=== PATIENT | female | born 1960 | race Caucasian/White ===

== ENCOUNTER 2017-08-20 00:10 | Emergency (ER) | payer OTHER, MEDICARE ==
[2017-08-20 00:17] VITALS: PULSE 61; RESP 18; TEMP 97.7
--- NOTE | 2017-08-20 00:25 | ED ---
General Adult HPI - General Chief complaint: Recheck/Abnormal Lab/Rx Stated complaint: High Blood Sugar Time Seen by Provider: 08/20/17 00:15 Source: patient, RN notes reviewed Mode of arrival: ambulatory Limitations: no limitations - History of Present Illness Initial comments: This is a 56-year-old female with a past medical history significant for kidney transplant and diabetes. Patient comes in today because she ran out of insulin for her insulin pump about 1 hour prior to arrival. Patient states she's completely asymptomatic. Patient states her blood pressure was mildly elevated in triage because she is she is very anxious and she does not want to be treated for that while she's here at this time. Patient also does not want any subcu Humalog she will bolus herself with her pump. Patient denies any recent fever chills or cough. Patient denies any chest pain difficulty breathing shortest breath per patient denies any abdominal pain patient denies nausea vomiting diarrhea. Patient does not want to be worked up for anything she just would like some insulin for her insulin pump. - Related Data Home Medications Medication Instructions Recorded Confirmed Aspirin 81 mg PO DAILY 10/02/15 01/10/16 Levothyroxine Sodium [Synthroid] 100 mcg PO QAM 10/02/15 01/10/16 Sertraline HCl 100 mg PO HS 10/02/15 01/10/16 Metoprolol Tartrate [Lopressor] 100 mg PO BID 12/04/15 01/10/16 Isosorbide Mononitrate ER [Imdur] 60 mg PO QAM 01/02/16 01/10/16 Nitroglycerin Sl Tabs [Nitrostat] 0.4 mg SL Q5M PRN 01/02/16 01/10/16 amLODIPine [Norvasc] 10 mg PO QAM 01/02/16 01/10/16 Hydrocodone/Acetaminophen [Concepcion 1 - 2 tab PO Q4HR PRN 01/09/16 01/10/16 5-325] Insulin Lispro [humaLOG] See Protocol SQ CONTINUOUS 01/10/16 01/10/16 Propylene Glycol/Peg 400/Pf 1 drop BOTH EYES BID 01/10/16 01/10/16 [Systane 0.3-0.4% Eye Drops] Previous Rx's Medication Instructions Recorded ALPRAZolam [Xanax] 0.25 mg PO TID PRN #90 tab 12/12/15 Sevelamer [Renvela] 800 mg PO TID-W/MEALS #90 tab 12/12/15 Atorvastatin [Lipitor] 40 mg PO HS #90 tab 01/05/16 Ranolazine [Ranexa] 500 mg PO Q12HR #180 tab.er.12h 01/05/16 Amikacin IV Per Pharmacy [Pharmacy 1 each MISCELLANE DIRECTED #42 01/16/16 To Dose IV Amikacin] misc Darbepoetin Crispin [Aranesp] 40 mcg SQ Q7D #4 syringe 01/16/16 Doxycycline [Vibramycin] 100 mg PO BID #84 cap 01/16/16 Folic Acid-Vit B Complex-Vit C 1 each PO DAILY@1200 cap 01/16/16 [Nephrocaps] Furosemide [Lasix] 60 mg PO DAILY #180 tab 01/16/16 Lactulose [Cephulac] 30 gm PO DAILY #1000 ml 01/16/16 Melatonin 6 mg PO HS #60 tablet 01/16/16 Allergies Allergy/AdvReac Type Severity Reaction Status Date / Time nifedipine [From Procardia] AdvReac Rapid Verified 08/20/17 00:17 Heart Rate Review of Systems ROS Statement: Those systems with pertinent positive or pertinent negative responses have been documented in the HPI. ROS Other: All systems not noted in ROS Statement are negative. Past Medical History Past Medical History: Coronary Artery Disease (CAD), Chest Pain / Angina, Diabetes Mellitus, Hyperlipidemia, Hypertension, Myocardial Infarction ([place]), Thyroid Disorder Additional Past Medical History / Comment(s): Diabetes mellitus type 1 SINCE AGE 5 YRS. end-stage renal disease on hemodialysis Saturday. Last Myocardial Infarction Date:: December 2010 History of Any Multi-Drug Resistant Organisms: CRE Date of last positivie culture/infection: 01/10/16 *CRE-[facility] Serratia confirmed by [facility] MDRO Source:: blood see lab scanned report Past Surgical History: Appendectomy, Section, Coronary Bypass/CABG, Heart Catheterization, Hysterectomy, Orthopedic Surgery Additional Past Surgical History / Comment(s): Balloon angioplasty 2010 right main with 90% occlusion prior. Multiple heart caTHS. CABG 1 vessel disease 2001. SEQUEIRA to the LAD. BILATERAL CATARACTS REMOVED/IMPLANTS. Right IJ catheter placed 12/08/[address] Forrest. CAPD catheter on 01/05/[address] Willard. ORIF of the left wrist.. Past Anesthesia/Blood Transfusion Reactions: Postoperative Nausea & Vomiting ( PONV) Past Psychological History: Depression Smoking Status: Former smoker Past Alcohol Use History: Rare Past Drug Use History: None Reported - Past Family History Mother Family Medical History: Diabetes Mellitus Additional Family Medical History / Comment(s): Mother is alive at age 76 with history of diabetes mellitus type 2 diet-controlled, hypertension, irritable bowel syndrome Father Family Medical History: AFIB, Diabetes Mellitus, Hypertension Additional Family Medical History / Comment(s): Father is alive at age 77 with history of HIV fibrillation status post cardioversion and ablation, alcoholism, diabetes mellitus type 2, hypertension, obstructive sleep apnea with CPAP. Sister(s) Family Medical History: No Reported History Daughter(s) Family Medical History: No Reported History Additional Family Medical History / Comment(s): One daughter age 31 was cerebral palsy Son(s) Family Medical History: No Reported History Additional Family Medical History / Comment(s): One son age 29 with no major medical problems. General Exam - General Exam Comments Initial Comments: GENERAL: Patient is well-developed and well-nourished. Patient is nontoxic and well- hydrated and is in no acute distress. ENT: Neck is soft and supple. No significant lymphadenopathy is noted. EYES: The sclera were anicteric and conjunctiva were pink and moist. Extraocular movements were intact and pupils were equal round and reactive to light. Eyelids were unremarkable. PULMONARY: Unlabored respirations. Good breath sounds bilaterally. No audible rales rhonchi or wheezing was noted. CARDIOVASCULAR: There is a regular rate and rhythm without any murmurs gallops or rubs. SKIN: Skin is clear with no lesions or rashes and otherwise unremarkable. NEUROLOGIC: Patient is alert and oriented x3. Cranial nerves II through XII are grossly intact. Motor and sensory are also intact. Normal speech, volume and content. Symmetrical smile. MUSCULOSKELETAL: Normal extremities with adequate strength and full range of motion. LYMPHATICS: No significant lymphadenopathy is noted PSYCHIATRIC: Normal psychiatric evaluation. Limitations: no limitations Course Vital Signs 08/20/17 00:15 Temperature 97.7 F Pulse Rate 61 Respiratory 18 Rate Blood Pressure 206/82 O2 Sat by Pulse 99 Oximetry Disposition Clinical Impression: Encounter for medication refill Disposition: HOME SELF-CARE Condition: Good Instructions: Type 1 Diabetes in Adults (ED) Referrals: Jean Paul Bai MD [Primary Care Provider] - 1-2 days Time of Disposition: 00:24
[2017-08-20 00:29] LABS: Glucose,Whole Blood 190 mg/dL (75-99)
[2017-08-20 00:54] VITALS: BP 167/70
[2017-08-20] MEDS ORDERED: Insulin Aspart (For Pump) 100 UNIT/ML VIAL SQ-PUMP ONE (01:00)
== END 2017-08-20 00:54 | disposition home or self-care (01) ==
LOC: EC 00:10
DX: Z76.0 Encounter for issue of repeat prescription (principal); I25.119 Atherosclerotic heart disease of native coronary artery with unspecified angina pectoris; I25.2 Old myocardial infarction; E07.9 Disorder of thyroid, unspecified; E10.22 Type 1 diabetes mellitus with diabetic chronic kidney disease; I12.0 Hypertensive chronic kidney disease with stage 5 chronic kidney disease or end stage renal disease; N18.6 End stage renal disease; Z99.2 Dependence on renal dialysis; Z87.891 Personal history of nicotine dependence; Z79.4 Long term (current) use of insulin; Z79.82 Long term (current) use of aspirin; Z79.899 Other long term (current) drug therapy; Z88.8 Allergy status to other drugs, medicaments and biological substances; Z94.0 Kidney transplant status; Z83.3 Family history of diabetes mellitus
CPT/HCPCS: 36415; 99283

== ENCOUNTER 2018-03-06 23:13 | Inpatient (IN) | payer OTHER, MEDICARE ==
--- NOTE | 2018-03-06 23:23 | ED ---
General Adult HPI <Hugo Myers - Last Filed: 03/06/18 23:55> <Srikanth Hinson - Last Filed: 03/10/18 21:10> - General Stated complaint: Chest pain Time Seen by Provider: 03/06/18 23:19 - History of Present Illness Initial comments: This is a 57-year-old female the ER was significant history of chest pain coming in with chest pain today. Patient's chest pain is not relieved by taking 3 nitros and nitro paste to anterior chest wall. Patient has significant cardiac history. No recent travel she no sick contacts no fevers no cough no congestion. Patient has also cooperative shortness of breath mild diaphoresis. No current diaphoresis no current shortness of breath. Patient is currently chest pain-free (Hugo Myers) - Related Data Home Medications Medication Instructions Recorded Confirmed Aspirin 81 mg PO DAILY 10/02/15 03/06/18 Levothyroxine Sodium [Synthroid] 100 mcg PO QAM 10/02/15 03/06/18 Sertraline HCl 100 mg PO HS 10/02/15 03/06/18 Isosorbide Mononitrate ER [Imdur] 60 mg PO QAM 01/02/16 03/06/18 Nitroglycerin Sl Tabs [Nitrostat] 0.4 mg SL Q5M PRN 01/02/16 03/06/18 Propylene Glycol/Peg 400/Pf 1 drop BOTH EYES BID 01/10/16 03/06/18 [Systane 0.3-0.4% Eye Drops] Furosemide [Lasix] 20 mg PO HS 03/06/18 03/06/18 Furosemide [Lasix] 40 mg PO DAILY 03/06/18 03/06/18 INSULIN LISPRO (For Pump) [humaLOG 0.01 units SQ-PUMP CONTINUOUS 03/06/18 (For Pump)] Metoprolol Succinate (ER) [Toprol 100 mg PO BID 03/06/18 03/06/18 XL] Pantoprazole Sodium [Protonix] 40 mg PO DAILY 03/06/18 03/06/18 Tacrolimus [Prograf] 2 mg PO BID 03/06/18 03/06/18 azaTHIOprine [Imuran] 100 mg PO DAILY 03/06/18 03/06/18 predniSONE 5 mg PO DAILY 03/06/18 03/06/18 Previous Rx's Medication Instructions Recorded ALPRAZolam [Xanax] 0.25 mg PO TID PRN #90 tab 12/12/15 Atorvastatin [Lipitor] 40 mg PO HS #30 tab 03/10/18 Cephalexin [Keflex] 250 mg PO Q12HR #22 capsule 03/10/18 Clopidogrel [Plavix] 75 mg PO DAILY #30 tab 03/10/18 amLODIPine [Norvasc] 5 mg PO DAILY #30 tab 03/10/18 Allergies Allergy/AdvReac Type Severity Reaction Status Date / Time mycophenolate mofetil AdvReac Oral Ulcers Verified 03/06/18 23:38 [From CellCept] nifedipine [From Procardia] AdvReac Rapid Verified 03/06/18 23:38 Heart Rate NSAIDS (Non-Steroidal AdvReac Chest Pain Verified 03/07/18 18:32 Anti-Inflamma Review of Systems ROS Other: All systems not noted in ROS Statement are negative. <Hugo Myers - Last Filed: 03/06/18 23:55> ROS Other: All systems not noted in ROS Statement are negative. <Srikanth Hinson - Last Filed: 03/10/18 21:10> ROS Statement: Those systems with pertinent positive or pertinent negative responses have been documented in the HPI. Past Medical History Past Medical History: Coronary Artery Disease (CAD), Chest Pain / Angina, Diabetes Mellitus, Hyperlipidemia, Hypertension, Myocardial Infarction ([place]), Thyroid Disorder Additional Past Medical History / Comment(s): Diabetes mellitus type 1 SINCE AGE 5 YRS. end-stage renal disease on hemodialysis Saturday. Last Myocardial Infarction Date:: December 2010 History of Any Multi-Drug Resistant Organisms: CRE Date of last positivie culture/infection: 01/10/16 *CRE-[facility]PC Serratia confirmed by [facility] MDRO Source:: blood see lab scanned report Past Surgical History: Appendectomy, Section, Coronary Bypass/CABG, Heart Catheterization, Hysterectomy, Orthopedic Surgery Additional Past Surgical History / Comment(s): Balloon angioplasty 2010 right main with 90% occlusion prior. Multiple heart caTHS. CABG 1 vessel disease 2001. SEQUEIRA to the LAD. BILATERAL CATARACTS REMOVED/IMPLANTS. Right IJ catheter placed 12/08/[address] Forrest. CAPD catheter on 01/05/[address] Willard. ORIF of the left wrist.. Past Anesthesia/Blood Transfusion Reactions: Postoperative Nausea & Vomiting ( PONV) Past Psychological History: Depression Smoking Status: Former smoker Past Alcohol Use History: Rare Past Drug Use History: None Reported - Past Family History Mother Family Medical History: Diabetes Mellitus Additional Family Medical History / Comment(s): Mother is alive at age 76 with history of diabetes mellitus type 2 diet-controlled, hypertension, irritable bowel syndrome Father Family Medical History: AFIB, Diabetes Mellitus, Hypertension Additional Family Medical History / Comment(s): Father is alive at age 77 with history of HIV fibrillation status post cardioversion and ablation, alcoholism, diabetes mellitus type 2, hypertension, obstructive sleep apnea with CPAP. Sister(s) Family Medical History: No Reported History Daughter(s) Family Medical History: No Reported History Additional Family Medical History / Comment(s): One daughter age 31 was cerebral palsy Son(s) Family Medical History: No Reported History Additional Family Medical History / Comment(s): One son age 29 with no major medical problems. <Hugo Myers - Last Filed: 03/06/18 23:55> General Exam General appearance: alert, in no apparent distress Head exam: Present: atraumatic, normocephalic, normal inspection Eye exam: Present: normal appearance, PERRL, EOMI. Absent: scleral icterus, conjunctival injection, periorbital swelling ENT exam: Present: normal exam, mucous membranes moist Neck exam: Present: normal inspection. Absent: tenderness, meningismus, lymphadenopathy Respiratory exam: Present: normal lung sounds bilaterally. Absent: respiratory distress, wheezes, rales, rhonchi, stridor Cardiovascular Exam: Present: regular rate, normal rhythm, normal heart sounds. Absent: systolic murmur, diastolic murmur, rubs, gallop, clicks GI/Abdominal exam: Present: soft, normal bowel sounds. Absent: distended, tenderness, guarding, rebound, rigid Extremities exam: Present: normal inspection, full ROM, normal capillary refill. Absent: tenderness, pedal edema, joint swelling, calf tenderness Back exam: Present: normal inspection Neurological exam: Present: alert, oriented X3, CN II-XII intact Psychiatric exam: Present: normal affect, normal mood Skin exam: Present: warm, dry, intact, normal color. Absent: rash <Hugo Myers - Last Filed: 03/06/18 23:55> Course <Hugo Myers - Last Filed: 03/06/18 23:55> <Srikanth Hinson - Last Filed: 03/10/18 21:10> Vital Signs 03/06/18 03/07/18 03/07/18 23:17 00:04 00:11 Temperature 97.9 F Pulse Rate 68 67 60 Pulse Rate [ Pulse Oximetery ] Respiratory 18 18 18 Rate Blood Pressure 221/87 200/84 179/77 Blood Pressure [Right Arm Sitting] O2 Sat by Pulse 100 99 99 Oximetry 03/07/18 03/07/18 03/07/18 01:13 01:29 01:43 Temperature Pulse Rate 70 70 68 Pulse Rate [ Pulse Oximetery ] Respiratory 18 18 18 Rate Blood Pressure 191/90 160/73 123/58 Blood Pressure [Right Arm Sitting] O2 Sat by Pulse 96 98 99 Oximetry 03/07/18 03/07/18 03/07/18 01:54 02:21 03:17 Temperature 98.8 F 97.8 F Pulse Rate 68 68 Pulse Rate [ 88 Pulse Oximetery ] Respiratory 18 18 18 Rate Blood Pressure 128/58 158/72 Blood Pressure 170/90 [Right Arm Sitting] O2 Sat by Pulse 96 99 98 Oximetry - Reevaluation(s) Reevaluation #1: 03/07/18 01:57 I received care of this patient has a sign out from Dr. Myres. Received notification the patient had minimally elevated troponin and also performed reevaluation. Patient is hypertensive. Medications added, including nitroglycerin drip, heparin, morphine. Patient's blood pressure has improved and symptoms resolved. Case also discussed with architectural technician and there treatment recommendations are incorporated. (Srikanth Hinson) EKG Findings - EKG Comments: EKG Findings:: EKG shows normal sinus rhythm rate of 60, MT 164, QRS 84, QTC 444 <Hugo Myers - Last Filed: 03/06/18 23:55> Medical Decision Making - Lab Data Result diagrams: 03/10/18 06:20 03/10/18 06:20 <Srikanth Hinson - Last Filed: 03/10/18 21:10> - Lab Data Lab Results 03/06/18 03/06/18 03/06/18 Range/Units 23:40 23:40 23:40 WBC 4.8 (3.8-10.6) k/uL RBC 3.85 (3.80-5.40) m/uL Hgb 11.8 (11.4-16.0) gm/dL Hct 36.0 (34.0-46.0) % MCV 93.5 (80.0-100.0) fL MCH 30.6 (25.0-35.0) pg MCHC 32.7 (31.0-37.0) g/dL RDW 16.5 H (11.5-15.5) % Plt Count 225 (150-450) k/uL Neutrophils % 81 % Lymphocytes % 7 % Monocytes % 6 % Eosinophils % 3 % Basophils % 0 % Neutrophils # 3.9 (1.3-7.7) k/uL Lymphocytes # 0.3 L (1.0-4.8) k/uL Monocytes # 0.3 (0-1.0) k/uL Eosinophils # 0.1 (0-0.7) k/uL Basophils # 0.0 (0-0.2) k/uL Anisocytosis Slight PT (9.0-12.0) sec INR (<1.2) APTT (22.0-30.0) sec Sodium 137 (137-145) mmol/L Potassium 5.2 H (3.5-5.1) mmol/L Chloride 100 (98-107) mmol/L Carbon Dioxide 29 (22-30) mmol/L Anion Gap 8 mmol/L BUN 43 H (7-17) mg/dL Creatinine 1.90 H (0.52-1.04) mg/dL Est GFR (CKD-EPI)AfAm 33 (>60 ml/min/1.73 sqM) Est GFR (CKD-EPI)NonAf 29 (>60 ml/min/1.73 sqM) Glucose 356 H (74-99) mg/dL POC Glucose (mg/dL) (75-99) mg/dL POC Glu Automotive Engineer ID Estimated Ave Glu mg/dL Hemoglobin A1c (4.0-6.0) % Calcium 9.2 (8.4-10.2) mg/dL Magnesium 2.1 (1.6-2.3) mg/dL Total Bilirubin 0.4 (0.2-1.3) mg/dL AST 22 (14-36) U/L ALT 29 (9-52) U/L Alkaline Phosphatase 126 (38-126) U/L Total Creatine Kinase 43 (30-135) U/L CK-MB (CK-2) 0.9 (0.0-2.4) ng/mL CK-MB (CK-2) Rel Index 2.1 Troponin I 0.074 H* (0.000-0.034) ng/mL Total Protein 6.1 L (6.3-8.2) g/dL Albumin 3.7 (3.5-5.0) g/dL 03/06/18 03/07/18 03/07/18 Range/Units 23:40 01:50 06:30 WBC (3.8-10.6) k/uL RBC (3.80-5.40) m/uL Hgb (11.4-16.0) gm/dL Hct (34.0-46.0) % MCV (80.0-100.0) fL MCH (25.0-35.0) pg MCHC (31.0-37.0) g/dL RDW (11.5-15.5) % Plt Count (150-450) k/uL Neutrophils % % Lymphocytes % % Monocytes % % Eosinophils % % Basophils % % Neutrophils # (1.3-7.7) k/uL Lymphocytes # (1.0-4.8) k/uL Monocytes # (0-1.0) k/uL Eosinophils # (0-0.7) k/uL Basophils # (0-0.2) k/uL Anisocytosis PT 10.2 (9.0-12.0) sec INR 1.0 (<1.2) APTT 23.3 (22.0-30.0) sec Sodium (137-145) mmol/L Potassium (3.5-5.1) mmol/L Chloride (98-107) mmol/L Carbon Dioxide (22-30) mmol/L Anion Gap mmol/L BUN (7-17) mg/dL Creatinine (0.52-1.04) mg/dL Est GFR (CKD-EPI)AfAm (>60 ml/min/1.73 sqM) Est GFR (CKD-EPI)NonAf (>60 ml/min/1.73 sqM) Glucose (74-99) mg/dL POC Glucose (mg/dL) 356 H 275 H (75-99) mg/dL POC Glu Automotive Engineer JANICE Kori Viramontes [address] Glu mg/dL Hemoglobin A1c (4.0-6.0) % Calcium (8.4-10.2) mg/dL Magnesium (1.6-2.3) mg/dL Total Bilirubin (0.2-1.3) mg/dL AST (14-36) U/L ALT (9-52) U/L Alkaline Phosphatase (38-126) U/L Total Creatine Kinase (30-135) U/L CK-MB (CK-2) (0.0-2.4) ng/mL CK-MB (CK-2) Rel Index Troponin I (0.000-0.034) ng/mL Total Protein (6.3-8.2) g/dL Albumin (3.5-5.0) g/dL 03/07/18 03/07/18 03/07/18 Range/Units 06:33 06:33 10:29 WBC (3.8-10.6) k/uL RBC (3.80-5.40) m/uL Hgb (11.4-16.0) gm/dL Hct (34.0-46.0) % MCV (80.0-100.0) fL MCH (25.0-35.0) pg MCHC (31.0-37.0) g/dL RDW (11.5-15.5) % Plt Count (150-450) k/uL Neutrophils % % Lymphocytes % % Monocytes % % Eosinophils % % Basophils % % Neutrophils # (1.3-7.7) k/uL Lymphocytes # (1.0-4.8) k/uL Monocytes # (0-1.0) k/uL Eosinophils # (0-0.7) k/uL Basophils # (0-0.2) k/uL Anisocytosis PT (9.0-12.0) sec INR (<1.2) APTT 86.7 H (22.0-30.0) sec Sodium (137-145) mmol/L Potassium (3.5-5.1) mmol/L Chloride (98-107) mmol/L Carbon Dioxide (22-30) mmol/L Anion Gap mmol/L BUN (7-17) mg/dL Creatinine (0.52-1.04) mg/dL Est GFR (CKD-EPI)AfAm (>60 ml/min/1.73 sqM) Est GFR (CKD-EPI)NonAf (>60 ml/min/1.73 sqM) Glucose (74-99) mg/dL POC Glucose (mg/dL) 336 H (75-99) mg/dL POC Glu Automotive Engineer ID Shelli Collins [address] Glu mg/dL Hemoglobin A1c (4.0-6.0) % Calcium (8.4-10.2) mg/dL Magnesium (1.6-2.3) mg/dL Total Bilirubin (0.2-1.3) mg/dL AST (14-36) U/L ALT (9-52) U/L Alkaline Phosphatase (38-126) U/L Total Creatine Kinase 43 (30-135) U/L CK-MB (CK-2) 1.4 (0.0-2.4) ng/mL CK-MB (CK-2) Rel Index 3.3 Troponin I 0.134 H* (0.000-0.034) ng/mL Total Protein (6.3-8.2) g/dL Albumin (3.5-5.0) g/dL 03/07/18 03/07/18 03/07/18 Range/Units 10:30 11:41 11:47 WBC (3.8-10.6) k/uL RBC (3.80-5.40) m/uL Hgb (11.4-16.0) gm/dL Hct (34.0-46.0) % MCV (80.0-100.0) fL MCH (25.0-35.0) pg MCHC (31.0-37.0) g/dL RDW (11.5-15.5) % Plt Count (150-450) k/uL Neutrophils % % Lymphocytes % % Monocytes % % Eosinophils % % Basophils % % Neutrophils # (1.3-7.7) k/uL Lymphocytes # (1.0-4.8) k/uL Monocytes # (0-1.0) k/uL Eosinophils # (0-0.7) k/uL Basophils # (0-0.2) k/uL Anisocytosis PT (9.0-12.0) sec INR (<1.2) APTT (22.0-30.0) sec Sodium (137-145) mmol/L Potassium (3.5-5.1) mmol/L Chloride (98-107) mmol/L Carbon Dioxide (22-30) mmol/L Anion Gap mmol/L BUN (7-17) mg/dL Creatinine (0.52-1.04) mg/dL Est GFR (CKD-EPI)AfAm (>60 ml/min/1.73 sqM) Est GFR (CKD-EPI)NonAf (>60 ml/min/1.73 sqM) Glucose (74-99) mg/dL POC Glucose (mg/dL) 328 H 306 H (75-99) mg/dL POC Glu Automotive Engineer Shelli Mckeon Sherry [address] Glu mg/dL Hemoglobin A1c (4.0-6.0) % Calcium (8.4-10.2) mg/dL Magnesium (1.6-2.3) mg/dL Total Bilirubin (0.2-1.3) mg/dL AST (14-36) U/L ALT (9-52) U/L Alkaline Phosphatase (38-126) U/L Total Creatine Kinase 43 (30-135) U/L CK-MB (CK-2) 1.6 (0.0-2.4) ng/mL CK-MB (CK-2) Rel Index 3.7 Troponin I 0.106 H* (0.000-0.034) ng/mL Total Protein (6.3-8.2) g/dL Albumin (3.5-5.0) g/dL 03/07/18 03/07/18 Range/Units 11:47 13:55 WBC (3.8-10.6) k/uL RBC (3.80-5.40) m/uL Hgb (11.4-16.0) gm/dL Hct (34.0-46.0) % MCV (80.0-100.0) fL MCH (25.0-35.0) pg MCHC (31.0-37.0) g/dL RDW (11.5-15.5) % Plt Count (150-450) k/uL Neutrophils % % Lymphocytes % % Monocytes % % Eosinophils % % Basophils % % Neutrophils # (1.3-7.7) k/uL Lymphocytes # (1.0-4.8) k/uL Monocytes # (0-1.0) k/uL Eosinophils # (0-0.7) k/uL Basophils # (0-0.2) k/uL Anisocytosis PT (9.0-12.0) sec INR (<1.2) APTT 35.4 H (22.0-30.0) sec Sodium (137-145) mmol/L Potassium (3.5-5.1) mmol/L Chloride (98-107) mmol/L Carbon Dioxide (22-30) mmol/L Anion Gap mmol/L BUN (7-17) mg/dL Creatinine (0.52-1.04) mg/dL Est GFR (CKD-EPI)AfAm (>60 ml/min/1.73 sqM) Est GFR (CKD-EPI)NonAf (>60 ml/min/1.73 sqM) Glucose (74-99) mg/dL POC Glucose (mg/dL) (75-99) mg/dL POC Glu Automotive Engineer ID Est[address] Glu mg/dL 189 Hemoglobin A1c 8.2 H (4.0-6.0) % Calcium (8.4-10.2) mg/dL Magnesium (1.6-2.3) mg/dL Total Bilirubin (0.2-1.3) mg/dL AST (14-36) U/L ALT (9-52) U/L Alkaline Phosphatase (38-126) U/L Total Creatine Kinase (30-135) U/L CK-MB (CK-2) (0.0-2.4) ng/mL CK-MB (CK-2) Rel Index Troponin I (0.000-0.034) ng/mL Total Protein (6.3-8.2) g/dL Albumin (3.5-5.0) g/dL Critical Care Time Critical Care Time: Yes Total Critical Care Time: 31 <Hugo Myers - Last Filed: 03/06/18 23:55> Critical Care Time: Yes <Srikanth Hinson - Last Filed: 03/10/18 21:10> Disposition Is patient prescribed a controlled substance at d/c from ED?: No <Hugo Myers - Last Filed: 03/06/18 23:55> <Srikanth Hinson - Last Filed: 03/10/18 21:10> Clinical Impression: Acute coronary syndrome Disposition: ADMITTED IP TO THIS HOSP Condition: Serious
[2018-03-06] MEDS ORDERED: NITROGLYCERIN SL TABS 0.4 MG TAB SUBLINGUAL PRN (23:35)
[2018-03-06] MEDS ORDERED: ASPIRIN 81 MG PO STA (23:35)
[2018-03-06] MEDS ORDERED: HEPARIN SODIUM,PORCINE 5,000 UNIT/ML 1 ML VIAL IV PRN (23:35)
[2018-03-06] MEDS ORDERED: HEPARIN SOD,PORK IN 0.45% NACL 25,000 UNIT in 0.45% NACL 1 500ML.BAG IV SCH (23:45)
[2018-03-06 23:54] LABS: Anisocytosis Slight; Basophils % (A) 0 %; Eosinophils # (A) 0.1 k/uL (0-0.7); Eosinophils % (A) 3 %; HGB 11.8 gm/dL (11.4-16.0); Lymphocytes # (A) 0.3 k/uL (1.0-4.8); Lymphocytes % (A) 7 %; MCH 30.6 pg (25.0-35.0); MCHC 32.7 g/dL (31.0-37.0); MCV 93.5 fL (80.0-100.0); Monocytes # (A) 0.3 k/uL (0-1.0); Monocytes % (A) 6 %; Neutrophils # (A) 3.9 k/uL (1.3-7.7); Neutrophils % (A) 81 %; Platelet Count 225 k/uL (150-450); RBC 3.85 m/uL (3.80-5.40); RDW 16.5 % (11.5-15.5); WBC 4.8 k/uL (3.8-10.6)
[2018-03-06] MEDS: HEPARIN SODIUM,PORCINE 5,000 UNIT/ML 1 ML VIAL IV ONE ×2 (23:55→23:59)
[2018-03-06] MEDS ORDERED: LABETALOL 5 MG/ML VIAL MDV IVP STA (23:55)
[2018-03-07] LABS: Partial Thromboplastin Time 23.3 sec (22.0-30.0); Prothrombin Time 10.2 sec (9.0-12.0)
[2018-03-07 00:04] LABS: Albumin 3.7 g/dL (3.5-5.0); Calcium 9.2 mg/dL (8.4-10.2); Magnesium 2.1 mg/dL (1.6-2.3); Potassium 5.2 mmol/L (3.5-5.1); Total Bilirubin 0.4 mg/dL (0.2-1.3); Total Protein 6.1 g/dL (6.3-8.2)
[2018-03-07 00:17] LABS: Creatine Kinase MB 0.9 ng/mL (0.0-2.4)
--- NOTE | 2018-03-07 00:24 | XR ---
EXAMINATION TYPE: XR chest 2V DATE OF EXAM: 03/07/2018 COMPARISON: 11/08/2016 HISTORY: Chest pain TECHNIQUE: Frontal and lateral views of the chest are obtained. FINDINGS: Heart and mediastinum are normal. Lungs are clear. Diaphragm is normal. There are sternal wires. Bony thorax is intact. IMPRESSION: Normal chest. There is clearing of the pulmonary edema compared to old exam.
[2018-03-07 00:42] LABS: Troponin I 0.074 ng/mL (0.000-0.034)
[2018-03-07] MEDS ORDERED: LABETALOL 5 MG/ML VIAL MDV IVP STA ×2 (00:49→03:07)
[2018-03-07] MEDS ORDERED: MORPHINE SULFATE 4 MG/ML SYRINGE IVP STA ×2 (00:49→02:45)
[2018-03-07] MEDS ORDERED: NITROGLYCERIN-D5W PMX 50 MG in DEXTROSE/WATER 1 250ML.BAG IV ONE (00:58)
[2018-03-07] MEDS ORDERED: INSULN ASP PRT/INSULIN ASPART 100 UNIT/ML 10 ML VIAL SQ STA (01:15)
[2018-03-07] MEDS ORDERED: HEPARIN SODIUM,PORCINE 5,000 UNIT/ML 1 ML VIAL IV ONE (01:16)
[2018-03-07] MEDS ORDERED: HEPARIN SODIUM,PORCINE 5,000 UNIT/ML 1 ML VIAL IV PRN (01:16)
[2018-03-07] MEDS: HEPARIN SOD,PORK IN 0.45% NACL 25,000 UNIT in 0.45% NACL 1 500ML.BAG IV SCH (01:40)
[2018-03-07] MEDS ORDERED: NITROGLYCERIN SL TABS 0.4 MG TAB SUBLINGUAL PRN (01:53)
[2018-03-07] MEDS ORDERED: ALPRAZolam 0.25 MG TAB PO PRN (01:55)
[2018-03-07 01:57] LABS: Glucose,Whole Blood 356 mg/dL (75-99)
[2018-03-07] MEDS ORDERED: INSULIN LISPRO (For Pump) 100 UNIT/ML VIAL SQ-PUMP SCH (02:00)
[2018-03-07 03:59] VITALS: BMI 27.1
[2018-03-07] MEDS: LEVOTHYROXINE 100 MCG TAB PO SCH (05:52)
[2018-03-07] MEDS: PANTOPRAZOLE 40 MG TABLET PO SCH (05:52)
[2018-03-07] MEDS: MORPHINE SULFATE 2 MG/ML SYRINGE IVP PRN ×2 (06:19→20:33)
[2018-03-07 06:55] LABS: Glucose,Whole Blood 275 mg/dL (75-99)
[2018-03-07 07:20] LABS: Creatine Kinase MB 1.4 ng/mL (0.0-2.4)
[2018-03-07 07:35] LABS: Troponin I 0.134 ng/mL (0.000-0.034)
[2018-03-07] MEDS ORDERED: ASPIRIN 325 MG TAB PO SCH (09:00)
--- NOTE | 2018-03-07 09:14 | P.CRDCN ---
History of Present Illness Consult date: 03/07/18 Requesting physician: Debbie Lopez Consult reason: chest pain Chief complaint: Chest pain History of present illness: This is a 57-year-old female with known history of coronary artery disease and prior bypass surgery approximately 16 years ago, end-stage renal disease, was on peritoneal dialysis, underwent kidney transplant in July 2016 , since her kidney transplant, she has been following with Dr. 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 According to the patient, she states that she had walked up to the attic to bring down his suitcase, when she got down the steps, she states that she had significant chest pressure and heaviness, was quite short of breath, and felt nauseated although she was unable to vomit. She also states that over the past several nights she's been taking nitroglycerin on an almost daily basis. EMS was called and she was brought in here for further evaluation. EKG on presentation here showed a normal sinus rhythm with nonspecific ST-T wave changes in the anterior lateral leads. Subsequent EKG performed this morning shows normal sinus rhythm with no acute changes noted. Chest x-ray normal. Blood pressure on arrival here 221/ 87 with a heart rate in the 80s, 100% on 2 L of oxygen. I pressure this morning 140/60 with a heart rate in the 70s, 99% on 2 L of oxygen. White blood cell count 4.8, 11.8 hemoglobin, platelet count 225. Sodium 137, potassium 5.2 , BUN 43, creatinine 1.9. Magnesium 2.1. Troponin 0.074, 0.134. The patient is currently on aspirin 325 mg daily, Lipitor 20 mg daily, Lasix 40 mg in the morning, 20 in the evening, Synthroid 100 g daily, metoprolol 100 mg twice a day, Prograf, IV nitroglycerin drip at 20 mics and IV heparin. At the time of my examination this morning she denies any chest discomfort or difficulty in breathing. Patient's most recent cardiac catheterization was performed in December 2015, it revealed chronically occluded LAD in the mid segment as well as the PDA , diffuse severe disease in all coronary arteries, patent SEQUEIRA to the LAD, medical therapy was advised at that time, the PDA stent occlusion was chronic, the vessels were diffusely diseased and it was felt that she was not a candidate per for percutaneous revascularization at that time. Past Medical History Past Medical History: Coronary Artery Disease (CAD), Chest Pain / Angina, Diabetes Mellitus, Hyperlipidemia, Hypertension, Myocardial Infarction (OR), Thyroid Disorder Additional Past Medical History / Comment(s): Diabetes mellitus type 1 SINCE AGE 5 YRS. end-stage renal disease on hemodialysis Saturday. patient is no longer getting hemodialysis patient got kidney trans injan of 2016 Last Myocardial Infarction Date:: 2016 History of Any Multi-Drug Resistant Organisms: CRE Date of last positivie culture/infection: 01/10/16 *[facility] confirmed by [facility]O Source:: blood see lab scanned report Past Surgical History: Appendectomy, Section, Coronary Bypass/CABG, Heart Catheterization, Hysterectomy, Orthopedic Surgery Additional Past Surgical History / Comment(s): Balloon angioplasty 2010 right main with 90% occlusion prior. Multiple heart caTHS. CABG 1 vessel disease 2001. SEQUEIRA to the LAD. BILATERAL CATARACTS REMOVED/IMPLANTS. Past Anesthesia/Blood Transfusion Reactions: Postoperative Nausea & Vomiting ( PONV) Past Psychological History: Depression Smoking Status: Never smoker Past Alcohol Use History: Rare Additional Past Alcohol Use History / Comment(s): SMOKING: QUIT IN 1983, ONLY FOR 1 YR, PPD: LESS THAN HALF. Past Drug Use History: None Reported - Past Family History Mother Family Medical History: Diabetes Mellitus Additional Family Medical History / Comment(s): Mother is alive at age 76 with history of diabetes mellitus type 2 diet-controlled, hypertension, irritable bowel syndrome Father Family Medical History: AFIB, Diabetes Mellitus, Hypertension Additional Family Medical History / Comment(s): Father is alive at age 77 with history of HIV fibrillation status post cardioversion and ablation, alcoholism, diabetes mellitus type 2, hypertension, obstructive sleep apnea with CPAP. Sister(s) Family Medical History: No Reported History Daughter(s) Family Medical History: No Reported History Additional Family Medical History / Comment(s): One daughter age 31 was cerebral palsy Son(s) Family Medical History: No Reported History Additional Family Medical History / Comment(s): One son age 29 with no major medical problems. Medications and Allergies Home Medications Medication Instructions Recorded Confirmed Type Aspirin 81 mg PO DAILY 10/02/15 03/06/18 History Levothyroxine Sodium [Synthroid] 100 mcg PO QAM 10/02/15 03/06/18 History Sertraline HCl 100 mg PO HS 10/02/15 03/06/18 History ALPRAZolam [Xanax] 0.25 mg PO TID PRN #90 tab 12/12/15 03/06/18 Rx Isosorbide Mononitrate ER [Imdur] 60 mg PO QAM 01/02/16 03/06/18 History Nitroglycerin Sl Tabs [Nitrostat] 0.4 mg SL Q5M PRN 01/02/16 03/06/18 History Propylene Glycol/Peg 400/Pf 1 drop BOTH EYES BID 01/10/16 03/06/18 History [Systane 0.3-0.4% Eye Drops] Atorvastatin [Lipitor] 20 mg PO HS 03/06/18 03/06/18 History Furosemide [Lasix] 20 mg PO HS 03/06/18 03/06/18 History Furosemide [Lasix] 40 mg PO DAILY 03/06/18 03/06/18 History INSULIN LISPRO (For Pump) [humaLOG 0.01 units SQ-PUMP CONTINUOUS 03/06/18 History (For Pump)] Metoprolol Succinate (ER) [Toprol 100 mg PO BID 03/06/18 03/06/18 History Xl] Pantoprazole Sodium [Protonix] 40 mg PO DAILY 03/06/18 03/06/18 History Tacrolimus [Prograf] 2 mg PO BID 03/06/18 03/06/18 History azaTHIOprine [Imuran] 100 mg PO DAILY 03/06/18 03/06/18 History predniSONE 5 mg PO DAILY 03/06/18 03/06/18 History Allergies Allergy/AdvReac Type Severity Reaction Status Date / Time mycophenolate mofetil AdvReac Oral Ulcers Verified 03/06/18 23:38 [From CellCept] nifedipine [From Procardia] AdvReac Rapid Verified 03/06/18 23:38 Heart Rate Physical Exam Vitals: Vital Signs Temp Pulse Pulse Resp BP BP Pulse Ox 03/07/18 08:00 96.7 F L 70 16 144/65 99 03/07/18 04:43 136/72 03/07/18 04:00 98.2 F 66 18 170/90 98 03/07/18 03:17 97.8 F 68 18 158/72 98 03/07/18 02:21 98.8 F 88 18 170/90 99 03/07/18 01:54 68 18 128/58 96 03/07/18 01:43 68 18 123/58 99 03/07/18 01:29 70 18 160/73 98 03/07/18 01:13 70 18 191/90 96 03/07/18 00:11 60 18 179/77 99 03/07/18 00:04 67 18 200/84 99 03/06/18 23:17 97.9 F 68 18 221/87 100 Intake and Output 03/06/18 03/07/18 03/07/18 22:59 06:59 14:59 Intake Total 13.825 94.284 Output Total 300 Balance -286.175 94.284 Intake: Intake, IV Titration 13.825 94.284 Amount Heparin Sod,Pork in 0.45% 94.284 NaCl 25,000 unit In 0.45 % NaCl 1 500ml.bag @ 12 UNITS/KG/HR 14.58 mls/hr IV .Q24H [facility] Rx#: [id number] Nitroglycerin-D5w Pmx 50 13.825 mg In Dextrose/Water 1 250ml.bag @ 20 MCG/MIN 6 mls/hr IV .Q24H [facility] Rx#: [id number] Output: Urine 300 Other: Weight 63.1 kg PHYSICAL EXAMINATION: GENERAL: 57-year-old female in no acute distress at the time of my examination HEENT: Head is atraumatic, normocephalic. Pupils equal, round. Sclera anicteric. Conjunctiva are clear. Mucous membranes of the mouth are moist. Neck is supple. There is no elevated jugular venous pressure.] bruit is heard. HEART EXAMINATION: Heart S1 and S2 systolic ejection murmur is heard at the base CHEST EXAMINATION: Lungs are clear to auscultation and precussion. No chest wall tenderness is noted on palpation or with deep breathing. ABDOMEN: Soft, nontender. Bowel sounds are heard. No organomegaly noted. EXTREMITIES: 1+ peripheral pulses with no evidence of peripheral edema and no calf tenderness noted. NEUROLOGIC patient is awake, alert and oriented X3. . Results 03/06/18 23:40 03/06/18 23:40 Cardiac Enzymes 03/06/18 03/06/18 03/07/18 Range/Units 23:40 23:40 06:33 AST 22 (14-36) U/L CK-MB (CK-2) 0.9 1.4 (0.0-2.4) ng/mL Troponin I 0.074 H* 0.134 H* (0.000-0.034) ng/mL Coagulation 03/06/18 03/07/18 Range/Units 23:40 06:33 PT 10.2 (9.0-12.0) sec APTT 23.3 86.7 H (22.0-30.0) sec CBC 03/06/18 Range/Units 23:40 WBC 4.8 (3.8-10.6) k/uL RBC 3.85 (3.80-5.40) m/uL Hgb 11.8 (11.4-16.0) gm/dL Hct 36.0 (34.0-46.0) % Plt Count 225 (150-450) k/uL Comprehensive Metabolic Panel 03/06/18 Range/Units 23:40 Sodium 137 (137-145) mmol/L Potassium 5.2 H (3.5-5.1) mmol/L Chloride 100 (98-107) mmol/L Carbon Dioxide 29 (22-30) mmol/L BUN 43 H (7-17) mg/dL Creatinine 1.90 H (0.52-1.04) mg/dL Glucose 356 H (74-99) mg/dL Calcium 9.2 (8.4-10.2) mg/dL AST 22 (14-36) U/L ALT 29 (9-52) U/L Alkaline Phosphatase 126 (38-126) U/L Total Protein 6.1 L (6.3-8.2) g/dL Albumin 3.7 (3.5-5.0) g/dL Current Medications Generic Name Dose Route Start Last Admin Trade Name Freq PRN Reason Stop Dose Admin Alprazolam 0.25 mg 03/07/18 01:55 Xanax PO TID PRN Anxiety Artificial Tears 1 drops 03/07/18 09:00 Artificial Tear Drops BOTH EYES BID [facility] Aspirin 325 mg 03/08/18 09:00 Aspirin PO DAILY [facility] Atorvastatin Calcium 20 mg 03/07/18 21:00 Lipitor PO HS [facility] Azathioprine 100 mg 03/07/18 09:00 Imuran PO DAILY [facility] Furosemide 40 mg 03/07/18 09:00 Lasix PO DAILY [facility] Furosemide 20 mg 03/07/18 21:00 Lasix PO HS [facility] Heparin Sodium (Porcine) 0 unit 03/07/18 01:16 Heparin IV PER PROTOCOL PRN Low PTT Protocol Nitroglycerin/Dextrose 50 mg/ 250 mls @ 6 mls/hr 03/07/18 00:58 03/07/18 02: 50 IV Solution IV 03/08/18 00:57 30 mcg/min .Q24H [facility] 9 mls/hr Titration Protocol 20 MCG/MIN Heparin Sodium/Sodium Chloride 500 mls @ 14.58 mls/hr 03/07/18 01:30 08:08 25,000 unit/ Sodium Chloride IV 10 units/kg/hr .Q24H [facility] 12.15 mls/hr Titration Protocol 12 UNITS/KG/HR Insulin Human Lispro 0.01 unit 03/07/18 02:00 03/07/18 04:36 Humalog (For Pump) SQ-PUMP Not Given CONTINUOUS [facility] Isosorbide Mononitrate 60 mg 03/07/18 09:00 Imdur PO QAM [facility] Levothyroxine Sodium 100 mcg 03/07/18 06:30 03/07/18 05:52 Synthroid PO 100 mcg QAM@0630 [facility] Administration Metoprolol Succinate 100 mg 03/07/18 09:00 Toprol Xl PO BID [facility] Morphine Sulfate 2 mg 03/07/18 05:37 03/07/18 06:19 Morphine Sulfate (Inj) IVP 2 mg Q3H PRN Administration Pain/Discomfort Nitroglycerin 0.4 mg 03/07/18 01:53 Nitrostat SUBLINGUAL Q5M PRN Chest Pain Pantoprazole Sodium 40 mg 03/07/18 07:30 03/07/18 05:52 Protonix PO 40 mg AC-BRKFST [facility] Administration Prednisone 5 mg 03/07/18 09:00 PO DAILY [facility] Sertraline HCl 100 mg 03/07/18 21:00 Zoloft PO HS [facility] Tacrolimus 2 mg 03/07/18 09:00 Prograf PO BID [facility] Intake and Output 03/06/18 03/07/18 03/07/18 22:59 06:59 14:59 Intake Total 13.825 94.284 Output Total 300 Balance -286.175 94.284 Intake: Intake, IV Titration 13.825 94.284 Amount Heparin Sod,Pork in 0.45% 94.284 NaCl 25,000 unit In 0.45 % NaCl 1 500ml.bag @ 12 UNITS/KG/HR 14.58 mls/hr IV .Q24H [facility] Rx#: [id number] Nitroglycerin-D5w Pmx 50 13.825 mg In Dextrose/Water 1 250ml.bag @ 20 MCG/MIN 6 mls/hr IV .Q24H [facility] Rx#: [id number] Output: Urine 300 Other: Weight 63.1 kg 03/06/18 23:40 03/06/18 23:40 EKG Interpretations (text) EKG shows a normal sinus rhythm with nonspecific ST-T wave changes noted in the anterior lateral leads. Assessment and Plan Plan: Assessment and plan #1 symptoms of chest discomfort with associated shortness of breath and nausea, suggestive of acute coronary syndrome. EKG shows normal sinus rhythm with ST-T wave changes noted in the anterior lateral leads. Troponins 0.074, 0.134. #2 history of coronary artery disease with prior bypass surgery in 2001, most recent cardiac catheterization was performed in December 2015 which revealed a chronically occluded LAD in the mid segment as well as right PDA. Diffuse severe disease in all coronary arteries, patent SEQUEIRA to the LAD, medical therapy advised at that time. #3 end-stage renal disease, was on hemodialysis, she underwent kidney transplant in July of last year #4 diabetes #5 hypertension, uncontrolled #6 hyperlipidemia #7 hypothyroidism #8 PVD #9 prior history of smoking Plan We will obtain an echocardiogram with Doppler study as well as third troponin value. Continue with her current medications. Further recommendations to follow. DNP note has been reviewed, I agree with a documented findings and plan of care. Patient was seen and examined.
[2018-03-07 10:34] LABS: Glucose,Whole Blood 336 mg/dL (75-99)
[2018-03-07 10:34] LABS: Glucose,Whole Blood 328 mg/dL (75-99)
[2018-03-07] MEDS: ARTIFICIAL TEARS-HYPROMELLOSE DROPS 15 ML BTL BOTH EYES SCH ×2 (10:43→20:10)
[2018-03-07] MEDS: METOPROLOL SUCCINATE (ER) 100 MG TAB.ER.24H PO SCH ×2 (10:43→20:10)
[2018-03-07] MEDS: FUROSEMIDE 40 MG TAB PO SCH (10:43)
[2018-03-07] MEDS: predniSONE 5 MG TAB PO SCH (10:44)
[2018-03-07] MEDS: azaTHIOprine 50 MG TAB PO SCH (10:44)
[2018-03-07] MEDS: ISOSORBIDE MONONITRATE ER 60 MG TAB.ER.24H PO SCH (10:44)
[2018-03-07] MEDS: TACROLIMUS 1 MG CAP PO SCH ×2 (10:44→20:10)
[2018-03-07] MEDS: INSULIN ASPART 100 UNIT/ML 1 ML 10 ML VIAL SQ SCH ×2 (10:48→17:15)
[2018-03-07 12:01] LABS: Glucose,Whole Blood 306 mg/dL (75-99)
--- NOTE | 2018-03-07 12:09 | ECHOF ---
Referral Reason:chest pain MEASUREMENTS -------- HEIGHT: 152.4 cm WEIGHT: 63.0 kg BP: 144/65 RVIDd: 2.3 cm (< 3.3) IVSd: 1.3 cm (0.6 - 1.1) LVIDd: 4.0 cm (3.9 - 5.3) LVPWd: 1.3 cm (0.6 - 1.1) IVSs: 1.5 cm LVIDs: 3.1 cm LVPWs: 1.5 cm LAESV Index (A-L): 22.38 ml/m Ao Diam: 2.3 cm (2.0 - 3.7) AV Cusp: 1.6 cm (1.5 - 2.6) LA Diam: 2.7 cm (2.7 - 3.8) EPSS: 0.6 cm MV E Tyler: 1.41 m/s MV DecT: 189 ms MV A Tyler: 1.07 m/s MV E/A Ratio: 1.32 RAP: 5.00 mmHg RVSP: 44.74 mmHg MV EF SLOPE: 55.59 mm/s (70 - 150) MV EXCURSION: 1.36 cm (> 18.000) FINDINGS -------- Sinus rhythm. This was a technically adequate study. The left ventricular size is normal. Left ventricular wall thickness is normal. Overall left vent ricular systolic function is mild-moderately impaired with, an EF between 40 - 45 %. Mid lateral LV wall motion is hypokinetic. Mid inferior LV wall motion is hypokinetic. Mid inferoseptal LV wa ll motion is hypokinetic. Mid anteroseptal LV wall motion is hypokinetic. Apical inferior LV wa ll motion is hypokinetic. Apical septum LV wall motion is hypokinetic. The right ventricle is normal in size and function. Normal LA size by volume 22+/-6 ml/m2. The right atrium is normal in size. Aortic valve is trileaflet and is mildly thickened. There is mild aortic regurgitation. There is no evidence of aortic stenosis. Mild mitral annular calcification present. Moderate mitral regurgitation is present. Mild tricuspid regurgitation present. There is mild pulmonary hypertension. The right ventricular systolic pressure, as measured by Doppler, is 44.74mmHg. Trace/mild (physiologic) pulmonic regurgitation. The aortic root size is normal. Normal inferior vena cava with normal inspiratory collapse consistent with estimated right atrial pre ssure of 5 mmHg. There is no pericardial effusion. CONCLUSIONS -------- 1. Sinus rhythm. 2. This was a technically adequate study. 3. The left ventricular size is normal. 4. Left ventricular wall thickness is normal. 5. Overall left ventricular systolic function is mild-moderately impaired with, an EF between 40 - 45 %. 6. Mid lateral LV wall motion is hypokinetic. 7. Mid inferior LV wall motion is hypokinetic. 8. Mid inferoseptal LV wall motion is hypokinetic. 9. Mid anteroseptal LV wall motion is hypokinetic. 10. Apical inferior LV wall motion is hypokinetic. 11. Apical septum LV wall motion is hypokinetic. 12. Normal LA size by volume 22+/-6 ml/m2. 13. Aortic valve is trileaflet and is mildly thickened. 14. There is mild aortic regurgitation. 15. Mild mitral annular calcification present. 16. Moderate mitral regurgitation is present. 17. Mild tricuspid regurgitation present. 18. There is mild pulmonary hypertension. 19. Trace/mild (physiologic) pulmonic regurgitation. 20. The aortic root size is normal. 21. There is no pericardial effusion. DUMPLING MACHINE OPERATOR: John Price RDCS
[2018-03-07] MEDS ORDERED: INSPUCOR MISCELLANE PRN (12:29)
[2018-03-07] MEDS ORDERED: INSULIN ASPART 100 UNIT/ML 1 ML 10 ML VIAL SQ PRN ×2 (12:29→17:16)
[2018-03-07] MEDS ORDERED: INSULIN PUMP BASAL RATES 1 EACH MISC MISCELLANE PRN (12:29)
[2018-03-07] MEDS ORDERED: INSULIN PUMP ACTIVE INSULIN 1 EACH MISC MISCELLANE PRN (12:29)
[2018-03-07] MEDS ORDERED: INSULIN PUMP TARGET GLUCOSE 1 EACH MISC MISCELLANE PRN (12:29)
[2018-03-07] MEDS: INSULIN PUMP MEAL BOLUS 1 UNIT MISC MISCELLANE SCH ×3 (12:54→22:27)
--- NOTE | 2018-03-07 13:05 | P.HPIM ---
History of Present Illness H&P Date: 03/07/18 Chief Complaint: chest pain This is a 57-year-old pleasant lady patient of Dr. Bai, nephrology , dr Boyce cardiology. She has underlying history of CAD, with CABG 1 vessel disease 2001, with SEQUEIRA to the LAD, diabetes mellitus type 1 since age 5 , hypertensive cardiovascular disease, hypothyroidism, previous history of smoking, end-stage renal disease cessation from hemodialysis secondary to the new renal transplant July 2016. Last cardiac cath was in December 2015 which shows chronically occluded LAD in the mid segment as well as PDA, diffuse severe disease in all coronary arteries, patent SEQUEIRA to the LAD, PDA stent occlusion was chronic. She comes into the emergency room secondary to chest pain with chest pain with exertion, she is been having chest discomfort for the past 2 weeks, she has chest pain on exertion, she was in the attic last night, she developed again symptoms for which she did not have any relief with the nitroglycerin. She has been taking nitro on a daily basis and has consumed at least 25,at 3 bottles of sublingual nitroglycerin for the past 2 weeks. She presents now to the emergency room secondary to unstable angina In the emergency room she was evaluated, EKG shows normal sinus rhythm with possible left atrial enlargement, nonspecific ST-T wave changes chest x-ray shows normal chest there is clearing of pulmonary edema compared to old exam November 2016. Her troponin was 0.0 714 and 3, 0.134 this morning. Started on IV heparin, IV nitroglycerin with consultation to cardiology and nephrology Review of Systems Constitutional: Reports as per HPI, Reports chronic headaches, Denies anorexia, Denies chills, Denies chronic pain, Denies daytime sleepiness, Denies fatigue, Denies fever, Denies lethargy, Denies malaise, Denies night sweats, Denies poor appetite, Denies sweats, Denies weakness, Denies weight gain, Denies weight loss Ears, nose, mouth and throat: Reports as per HPI Cardiovascular: Reports as per HPI, Reports chest pain, Reports decreased exercise tolerance, Reports dyspnea on exertion, Reports high blood pressure Respiratory: Reports as per HPI, Denies congestion, Denies cough, Denies cough with sputum, Denies dyspnea, Denies excessive sputum, Denies hemoptysis, Denies home oxygen, Denies pain, Denies pain on inspiration, Denies pleurisy, Denies respiratory infections, Denies sleep apnea, Denies snoring, Denies wheezing Gastrointestinal: Reports as per HPI, Reports nausea, Denies abdominal pain, Denies belching, Denies bloating, Denies BRBPR, Denies change in bowel habits, Denies coffee ground emesis, Denies constipation, Denies diarrhea, Denies dyspepsia, Denies early satiety, Denies excessive gas, Denies heartburn, Denies hematemesis, Denies hematochezia, Denies indigestion, Denies jaundice, Denies lactose intolerance, Denies loss of appetite, Denies melena, Denies vomiting Menstruation: Reports as per HPI, Denies amenorrhea, Denies amenorrhea on BC, Denies currently menstrual, Denies cycle < 21 days, Denies cycle > 35 days, Denies cycle variable, Denies menses 1-7 days, Denies menses 8 or > days, Denies menses variable, Denies period heavy, Denies period light, Denies period normal, Denies period spotting, Denies post hysterectomy, Denies postmenopausal , Denies premenarcheal Musculoskeletal: Reports as per HPI, Denies arm numbness/tingling, Denies atrophy, Denies fractures, Denies frequent falls, Denies gait dysfunction, Denies hot joints, Denies leg numbness/tingling, Denies limitation of motion, Denies loss of height, Denies low back pain, Denies morning stiffness, Denies muscle cramps, Denies muscle weakness, Denies myalgias, Denies neck pain, Denies neck stiffness, Denies prior amputations, Denies redness of joints, Denies shooting arm pain, Denies shooting leg pain Integumentary: Reports as per HPI Neurological: Reports as per HPI, Denies aphasia, Denies ataxia, Denies balance difficulties, Denies burning pain, Denies change in mentation, Denies change in smell/taste, Denies change in speech, Denies confusion, Denies convulsions, Denies double vision, Denies gait dysfunction, Denies head injury, Denies headaches, Denies hearing difficulties, Denies lack of coordination, Denies loss of vision, Denies memory loss, Denies migraines, Denies motor disturbance, Denies numbness, Denies paralysis, Denies paresthesias, Denies seizures, Denies sensory deficit, Denies spasticity, Denies syncope, Denies tic, Denies tingling , Denies transient paralysis, Denies tremors, Denies vertigo, Denies weakness, Denies visual changes Psychiatric: Reports as per HPI, Denies anhedonia, Denies anxiety, Denies anxiety attacks, Denies change in appetite, Denies change in libido, Denies change in sleep habits, Denies confusion, Denies depression, Denies difficulty concentrating, Denies disorientation, Denies hallucinations, Denies hopelessness , Denies hypersomnia, Denies insomnia, Denies irritability, Denies memory loss, Denies mood swings, Denies paranoia, Denies sadness/tearfulness, Denies sleep disturbances, Denies suicidal ideation Endocrine: Reports as per HPI, Reports fatigue, Reports high blood sugars, Reports recent glucocorticoid use, Denies cold intolerance, Denies deepening of the voice, Denies excessive sweating, Denies excessive thirst, Denies flushing, Denies heat intolerance, Denies increase in ring/shoe/hat size, Denies low blood sugars, Denies nocturia, Denies palpitations, Denies polydipsia, Denies polyphagia, Denies polyuria, Denies proptosis, Denies thyroid mass, Denies weight change Hematologic/Lymphatic: Reports as per HPI, Denies easy bleeding, Denies easy bruising, Denies lymphadenopathy, Denies lymphedema, Denies thrombophilia Allergic/Immunologic: Reports as per HPI, Denies allergic rhinitis, Denies anaphylaxis, Denies angioedema, Denies gluten intolerance, Denies persistent infections, Denies seasonal allergies, Denies urticaria, Denies wheezing Past Medical History Past Medical History: Coronary Artery Disease (CAD), Chest Pain / Angina, Diabetes Mellitus, Hyperlipidemia, Hypertension, Myocardial Infarction ([place]), Thyroid Disorder Additional Past Medical History / Comment(s): Diabetes mellitus type 1 SINCE AGE 5 YRS. end-stage renal disease on hemodialysis Saturday. patient is no longer getting hemodialysis patient got kidney trans injan of 2016 Last Myocardial Infarction Date:: 2016 History of Any Multi-Drug Resistant Organisms: CRE Date of last positivie culture/infection: 01/10/16 *CRE-[facility] Serratia confirmed by [facility] Source:: blood see lab scanned report Past Surgical History: Appendectomy, Section, Coronary Bypass/CABG, Heart Catheterization, Hysterectomy, Orthopedic Surgery Additional Past Surgical History / Comment(s): Balloon angioplasty 2011 right main with 90% occlusion prior. Multiple heart caTHS. CABG 1 vessel disease 2001. SEQUEIRA to the LAD. BILATERAL CATARACTS REMOVED/IMPLANTS. Past Anesthesia/Blood Transfusion Reactions: Postoperative Nausea & Vomiting ( PONV) Past Psychological History: Depression Smoking Status: Never smoker Past Alcohol Use History: Rare Additional Past Alcohol Use History / Comment(s): SMOKING: QUIT IN 1983, ONLY FOR 1 YR, PPD: LESS THAN HALF. Past Drug Use History: None Reported - Past Family History Mother Family Medical History: Diabetes Mellitus Additional Family Medical History / Comment(s): Mother is alive at age 76 with history of diabetes mellitus type 2 diet-controlled, hypertension, irritable bowel syndrome Father Family Medical History: AFIB, Diabetes Mellitus, Hypertension Additional Family Medical History / Comment(s): Father is alive at age 77 with history of HIV fibrillation status post cardioversion and ablation, alcoholism, diabetes mellitus type 2, hypertension, obstructive sleep apnea with CPAP. Sister(s) Family Medical History: No Reported History Daughter(s) Family Medical History: No Reported History Additional Family Medical History / Comment(s): One daughter age 31 was cerebral palsy Son(s) Family Medical History: No Reported History Additional Family Medical History / Comment(s): One son age 29 with no major medical problems. Medications and Allergies Home Medications Medication Instructions Recorded Confirmed Type Aspirin 81 mg PO DAILY 10/02/15 03/06/18 History Levothyroxine Sodium [Synthroid] 100 mcg PO QAM 10/02/15 03/06/18 History Sertraline HCl 100 mg PO HS 10/02/15 03/06/18 History ALPRAZolam [Xanax] 0.25 mg PO TID PRN #90 tab 12/12/15 03/06/18 Rx Isosorbide Mononitrate ER [Imdur] 60 mg PO QAM 01/02/16 03/06/18 History Nitroglycerin Sl Tabs [Nitrostat] 0.4 mg SL Q5M PRN 01/02/16 03/06/18 History Propylene Glycol/Peg 400/Pf 1 drop BOTH EYES BID 01/10/16 03/06/18 History [Systane 0.3-0.4% Eye Drops] Atorvastatin [Lipitor] 20 mg PO HS 03/06/18 03/06/18 History Furosemide [Lasix] 20 mg PO HS 03/06/18 03/06/18 History Furosemide [Lasix] 40 mg PO DAILY 03/06/18 03/06/18 History INSULIN LISPRO (For Pump) [humaLOG 0.01 units SQ-PUMP CONTINUOUS 03/06/18 History (For Pump)] Metoprolol Succinate (ER) [Toprol 100 mg PO BID 03/06/18 03/06/18 History Xl] Pantoprazole Sodium [Protonix] 40 mg PO DAILY 03/06/18 03/06/18 History Tacrolimus [Prograf] 2 mg PO BID 03/06/18 03/06/18 History azaTHIOprine [Imuran] 100 mg PO DAILY 03/06/18 03/06/18 History predniSONE 5 mg PO DAILY 03/06/18 03/06/18 History Allergies Allergy/AdvReac Type Severity Reaction Status Date / Time mycophenolate mofetil AdvReac Oral Ulcers Verified 03/06/18 23:38 [From CellCept] nifedipine [From Procardia] AdvReac Rapid Verified 03/06/18 23:38 Heart Rate Physical Exam Vitals: Vital Signs Temp Pulse Pulse Resp BP BP Pulse Ox 03/07/18 08:00 96.7 F L 70 16 144/65 99 03/07/18 04:43 136/72 03/07/18 04:00 98.2 F 66 18 170/90 98 03/07/18 03:17 97.8 F 68 18 158/72 98 03/07/18 02:21 98.8 F 88 18 170/90 99 03/07/18 01:54 68 18 128/58 96 03/07/18 01:43 68 18 123/58 99 03/07/18 01:29 70 18 160/73 98 03/07/18 01:13 70 18 191/90 96 03/07/18 00:11 60 18 179/77 99 03/07/18 00:04 67 18 200/84 99 03/06/18 23:17 97.9 F 68 18 221/87 100 Intake and Output 03/06/18 03/07/18 03/07/18 22:59 06:59 14:59 Intake Total 13.825 214.284 Output Total 300 700 Balance -286.175 -485.716 Intake: Intake, IV Titration 13.825 94.284 Amount Heparin Sod,Pork in 0.45% 94.284 NaCl 25,000 unit In 0.45 % NaCl 1 500ml.bag @ 12 UNITS/KG/HR 14.58 mls/hr IV .Q24H ALFREDO Rx#: [id number] Nitroglycerin-D5w Pmx 50 13.825 mg In Dextrose/Water 1 250ml.bag @ 20 MCG/MIN 6 mls/hr IV .Q24H ONE Rx#: [id number] Oral 120 Output: Urine 300 700 Other: Weight 63.1 kg - Constitutional General appearance: average body habitus, cooperative, no acute distress - EENT Eyes: anicteric sclerae, EOMI, photophobia ENT: NA/AT, normal oropharynx - Neck Neck: normal ROM - Respiratory Respiratory: bilateral: CTA, negative: diminished, dullness, rales - Cardiovascular Rhythm: regular Heart sounds: normal: S1, S2 Abnormal Heart Sounds: no systolic murmur, no diastolic murmur, no rub, no S3 Gallop, no S4 Gallop, no click, no other - Gastrointestinal General gastrointestinal: normal bowel sounds, soft - Integumentary Integumentary: decreased turgor, normal - Neurologic Neurologic: CNII-XII intact - Musculoskeletal Musculoskeletal: gait normal, strength equal bilaterally - Psychiatric Psychiatric: A&O x's 3, appropriate affect, intact judgment & insight Results CBC & Chem 7: 03/06/18 23:40 03/06/18 23:40 Labs: Abnormal Lab Results - Last 24 Hours (Table) 03/06/18 03/06/18 03/06/18 Range/Units 23:40 23:40 23:40 RDW 16.5 H (11.5-15.5) % Lymphocytes # 0.3 L (1.0-4.8) k/uL APTT (22.0-30.0) sec Potassium 5.2 H (3.5-5.1) mmol/L BUN 43 H (7-17) mg/dL Creatinine 1.90 H (0.52-1.04) mg/dL Glucose 356 H (74-99) mg/dL POC Glucose (mg/dL) (75-99) mg/dL Troponin I 0.074 H* (0.000-0.034) ng/mL Total Protein 6.1 L (6.3-8.2) g/dL 03/07/18 03/07/18 03/07/18 Range/Units 01:50 06:30 06:33 RDW (11.5-15.5) % Lymphocytes # (1.0-4.8) k/uL APTT 86.7 H (22.0-30.0) sec Potassium (3.5-5.1) mmol/L BUN (7-17) mg/dL Creatinine (0.52-1.04) mg/dL Glucose (74-99) mg/dL POC Glucose (mg/dL) 356 H 275 H (75-99) mg/dL Troponin I (0.000-0.034) ng/mL Total Protein (6.3-8.2) g/dL 03/07/18 03/07/18 03/07/18 Range/Units 06:33 10:29 10:30 RDW (11.5-15.5) % Lymphocytes # (1.0-4.8) k/uL APTT (22.0-30.0) sec Potassium (3.5-5.1) mmol/L BUN (7-17) mg/dL Creatinine (0.52-1.04) mg/dL Glucose (74-99) mg/dL POC Glucose (mg/dL) 336 H 328 H (75-99) mg/dL Troponin I 0.134 H* (0.000-0.034) ng/mL Total Protein (6.3-8.2) g/dL Laboratory Results WBC 4.8 k/uL (3.8-10.6) 03/06/18 23:40 RBC 3.85 m/uL (3.80-5.40) 03/06/18 23:40 Hgb 11.8 gm/dL (11.4-16.0) 03/06/18 23:40 Hct 36.0 % (34.0-46.0) 03/06/18 23:40 MCV 93.5 fL (80.0-100.0) 03/06/18 23:40 MCH 30.6 pg (25.0-35.0) 03/06/18 23:40 MCHC 32.7 g/dL (31.0-37.0) 03/06/18 23:40 RDW 16.5 % (11.5-15.5) H 03/06/18 23:40 Plt Count 225 k/uL (150-450) 03/06/18 23:40 Neutrophils % 81 % 03/06/18 23:40 Lymphocytes % 7 % 03/06/18 23:40 Monocytes % 6 % 03/06/18 23:40 Eosinophils % 3 % 03/06/18 23:40 Basophils % 0 % 03/06/18 23:40 Neutrophils # 3.9 k/uL (1.3-7.7) 03/06/18 23:40 Lymphocytes # 0.3 k/uL (1.0-4.8) L 03/06/18 23:40 Monocytes # 0.3 k/uL (0-1.0) 03/06/18 23:40 Eosinophils # 0.1 k/uL (0-0.7) 03/06/18 23:40 Basophils # 0.0 k/uL (0-0.2) 03/06/18 23:40 Anisocytosis Slight 03/06/18 23:40 PT 10.2 sec (9.0-12.0) 03/06/18 23:40 INR 1.0 (<1.2) 03/06/18 23:40 APTT 86.7 sec (22.0-30.0) H 03/07/18 06:33 Sodium 137 mmol/L (137-145) 03/06/18 23:40 Potassium 5.2 mmol/L (3.5-5.1) H 03/06/18 23:40 Chloride 100 mmol/L (98-107) 03/06/18 23:40 Carbon Dioxide 29 mmol/L (22-30) 03/06/18 23:40 Anion Gap 8 mmol/L 03/06/18 23:40 BUN 43 mg/dL (7-17) H 03/06/18 23:40 Creatinine 1.90 mg/dL (0.52-1.04) H 03/06/18 23:40 Est GFR (CKD-EPI)AfAm 33 (>60 ml/min/1.73 sqM) 03/06/18 23:40 Est GFR (CKD-EPI)NonAf 29 (>60 ml/min/1.73 sqM) 03/06/18 23:40 Glucose 356 mg/dL (74-99) H 03/06/18 23:40 POC Glucose (mg/dL) 306 mg/dL (75-99) H 03/07/18 11:41 POC Glu Supply Analyst ID Shelli Collins 03/07/18 11:41 Calcium 9.2 mg/dL (8.4-10.2) 03/06/18 23:40 Magnesium 2.1 mg/dL (1.6-2.3) 03/06/18 23:40 Total Bilirubin 0.4 mg/dL (0.2-1.3) 03/06/18 23:40 AST 22 U/L (14-36) 03/06/18 23:40 ALT 29 U/L (9-52) 03/06/18 23:40 Alkaline Phosphatase 126 U/L (38-126) 03/06/18 23:40 Total Creatine Kinase 43 U/L (30-135) 03/07/18 11:47 CK-MB (CK-2) 1.4 ng/mL (0.0-2.4) 03/07/18 06:33 CK-MB (CK-2) Rel Index 3.3 03/07/18 06:33 Troponin I 0.134 ng/mL (0.000-0.034) H* 03/07/18 06:33 Total Protein 6.1 g/dL (6.3-8.2) L 03/06/18 23:40 Albumin 3.7 g/dL (3.5-5.0) 03/06/18 23:40 Thrombosis Risk Factor Assmnt - DVT/VTE Prophylaxis DVT/VTE Prophylaxis: Pharmacologic Prophylaxis ordered - Choose All That Apply Each Factor Represents 1 point: Age 41-60 years, Obesity (BMI >25) Other Risk Factors: No Thrombosis Risk Factor Assessment Total Risk Factor Score: 2 Thrombosis Risk Factor Assessment Level: Low Risk Assessment and Plan Plan: 1. NON STEMIwith Unstable angina with known history of severe coronary artery disease with known history of CABG with patent SEQUEIRA to the LAD , elevated troponins, cardiology is on consult, she also will be seen consultation by nephrology secondary to the elevated creatinine with a pre-existing left renal transplant. Patient is IV heparin, and IV nitroglycerin aspirin 325 mg daily. With extensive vessel calcifications, cardiac stenting was not contemplated at this time however patient needs a cardiac cath. Consult with nephrology secondary to renal transplant with elevated creatinine and contrast nephropathy is expected. Patient is high risk, we will discuss with cardiology options for her treatment, she is overutilizing her sublingual nitrates secondary to her symptoms. Patient might need to be transferred to [facility] were her cardiology team can give her a second opinion. We will await further recommendations from cardiology in a facility 2. CK D stage III with presence of left renal transplant December consult nephrology, she has a transplant team at [facility] 3. Diabetes mellitus type 1 with multiple complications, on an insulin pump uncontrolled with hemoglobin to be done currently pending 4. Known CAD with prior CABG in the LAD requiring SEQUEIRA one-vessel bypass graft 2001 along with balloon angioplasty right main in 2010 status post heart catheterization January [address] Riley. Continue aspirin 81 mg daily, Lipitor 40 mg at bedtime, Imdur 60 mg daily, Lopressor 100 mg twice daily, IV nitro 5. Hypertension, hypertensive cardiovascular disease. Lasix 40 mg a.m. 20 mg p.m. Lopressor 100 mg twice daily. 6. Renal transplant history December, on prednisone 5 mg daily, and Imuran 100 mg daily, tacrolimus 2 mg twice a day 6. Osteoporosis with metabolic bone disease. 7. Hypothyroidism. Continue Synthroid 100 g daily 8. Obstructive sleep apnea for which patient is on CPAP device 9. Secondary hyperphosphatemia. Continue Renvela 800 mg 3 times daily. 10. Depression, recurrent, generalized anxiety disorder. Continue Xanax 0.25 mg 3 times daily as needed and Zoloft 100 mg daily. 11. Anemia of chronic disease. Patient started on Neupogen Saturday.
[2018-03-07 13:12] LABS: Creatine Kinase MB 1.6 ng/mL (0.0-2.4)
[2018-03-07 13:14] LABS: Troponin I 0.106 ng/mL (0.000-0.034)
--- NOTE | 2018-03-07 15:49 | US ---
EXAMINATION TYPE: US carotid duplex BILAT DATE OF EXAM: 03/07/2018 COMPARISON: NONE CLINICAL HISTORY: 57-year-old female LVF. diabetic, renal transplant, h/o multiple MO's and CABG, no stroke TECHNIQUE: Carotid duplex ultrasound examination. Indirect Doppler criteria was utilized. EXAM MEASUREMENTS: RIGHT: Peak Systolic Velocity (PSV) cm/sec ----- Right CCA: 63.3 ----- Right ICA: 101.5 ----- Right ECA: 108.2 ICA/CCA ratio: 1.6 RIGHT: End Diastole cm/sec ----- Right CCA: 14.5 ----- Right ICA: 26.5 ----- Right ECA: 17.6 LEFT: Peak Systolic Velocity (PSV) cm/sec ----- Left CCA: 78.2 ----- Left ICA: 88.3 ----- Left ECA: 68.6 ICA/CCA ratio: 1.1 LEFT: End Diastole cm/sec ----- Left CCA: 14.5 ----- Left ICA: 33.3 ----- Left ECA: 10.1 VERTEBRALS (direction of flow): Right Vertebral: Antegrade Left Vertebral: Antegrade Rhythm: Normal Mild homogeneous plaque with no stenosis seen *Patient snored throughout exam, can see on some waveform images. IMPRESSION: No hemodynamically significant stenosis appreciated in either internal carotid artery. Criteria for Assigning % of Stenosis / Diameter reduction (Estimation based on the indirect measurements of the internal carotid artery velocities (ICA PSV). 1. Normal (no stenosis)=ICA PSV < 125 cm/s: ratio < 2.0: ICA EDV<40 cm/s. 2. Less than 50% stenosis=ICA PSV < 125 cm/s: ratio < 2.0: ICA EDV<40 cm/s. 3. 50 to 69% stenosis=ICA PSV of 125 to 230 cm/s: ration 2.0 ? 4.0: ICA EDV 40-100 cm/s. 4. Greater than 70% stenosis to near occlusion= ICA PSV > 230 cm/s: ratio > 4.0: ICA EDV > 100 cm/s. 5. Near occlusion= ICA PSV velocities may be low or undetectable: variable ratio and ICA EDV. 6. Total occlusion=unable to detect flow.
[2018-03-07 16:57] LABS: Glucose,Whole Blood 185 mg/dL (75-99)
[2018-03-07 19:43] LABS: Hemoglobin A1C 8.2 % (4.0-6.0)
[2018-03-07] MEDS: ATORVASTATIN 20 MG TAB PO SCH (20:10)
[2018-03-07] MEDS: SERTRALINE 100 MG TAB PO SCH (20:10)
[2018-03-07] MEDS: FUROSEMIDE 20 MG TAB PO SCH (20:10)
[2018-03-07 20:55] LABS: Glucose,Whole Blood 214 mg/dL (75-99)
[2018-03-08] MEDS: HEPARIN SOD,PORK IN 0.45% NACL 25,000 UNIT in 0.45% NACL 1 500ML.BAG IV SCH (04:14)
[2018-03-08] MEDS: NITROGLYCERIN-D5W PMX 50 MG in DEXTROSE/WATER 1 250ML.BAG IV SCH (04:14)
[2018-03-08 05:51] LABS: Glucose,Whole Blood 141 mg/dL (75-99)
[2018-03-08 06:20] LABS: Anisocytosis Slight; Basophils % (A) 1 %; Eosinophils # (A) 0.1 k/uL (0-0.7); Eosinophils % (A) 3 %; HCT 33.3 % (34.0-46.0); HGB 10.5 gm/dL (11.4-16.0); Lymphocytes # (A) 0.4 k/uL (1.0-4.8); Lymphocytes % (A) 9 %; MCH 29.8 pg (25.0-35.0); MCHC 31.4 g/dL (31.0-37.0); MCV 94.9 fL (80.0-100.0); Mean Platelet Volume 7.9; Monocytes # (A) 0.3 k/uL (0-1.0); Monocytes % (A) 6 %; Neutrophils # (A) 3.4 k/uL (1.3-7.7); Neutrophils % (A) 79 %; Platelet Count 217 k/uL (150-450); RBC 3.51 m/uL (3.80-5.40); RDW 16.6 % (11.5-15.5); WBC 4.4 k/uL (3.8-10.6)
[2018-03-08] MEDS ORDERED: MORPHINE ORAL SOLN 10 MG/5 ML CUP PO PRN (06:27)
[2018-03-08] MEDS: PANTOPRAZOLE 40 MG TABLET PO SCH (06:27)
[2018-03-08] MEDS: LEVOTHYROXINE 100 MCG TAB PO SCH (06:27)
[2018-03-08] MEDS: INSULIN PUMP MEAL BOLUS 1 UNIT MISC MISCELLANE SCH ×4 (06:30→21:29)
[2018-03-08 06:38] LABS: Cholesterol 161 mg/dL (<200); HDL Cholesterol 84 mg/dL (40-60); LDL Cholesterol,Calculated 62 mg/dL (0-99); Triglycerides 73 mg/dL (<150)
--- NOTE | 2018-03-08 07:49 | P.NPCON ---
History of Present Illness - Reason for Consult chronic renal failure - History of Present Illness Reason for consultation: Chronic kidney disease and renal transplant management History of present illness: Patient is a 57-year-old female seen in renal consultation for renal transplant management. Patient received a living related renal allograft in 2016 at [facility]. Etiology for kidney diseases diabetic kidney disease. She is currently maintained on Prograf 2 mg twice daily, Imuran 100 mg daily and prednisone 5 mg daily. Patient has history of coronary artery disease and has undergone CABG in 2001 as well as a cardiac catheterization in December 2015 which did reveal coronary vessel occlusions. Her ejection fraction is 40-45% with moderate mitral regurgitation. Patient presented to the hospital due to chest pain which started about 2 weeks ago. Patient states she was helping her son packed and developed sudden onset of chest pain which she describes as stabbing as well as pressure with radiation down to her arm and scapula. She's been nauseous. No vomiting or diarrhea. She is currently maintained on heparin drip as well as nitro drip. Patient states she did take Nitrostat home for the last couple of weeks with no significant relief in symptoms. Hemodynamically stable. Vital signs are stable. General: The patient appeared well nourished and normally developed. HEENT: Head exam is unremarkable. Neck is without jugular venous distension. LUNGS: Lungs are clear to auscultation and percussion. Breath sounds decreased. HEART: Rate and Rhythm are regular. First and second heart sounds normal. No murmurs, rubs or gallops. ABDOMEN: Abdominal exam reveals normal bowel sounds. Non-tender and non- distended. No evidence of peritonitis. EXTREMITITES: No clubbing, cyanosis, or edema. Past Medical History Past Medical History: Coronary Artery Disease (CAD), Chest Pain / Angina, Diabetes Mellitus, Hyperlipidemia, Hypertension, Myocardial Infarction (DC), Thyroid Disorder Additional Past Medical History / Comment(s): Diabetes mellitus type 1 SINCE AGE 5 YRS. end-stage renal disease on hemodialysis Saturday. patient is no longer getting hemodialysis patient got kidney trans injan of 2016 Last Myocardial Infarction Date:: 2016 History of Any Multi-Drug Resistant Organisms: CRE Date of last positivie culture/infection: 01/10/16 *CRE-[facility] confirmed by [facility] Source:: blood see lab scanned report Past Surgical History: Appendectomy, Section, Coronary Bypass/CABG, Heart Catheterization, Hysterectomy, Orthopedic Surgery Additional Past Surgical History / Comment(s): Balloon angioplasty 2011 right main with 90% occlusion prior. Multiple heart caTHS. CABG 1 vessel disease 2001. SEQUEIRA to the LAD. BILATERAL CATARACTS REMOVED/IMPLANTS. Past Anesthesia/Blood Transfusion Reactions: Postoperative Nausea & Vomiting ( PONV) Past Psychological History: Depression Smoking Status: Never smoker Past Alcohol Use History: Rare Additional Past Alcohol Use History / Comment(s): SMOKING: QUIT IN 1983, ONLY FOR 1 YR, PPD: LESS THAN HALF. Past Drug Use History: None Reported - Past Family History Mother Family Medical History: Diabetes Mellitus Additional Family Medical History / Comment(s): Mother is alive at age 76 with history of diabetes mellitus type 2 diet-controlled, hypertension, irritable bowel syndrome Father Family Medical History: AFIB, Diabetes Mellitus, Hypertension Additional Family Medical History / Comment(s): Father is alive at age 77 with history of HIV fibrillation status post cardioversion and ablation, alcoholism, diabetes mellitus type 2, hypertension, obstructive sleep apnea with CPAP. Sister(s) Family Medical History: No Reported History Daughter(s) Family Medical History: No Reported History Additional Family Medical History / Comment(s): One daughter age 31 was cerebral palsy Son(s) Family Medical History: No Reported History Additional Family Medical History / Comment(s): One son age 29 with no major medical problems. Medications and Allergies Home Medications Medication Instructions Recorded Confirmed Type Aspirin 81 mg PO DAILY 10/02/15 03/06/18 History Levothyroxine Sodium [Synthroid] 100 mcg PO QAM 10/02/15 03/06/18 History Sertraline HCl 100 mg PO HS 10/02/15 03/06/18 History ALPRAZolam [Xanax] 0.25 mg PO TID PRN #90 tab 12/12/15 03/06/18 Rx Isosorbide Mononitrate ER [Imdur] 60 mg PO QAM 01/02/16 03/06/18 History Nitroglycerin Sl Tabs [Nitrostat] 0.4 mg SL Q5M PRN 01/02/16 03/06/18 History Propylene Glycol/Peg 400/Pf 1 drop BOTH EYES BID 01/10/16 03/06/18 History [Systane 0.3-0.4% Eye Drops] Atorvastatin [Lipitor] 20 mg PO HS 03/06/18 03/06/18 History Furosemide [Lasix] 20 mg PO HS 03/06/18 03/06/18 History Furosemide [Lasix] 40 mg PO DAILY 03/06/18 03/06/18 History INSULIN LISPRO (For Pump) [humaLOG 0.01 units SQ-PUMP CONTINUOUS 03/06/18 History (For Pump)] Metoprolol Succinate (ER) [Toprol 100 mg PO BID 03/06/18 03/06/18 History Xl] Pantoprazole Sodium [Protonix] 40 mg PO DAILY 03/06/18 03/06/18 History Tacrolimus [Prograf] 2 mg PO BID 03/06/18 03/06/18 History azaTHIOprine [Imuran] 100 mg PO DAILY 03/06/18 03/06/18 History predniSONE 5 mg PO DAILY 03/06/18 03/06/18 History Allergies Allergy/AdvReac Type Severity Reaction Status Date / Time mycophenolate mofetil AdvReac Oral Ulcers Verified 03/06/18 23:38 [From CellCept] nifedipine [From Procardia] AdvReac Rapid Verified 03/06/18 23:38 Heart Rate NSAIDS (Non-Steroidal AdvReac Chest Pain Verified 03/07/18 18:32 Anti-Inflamma Physical Exam Vitals: Vital Signs Temp Pulse Resp BP Pulse Ox 03/08/18 04:00 97.2 F L 59 L 15 164/72 98 03/08/18 00:00 63 16 139/65 96 03/07/18 20:00 98.8 F 64 15 152/60 95 03/07/18 15:43 77 18 03/07/18 12:00 97.1 F L 77 16 138/67 99 03/07/18 08:00 96.7 F L 70 16 144/65 99 Intake and Output 03/07/18 03/08/18 03/08/18 22:59 06:59 14:59 Intake Total 346.515 212.827 Output Total 600 800 Balance -253.485 -587.173 Intake: Intake, IV Titration 106.515 212.827 Amount Heparin Sod,Pork in 0.45% 106.515 212.827 NaCl 25,000 unit In 0.45 % NaCl 1 500ml.bag @ 12 UNITS/KG/HR 14.58 mls/hr IV .Q24H [facility] Rx#: [id number] Oral 240 Output: Urine 600 800 Other: Voiding Method Toilet Toilet Weight 63.1 kg Results - Lab Results Most recent lab results Calcium 9.2 mg/dL (8.4-10.2) 03/06/18 23:40 Magnesium 2.1 mg/dL (1.6-2.3) 03/06/18 23:40 03/08/18 06:00 03/06/18 23:40 Assessment and Plan Plan: Assessment: 1. Status post living related renal allograft in 2016 secondary to diabetic kidney disease. 2. Chronic kidney disease stage IV secondary to calcineurin inhibitor use in a solitary kidney. Baseline creatinine near 2. 3. History of coronary artery disease status post CABG in 2001 and cardiac catheterization in December 2015. 4. Chest pain with concern for acute coronary syndrome. Cardiology following. 5. Systolic CHF with ejection fraction of 40-45% with moderate mitral regurgitation. 6. Diabetes mellitus. Plan: Continue with current antirejection medications. Avoid nephrotoxic agents and hypotensive episodes. Cleared for cardiac catheterization from nephrology standpoint. I discussed with the patient the risk of developing worsening renal failure from contrast- induced nephropathy. Patient understands and is agreeable to proceed. I would hydrate her with normal saline at 70 mL an hour to be started 10 hours prior to the procedure and to be continued for another 10 hours post procedure. I will hold diuretics the night before the procedure. Continue to monitor renal function and urine output. Thank you for the consultation. I will continue to follow the patient with you during her hospital stay.
[2018-03-08 08:31] LABS: Appearance,Urine Cloudy (Clear); Bacteria,Urine Rare /hpf; Bilirubin,Urine Negative (Negative); Blood,Urine Trace (Negative); Color,Urine Light Yellow; Glucose,Urine (UA) Negative (Negative); Ketones,Urine Negative (Negative); Leukocyte Esterase,Urine Large (Negative); Nitrite,Urine Negative (Negative); PH, Urine 5.5 (5.0-8.0); Protein,Urine Negative (Negative); RBC,Urine 3 /hpf (0-5); Specific Gravity,Urine 1.007 (1.001-1.035); Squamous Epithelial Cell,Urine <1 /hpf (0-4); Urobilinogen,Urine <2.0 mg/dL (<2.0); WBC,Urine >182 /hpf (0-5)
[2018-03-08] MEDS: ASPIRIN 325 MG TAB PO SCH (08:36)
[2018-03-08] MEDS: TACROLIMUS 1 MG CAP PO SCH ×2 (08:36→20:09)
[2018-03-08] MEDS: METOPROLOL SUCCINATE (ER) 100 MG TAB.ER.24H PO SCH ×2 (08:36→20:08)
[2018-03-08] MEDS: ISOSORBIDE MONONITRATE ER 60 MG TAB.ER.24H PO SCH (08:36)
[2018-03-08] MEDS: predniSONE 5 MG TAB PO SCH (08:36)
[2018-03-08] MEDS: FUROSEMIDE 40 MG TAB PO SCH (08:37)
[2018-03-08] MEDS: ARTIFICIAL TEARS-HYPROMELLOSE DROPS 15 ML BTL BOTH EYES SCH ×2 (08:37→20:08)
[2018-03-08] MEDS: azaTHIOprine 50 MG TAB PO SCH (08:37)
[2018-03-08] MEDS: cefTRIAXone IN SWFI 1,000 MG/10 ML SYRINGE IVP SCH (08:41)
[2018-03-08 11:14] LABS: Glucose,Whole Blood 121 mg/dL (75-99)
[2018-03-08] MEDS: SODIUM CHLORIDE 0.9% 1,000 ML IV SCH (12:55)
[2018-03-08 14:00] LABS: Calcium 9.2 mg/dL (8.4-10.2); Potassium 4.4 mmol/L (3.5-5.1)
--- NOTE | 2018-03-08 15:21 | P.PN ---
Subjective Progress Note Date: 03/08/18 This is a 57-year-old pleasant lady patient of Dr. Bai, nephrology , dr Boyce cardiology. She has underlying history of CAD, with CABG 1 vessel disease 2001, with SEQUEIRA to the LAD, diabetes mellitus type 1 since age 5 , hypertensive cardiovascular disease, hypothyroidism, previous history of smoking, end-stage renal disease cessation from hemodialysis secondary to the new renal transplant July 2016. Last cardiac cath was in December 2015 which shows chronically occluded LAD in the mid segment as well as PDA, diffuse severe disease in all coronary arteries, patent SEQUEIRA to the LAD, PDA stent occlusion was chronic. She comes into the emergency room secondary to chest pain with chest pain with exertion, she is been having chest discomfort for the past 2 weeks, she has chest pain on exertion, she was in the attic last night, she developed again symptoms for which she did not have any relief with the nitroglycerin. She has been taking nitro on a daily basis and has consumed at least 25,at 3 bottles of sublingual nitroglycerin for the past 2 weeks. She presents now to the emergency room secondary to unstable angina In the emergency room she was evaluated, EKG shows normal sinus rhythm with possible left atrial enlargement, nonspecific ST-T wave changes chest x-ray shows normal chest there is clearing of pulmonary edema compared to old exam November 2016. Her troponin was 0.0 714 and 3, 0.134 this morning. Started on IV heparin, IV nitroglycerin with consultation to cardiology and nephrology 03/08. Patient without any acute chest pain. Chest pain improved this morning with the help of morphine. Nephrology recommends IV hydration for improvement in creatinine with possible Cardiac artery cath tomorrow or Saturday. Patient denies any chest pain, shortness of breath, abdominal pain. She is on insulin pump would have to be transitioned to sliding scale if going for cardiac cath tomorrow. Objective - Vital Signs Vital signs: Vital Signs Temp 97.6 F 03/08/18 11:35 Pulse 59 L 03/08/18 11:35 Resp 18 03/08/18 11:35 BP 130/62 03/08/18 11:35 Pulse Ox 97 03/08/18 11:35 Intake & Output 03/07/18 03/08/18 03/08/18 18:59 06:59 18:59 Intake Total 560.799 212.827 600 Output Total 1300 800 300 Balance -739.201 -587.173 300 Weight 63.1 kg Intake: Intake, IV Titration 200.799 212.827 Amount Heparin Sod,Pork in 0.45% 200.799 212.827 NaCl 25,000 unit In 0.45 % NaCl 1 500ml.bag @ 12 UNITS/KG/HR 14.58 mls/hr IV .Q24H [facility] Rx#: [id number] Oral 360 600 Output: Urine 1300 800 300 Other: Voiding Method Toilet Toilet Toilet - Exam - Constitutional General appearance: average body habitus, cooperative, no acute distress - EENT Eyes: anicteric sclerae, EOMI, photophobia ENT: NA/AT, normal oropharynx - Neck Neck: normal ROM - Respiratory Respiratory: bilateral: CTA, negative: diminished, dullness, rales - Cardiovascular Rhythm: regular Heart sounds: normal: S1, S2 Abnormal Heart Sounds: no systolic murmur, no diastolic murmur, no rub, no S3 Gallop, no S4 Gallop, no click, no other - Gastrointestinal General gastrointestinal: normal bowel sounds, soft - Integumentary Integumentary: decreased turgor, normal - Neurologic Neurologic: CNII-XII intact - Musculoskeletal Musculoskeletal: gait normal, strength equal bilaterally - Psychiatric Psychiatric: A&O x's 3, appropriate affect, intact judgment & insight - Labs CBC & Chem 7: 03/08/18 06:00 03/08/18 06:00 Labs: Abnormal Lab Results - Last 24 Hours (Table) 03/07/18 03/07/18 03/07/18 Range/Units 11:47 16:34 20:54 RBC (3.80-5.40) m/uL Hgb (11.4-16.0) gm/dL Hct (34.0-46.0) % RDW (11.5-15.5) % Lymphocytes # (1.0-4.8) k/uL APTT (22.0-30.0) sec BUN (7-17) mg/dL Creatinine (0.52-1.04) mg/dL Glucose (74-99) mg/dL POC Glucose (mg/dL) 185 H 214 H (75-99) mg/dL Hemoglobin A1c 8.2 H (4.0-6.0) % HDL Cholesterol (40-60) mg/dL Urine Appearance (Clear) Urine Blood (Negative) Ur Leukocyte Esterase (Negative) Urine WBC (0-5) /hpf Urine WBC Clumps (None) /hpf Urine Bacteria (None) /hpf 03/07/18 03/08/18 03/08/18 Range/Units 22:39 05:50 06:00 RBC 3.51 L (3.80-5.40) m/uL Hgb 10.5 L (11.4-16.0) gm/dL Hct 33.3 L (34.0-46.0) % RDW 16.6 H (11.5-15.5) % Lymphocytes # 0.4 L (1.0-4.8) k/uL APTT 42.6 H (22.0-30.0) sec BUN (7-17) mg/dL Creatinine (0.52-1.04) mg/dL Glucose (74-99) mg/dL POC Glucose (mg/dL) 141 H (75-99) mg/dL Hemoglobin A1c (4.0-6.0) % HDL Cholesterol (40-60) mg/dL Urine Appearance (Clear) Urine Blood (Negative) Ur Leukocyte Esterase (Negative) Urine WBC (0-5) /hpf Urine WBC Clumps (None) /hpf Urine Bacteria (None) /hpf 03/08/18 03/08/18 03/08/18 Range/Units 06:00 06:00 06:00 RBC (3.80-5.40) m/uL Hgb (11.4-16.0) gm/dL Hct (34.0-46.0) % RDW (11.5-15.5) % Lymphocytes # (1.0-4.8) k/uL APTT 38.1 H (22.0-30.0) sec BUN 34 H (7-17) mg/dL Creatinine 1.72 H (0.52-1.04) mg/dL Glucose 132 H (74-99) mg/dL POC Glucose (mg/dL) (75-99) mg/dL Hemoglobin A1c (4.0-6.0) % HDL Cholesterol 84 H (40-60) mg/dL Urine Appearance (Clear) Urine Blood (Negative) Ur Leukocyte Esterase (Negative) Urine WBC (0-5) /hpf Urine WBC Clumps (None) /hpf Urine Bacteria (None) /hpf 03/08/18 03/08/18 03/08/18 Range/Units 07:47 11:08 12:16 RBC (3.80-5.40) m/uL Hgb (11.4-16.0) gm/dL Hct (34.0-46.0) % RDW (11.5-15.5) % Lymphocytes # (1.0-4.8) k/uL APTT 64.5 H (22.0-30.0) sec BUN (7-17) mg/dL Creatinine (0.52-1.04) mg/dL Glucose (74-99) mg/dL POC Glucose (mg/dL) 121 H (75-99) mg/dL Hemoglobin A1c (4.0-6.0) % HDL Cholesterol (40-60) mg/dL Urine Appearance Cloudy H (Clear) Urine Blood Trace H (Negative) Ur Leukocyte Esterase Large H (Negative) Urine WBC >182 H (0-5) /hpf Urine WBC Clumps Many H (None) /hpf Urine Bacteria Rare H (None) /hpf Assessment and Plan Plan: 1. NON STEMI with Unstable angina with known history of severe coronary artery disease with known history of CABG with patent SEQUEIRA to the LAD , elevated troponins, cardiology is on consult, plan for cardiac cath tomorrow or saturday she also will be seen consultation by nephrology secondary to the elevated creatinine with a pre-existing left renal transplant. Patient is IV heparin, and IV nitroglycerin aspirin 325 mg daily. Patient is high risk, we will discuss with cardiology options for her treatment, she is overutilizing her sublingual nitrates secondary to her symptoms. 2. CK D stage III with presence of left renal transplant December consult nephrology, iv hydration recommended. she has a transplant team at [facility] 3. Diabetes mellitus type 1 with multiple complications, on an insulin pump uncontrolled 4. Known CAD with prior CABG in the LAD requiring SEQUEIRA one-vessel bypass graft 2001 along with balloon angioplasty right main in 2010 status post heart catheterization January [address] Riley. Continue aspirin 81 mg daily, Lipitor 40 mg at bedtime, Imdur 60 mg daily, Lopressor 100 mg twice daily, IV nitro 5. Hypertension, hypertensive cardiovascular disease. Lasix 40 mg a.m. 20 mg p.m. Lopressor 100 mg twice daily. 6. Renal transplant history December, on prednisone 5 mg daily, and Imuran 100 mg daily, tacrolimus 2 mg twice a day 6. Osteoporosis with metabolic bone disease. 7. Hypothyroidism. Continue Synthroid 100 g daily 8. Obstructive sleep apnea for which patient is on CPAP device 9. Secondary hyperphosphatemia. Continue Renvela 800 mg 3 times daily. 10. Depression, recurrent, generalized anxiety disorder. Continue Xanax 0.25 mg 3 times daily as needed and Zoloft 100 mg daily. 11. Anemia of chronic disease. Patient started on Neupogen Saturday.
[2018-03-08 15:24] LABS: Glucose,Whole Blood 49 mg/dL (75-99)
[2018-03-08 15:51] LABS: Glucose,Whole Blood 82 mg/dL (75-99)
[2018-03-08 16:34] LABS: Glucose,Whole Blood 116 mg/dL (75-99)
[2018-03-08] MEDS: ATORVASTATIN 20 MG TAB PO SCH (20:08)
[2018-03-08] MEDS: SERTRALINE 100 MG TAB PO SCH (20:09)
[2018-03-08] MEDS: FUROSEMIDE 20 MG TAB PO SCH (20:09)
[2018-03-08 20:40] LABS: Glucose,Whole Blood 91 mg/dL (75-99)
[2018-03-09] MEDS: HEPARIN SOD,PORK IN 0.45% NACL 25,000 UNIT in 0.45% NACL 1 500ML.BAG IV SCH (01:37)
[2018-03-09] MEDS: SODIUM CHLORIDE 0.9% 1,000 ML IV SCH ×2 (02:20→15:36)
[2018-03-09] MEDS: NITROGLYCERIN-D5W PMX 50 MG in DEXTROSE/WATER 1 250ML.BAG IV SCH (02:26)
[2018-03-09 05:42] LABS: Glucose,Whole Blood 166 mg/dL (75-99)
[2018-03-09] MEDS: LEVOTHYROXINE 100 MCG TAB PO SCH ×2 (05:54→05:55)
[2018-03-09] MEDS: INSULIN PUMP MEAL BOLUS 1 UNIT MISC MISCELLANE SCH ×4 (05:54→23:35)
[2018-03-09] MEDS: ISOSORBIDE MONONITRATE ER 60 MG TAB.ER.24H PO SCH (05:55)
[2018-03-09] MEDS: ASPIRIN 325 MG TAB PO SCH (05:55)
[2018-03-09] MEDS: FUROSEMIDE 40 MG TAB PO SCH (05:55)
[2018-03-09] MEDS: PANTOPRAZOLE 40 MG TABLET PO SCH (05:57)
[2018-03-09] MEDS: METOPROLOL SUCCINATE (ER) 100 MG TAB.ER.24H PO SCH ×2 (05:57→20:03)
[2018-03-09 06:48] LABS: Anisocytosis Slight; Basophils % (A) 1 %; Eosinophils # (A) 0.1 k/uL (0-0.7); Eosinophils % (A) 3 %; HCT 31.6 % (34.0-46.0); HGB 10.2 gm/dL (11.4-16.0); Lymphocytes # (A) 0.4 k/uL (1.0-4.8); Lymphocytes % (A) 9 %; MCH 30.7 pg (25.0-35.0); MCHC 32.3 g/dL (31.0-37.0); MCV 95.1 fL (80.0-100.0); Mean Platelet Volume 7.6; Monocytes # (A) 0.3 k/uL (0-1.0); Monocytes % (A) 8 %; Neutrophils % (A) 75 %; Platelet Count 230 k/uL (150-450); RBC 3.33 m/uL (3.80-5.40); RDW 16.9 % (11.5-15.5)
[2018-03-09 07:27] LABS: Calcium 9.1 mg/dL (8.4-10.2); Potassium 4.8 mmol/L (3.5-5.1)
--- NOTE | 2018-03-09 07:56 | P.PN ---
Subjective Patient is seen in follow-up for renal has been management. Patient received a living related renal allograft in July 2016 at [facility]. Her baseline creatinine is near 2. Patient presented to the hospital with chest pain. Currently resolved. She is maintained on heparin drip. Potentially scheduled for cardiac catheterization today. IV fluids were started yesterday afternoon. Patient states she is starting to note swelling. Vital signs are stable. General: The patient appeared well nourished and normally developed. HEENT: Head exam is unremarkable. Neck is without jugular venous distension. LUNGS: Lungs are clear to auscultation and percussion. Breath sounds decreased. HEART: Rate and Rhythm are regular. First and second heart sounds normal. No murmurs, rubs or gallops. ABDOMEN: Abdominal exam reveals normal bowel sounds. Non-tender and non- distended. No evidence of peritonitis. EXTREMITITES: No clubbing, cyanosis, or edema. Objective - Vital Signs Vital signs: Vital Signs Temp 98.1 F 03/09/18 04:00 Pulse 60 03/09/18 04:00 Resp 16 03/09/18 04:00 BP 148/67 03/09/18 04:00 Pulse Ox 98 03/09/18 04:00 Intake & Output 03/08/18 03/09/18 03/09/18 18:59 06:59 18:59 Intake Total 840 274.8 461.161 Output Total 300 1350 Balance 540 -1075.2 461.161 Weight 64.5 kg Intake: Intake, IV Titration 274.8 461.161 Amount Heparin Sod,Pork in 0.45% 461.161 NaCl 25,000 unit In 0.45 % NaCl 1 500ml.bag @ 12 UNITS/KG/HR 14.58 mls/hr IV .Q24H [facility] Rx#: [id number] Nitroglycerin-D5w Pmx 50 199.8 mg In Dextrose/Water 1 250ml.bag @ 20 MCG/MIN 6 mls/hr IV .Q24H [facility] Rx#: [id number] Sodium Chloride 0.9% 1, 75 000 ml @ 75 mls/hr IV . [id number] [facility] Rx#:[id number] Oral 840 Output: Urine 300 1350 Other: Voiding Method Toilet Toilet - Labs CBC & Chem 7: 03/09/18 06:11 03/09/18 06:11 Labs: Abnormal Lab Results - Last 24 Hours (Table) 03/07/18 03/08/18 03/08/18 Range/Units 11:47 06:00 07:47 RBC (3.80-5.40) m/uL Hgb (11.4-16.0) gm/dL Hct (34.0-46.0) % RDW (11.5-15.5) % Lymphocytes # (1.0-4.8) k/uL APTT (22.0-30.0) sec BUN 34 H (7-17) mg/dL Creatinine 1.72 H (0.52-1.04) mg/dL Glucose 132 H (74-99) mg/dL POC Glucose (mg/dL) (75-99) mg/dL Hemoglobin A1c 8.2 H (4.0-6.0) % Urine Appearance Cloudy H (Clear) Urine Blood Trace H (Negative) Ur Leukocyte Esterase Large H (Negative) Urine WBC >182 H (0-5) /hpf Urine WBC Clumps Many H (None) /hpf Urine Bacteria Rare H (None) /hpf 03/08/18 03/08/18 03/08/18 Range/Units 11:08 12:16 15:21 RBC (3.80-5.40) m/uL Hgb (11.4-16.0) gm/dL Hct (34.0-46.0) % RDW (11.5-15.5) % Lymphocytes # (1.0-4.8) k/uL APTT 64.5 H (22.0-30.0) sec BUN (7-17) mg/dL Creatinine (0.52-1.04) mg/dL Glucose (74-99) mg/dL POC Glucose (mg/dL) 121 H 49 L (75-99) mg/dL Hemoglobin A1c (4.0-6.0) % Urine Appearance (Clear) Urine Blood (Negative) Ur Leukocyte Esterase (Negative) Urine WBC (0-5) /hpf Urine WBC Clumps (None) /hpf Urine Bacteria (None) /hpf 03/08/18 03/09/18 03/09/18 Range/Units 16:20 05:41 06:11 RBC 3.33 L (3.80-5.40) m/uL Hgb 10.2 L (11.4-16.0) gm/dL Hct 31.6 L (34.0-46.0) % RDW 16.9 H (11.5-15.5) % Lymphocytes # 0.4 L (1.0-4.8) k/uL APTT (22.0-30.0) sec BUN (7-17) mg/dL Creatinine (0.52-1.04) mg/dL Glucose (74-99) mg/dL POC Glucose (mg/dL) 116 H 166 H (75-99) mg/dL Hemoglobin A1c (4.0-6.0) % Urine Appearance (Clear) Urine Blood (Negative) Ur Leukocyte Esterase (Negative) Urine WBC (0-5) /hpf Urine WBC Clumps (None) /hpf Urine Bacteria (None) /hpf 03/09/18 03/09/18 Range/Units 06:11 06:11 RBC (3.80-5.40) m/uL Hgb (11.4-16.0) gm/dL Hct (34.0-46.0) % RDW (11.5-15.5) % Lymphocytes # (1.0-4.8) k/uL APTT 92.8 H (22.0-30.0) sec BUN 33 H (7-17) mg/dL Creatinine 1.57 H (0.52-1.04) mg/dL Glucose 160 H (74-99) mg/dL POC Glucose (mg/dL) (75-99) mg/dL Hemoglobin A1c (4.0-6.0) % Urine Appearance (Clear) Urine Blood (Negative) Ur Leukocyte Esterase (Negative) Urine WBC (0-5) /hpf Urine WBC Clumps (None) /hpf Urine Bacteria (None) /hpf Microbiology - Last 24 Hours (Table) 03/08/18 07:47 Urine Culture - Preliminary Urine,Clean Catch Assessment and Plan Plan: Assessment: 1. Status post living related renal allograft in 2017 secondary to diabetic kidney disease. 2. Chronic kidney disease stage IV secondary to calcineurin inhibitor use in a solitary kidney. Baseline creatinine near 2. 3. History of coronary artery disease status post CABG in 2001 and cardiac catheterization in December 2015. 4. Chest pain with concern for acute coronary syndrome. Cardiology following. 5. Systolic CHF with ejection fraction of 40-45% with moderate mitral regurgitation. 6. Diabetes mellitus. Plan: Continue with current antirejection medications. Avoid nephrotoxic agents and hypotensive episodes. Cleared for cardiac catheterization from nephrology standpoint. I discussed with the patient the risk of developing worsening renal failure from contrast- induced nephropathy. Patient understands and is agreeable to proceed. Patient was started on fluids yesterday evening for potential cardiac catheterization today. However since she starting to swell up, I will Hep-Lock her fluids now and resume at a lower rate of 50 mL an hour 1 hour prior to the procedure and continue for 6 hours postprocedure. Hold diuretics today unless cardiac catheterization gets postponed. Continue to monitor renal function and urine output.
[2018-03-09] MEDS: TACROLIMUS 1 MG CAP PO SCH ×2 (08:17→20:03)
[2018-03-09] MEDS: predniSONE 5 MG TAB PO SCH (08:17)
[2018-03-09] MEDS: cefTRIAXone IN SWFI 1,000 MG/10 ML SYRINGE IVP SCH (08:17)
[2018-03-09] MEDS: azaTHIOprine 50 MG TAB PO SCH (08:17)
[2018-03-09] MEDS: ARTIFICIAL TEARS-HYPROMELLOSE DROPS 15 ML BTL BOTH EYES SCH ×2 (08:17→20:02)
--- NOTE | 2018-03-09 08:18 | P.PN ---
Subjective Progress Note Date: 03/09/18 This is a 57-year-old pleasant lady patient of Dr. Bai, nephrology , dr Boyce cardiology. She has underlying history of CAD, with CABG 1 vessel disease 2001, with SEQUEIRA to the LAD, diabetes mellitus type 1 since age 5 , hypertensive cardiovascular disease, hypothyroidism, previous history of smoking, end-stage renal disease cessation from hemodialysis secondary to the new renal transplant July 2016. Last cardiac cath was in December 2015 which shows chronically occluded LAD in the mid segment as well as PDA, diffuse severe disease in all coronary arteries, patent SEQUEIRA to the LAD, PDA stent occlusion was chronic. She comes into the emergency room secondary to chest pain with chest pain with exertion, she is been having chest discomfort for the past 2 weeks, she has chest pain on exertion, she was in the attic last night, she developed again symptoms for which she did not have any relief with the nitroglycerin. She has been taking nitro on a daily basis and has consumed at least 25,at 3 bottles of sublingual nitroglycerin for the past 2 weeks. She presents now to the emergency room secondary to unstable angina In the emergency room she was evaluated, EKG shows normal sinus rhythm with possible left atrial enlargement, nonspecific ST-T wave changes chest x-ray shows normal chest there is clearing of pulmonary edema compared to old exam November 2016. Her troponin was 0.0 714 and 3, 0.134 this morning. Started on IV heparin, IV nitroglycerin with consultation to cardiology and nephrology 03/08. Patient without any acute chest pain. Chest pain improved this morning with the help of morphine. Nephrology recommends IV hydration for improvement in creatinine with possible Cardiac artery cath tomorrow or Saturday. Patient denies any chest pain, shortness of breath, abdominal pain. She is on insulin pump would have to be transitioned to sliding scale if going for cardiac cath tomorrow. 03/09 patient denies any chest discomfort since yesterday morning. Did have high blood pressure this morning according to the patient. This is for blood pressure medication including Imdur and metoprolol this morning. Lasix held due to kidney dysfunction. Fluids decreased to 50 mL per hour due to increased swelling noted in the left arm. Patient is nothing by mouth for possible cardiac cath this morning. Will be switched to insulin sliding scale if going for cardiac cath Objective - Vital Signs Vital signs: Vital Signs Temp 98.1 F 03/09/18 04:00 Pulse 60 03/09/18 04:00 Resp 16 03/09/18 04:00 BP 148/67 03/09/18 04:00 Pulse Ox 98 03/09/18 04:00 Intake & Output 03/08/18 03/09/18 03/09/18 18:59 06:59 18:59 Intake Total 840 274.8 461.161 Output Total 300 1350 Balance 540 -1075.2 461.161 Weight 64.5 kg Intake: Intake, IV Titration 274.8 461.161 Amount Heparin Sod,Pork in 0.45% 461.161 NaCl 25,000 unit In 0.45 % NaCl 1 500ml.bag @ 12 UNITS/KG/HR 14.58 mls/hr IV .Q24H [facility]O Rx#: [id number] Nitroglycerin-D5w Pmx 50 199.8 mg In Dextrose/Water 1 250ml.bag @ 20 MCG/MIN 6 mls/hr IV .Q24H [facility]O Rx#: [id number] Sodium Chloride 0.9% 1, 75 000 ml @ 75 mls/hr IV . [id number] [facility] Rx#:[id number] Oral 840 Output: Urine 300 1350 Other: Voiding Method Toilet Toilet - Exam - Constitutional General appearance: average body habitus, cooperative, no acute distress - EENT Eyes: anicteric sclerae, EOMI, photophobia ENT: NA/AT, normal oropharynx - Neck Neck: normal ROM - Respiratory Respiratory: bilateral: CTA, negative: diminished, dullness, rales - Cardiovascular Rhythm: regular Heart sounds: normal: S1, S2 Abnormal Heart Sounds: no systolic murmur, no diastolic murmur, no rub, no S3 Gallop, no S4 Gallop, no click, no other - Gastrointestinal General gastrointestinal: normal bowel sounds, soft - Integumentary Integumentary: decreased turgor, normal - Neurologic Neurologic: CNII-XII intact - Musculoskeletal Musculoskeletal: gait normal, strength equal bilaterally - Psychiatric Psychiatric: A&O x's 3, appropriate affect, intact judgment & insight - Labs CBC & Chem 7: 03/09/18 06:11 03/09/18 06:11 Labs: Abnormal Lab Results - Last 24 Hours (Table) 03/07/18 03/08/18 03/08/18 Range/Units 11:47 06:00 07:47 RBC (3.80-5.40) m/uL Hgb (11.4-16.0) gm/dL Hct (34.0-46.0) % RDW (11.5-15.5) % Lymphocytes # (1.0-4.8) k/uL APTT (22.0-30.0) sec BUN 34 H (7-17) mg/dL Creatinine 1.72 H (0.52-1.04) mg/dL Glucose 132 H (74-99) mg/dL POC Glucose (mg/dL) (75-99) mg/dL Hemoglobin A1c 8.2 H (4.0-6.0) % Urine Appearance Cloudy H (Clear) Urine Blood Trace H (Negative) Ur Leukocyte Esterase Large H (Negative) Urine WBC >182 H (0-5) /hpf Urine WBC Clumps Many H (None) /hpf Urine Bacteria Rare H (None) /hpf 03/08/18 03/08/18 03/08/18 Range/Units 11:08 12:16 15:21 RBC (3.80-5.40) m/uL Hgb (11.4-16.0) gm/dL Hct (34.0-46.0) % RDW (11.5-15.5) % Lymphocytes # (1.0-4.8) k/uL APTT 64.5 H (22.0-30.0) sec BUN (7-17) mg/dL Creatinine (0.52-1.04) mg/dL Glucose (74-99) mg/dL POC Glucose (mg/dL) 121 H 49 L (75-99) mg/dL Hemoglobin A1c (4.0-6.0) % Urine Appearance (Clear) Urine Blood (Negative) Ur Leukocyte Esterase (Negative) Urine WBC (0-5) /hpf Urine WBC Clumps (None) /hpf Urine Bacteria (None) /hpf 03/08/18 03/09/18 03/09/18 Range/Units 16:20 05:41 06:11 RBC 3.33 L (3.80-5.40) m/uL Hgb 10.2 L (11.4-16.0) gm/dL Hct 31.6 L (34.0-46.0) % RDW 16.9 H (11.5-15.5) % Lymphocytes # 0.4 L (1.0-4.8) k/uL APTT (22.0-30.0) sec BUN (7-17) mg/dL Creatinine (0.52-1.04) mg/dL Glucose (74-99) mg/dL POC Glucose (mg/dL) 116 H 166 H (75-99) mg/dL Hemoglobin A1c (4.0-6.0) % Urine Appearance (Clear) Urine Blood (Negative) Ur Leukocyte Esterase (Negative) Urine WBC (0-5) /hpf Urine WBC Clumps (None) /hpf Urine Bacteria (None) /hpf 03/09/18 03/09/18 Range/Units 06:11 06:11 RBC (3.80-5.40) m/uL Hgb (11.4-16.0) gm/dL Hct (34.0-46.0) % RDW (11.5-15.5) % Lymphocytes # (1.0-4.8) k/uL APTT 92.8 H (22.0-30.0) sec BUN 33 H (7-17) mg/dL Creatinine 1.57 H (0.52-1.04) mg/dL Glucose 160 H (74-99) mg/dL POC Glucose (mg/dL) (75-99) mg/dL Hemoglobin A1c (4.0-6.0) % Urine Appearance (Clear) Urine Blood (Negative) Ur Leukocyte Esterase (Negative) Urine WBC (0-5) /hpf Urine WBC Clumps (None) /hpf Urine Bacteria (None) /hpf Microbiology - Last 24 Hours (Table) 03/08/18 07:47 Urine Culture - Preliminary Urine,Clean Catch Assessment and Plan Plan: 1. NON STEMI with Unstable angina with known history of severe coronary artery disease with known history of CABG with patent SEQUEIRA to the LAD , elevated troponins, cardiology is on consult, plan for cardiac cath tomorrow or saturday she also will be seen consultation by nephrology secondary to the elevated creatinine with a pre-existing left renal transplant. Patient is IV heparin, and IV nitroglycerin aspirin 325 mg daily. Patient is high risk, we will discuss with cardiology options for her treatment, she is overutilizing her sublingual nitrates secondary to her symptoms. On nitroglycerin drip 2. CK D stage III with presence of left renal transplant December consult nephrology, iv hydration recommended. she has a transplant team at [facility] 3. Diabetes mellitus type 1 with multiple complications, on an insulin pump uncontrolled. Will switch to insulin sliding scale if planning to go for cardiac cath. 4. Known CAD with prior CABG in the LAD requiring SEQUEIRA one-vessel bypass graft 2001 along with balloon angioplasty right main in 2010 status post heart catheterization January [address] Riley. Continue aspirin 81 mg daily, Lipitor 40 mg at bedtime, Imdur 60 mg daily, Lopressor 100 mg twice daily, IV nitro 5. Hypertension, hypertensive cardiovascular disease. Lasix 40 mg a.m. 20 mg p.m. Lopressor 100 mg twice daily. 6. Renal transplant history December, on prednisone 5 mg daily, and Imuran 100 mg daily, tacrolimus 2 mg twice a day 6. Osteoporosis with metabolic bone disease. 7. Hypothyroidism. Continue Synthroid 100 g daily 8. Obstructive sleep apnea for which patient is on CPAP device 9. Secondary hyperphosphatemia. Continue Renvela 800 mg 3 times daily. 10. Depression, recurrent, generalized anxiety disorder. Continue Xanax 0.25 mg 3 times daily as needed and Zoloft 100 mg daily. 11. Anemia of chronic disease. Patient started on Neupogen Saturday.
[2018-03-09] MEDS ORDERED: LIDOCAINE 1% INJ 10MG/ML (20 ML MDV) ONE (11:03)
[2018-03-09] MEDS ORDERED: MIDAZOLAM 2 MG/2 ML VIAL ONE (11:14)
[2018-03-09] MEDS ORDERED: fentaNYL (PF) 50 MCG/ML 2 ML AMP ONE (11:14)
[2018-03-09] MEDS ORDERED: IV FLUID CONTINUATION 1,000 ML IV ONE (11:30)
[2018-03-09] MEDS ORDERED: fentaNYL (PF) 50 MCG/ML 2 ML AMP IVP ONE (11:42)
[2018-03-09] MEDS ORDERED: LIDOCAINE 1% (PF) 10MG/ML VIAL SQ ONE (11:46)
[2018-03-09 11:52] LABS: Glucose,Whole Blood 142 mg/dL (75-99)
[2018-03-09] MEDS ORDERED: IOPAMIDOL-370 125ML BTL INJ ONE (11:58)
[2018-03-09] MEDS ORDERED: amLODIPine 5 MG TAB ONE ×2 (12:00→12:30)
[2018-03-09] MEDS ORDERED: amLODIPine 5 MG TAB PO ONE ×2 (12:02→12:31)
[2018-03-09] MEDS ORDERED: RX INFO: IV CONTRAST WAS GIVEN 1 EACH MISC MISCELLANE PRN (12:08)
[2018-03-09] MEDS ORDERED: SODIUM CHLORIDE 0.9% 1,000 ML IV SCH (12:15)
[2018-03-09] MEDS: CLOPIDOGREL 75 MG TAB PO SCH (13:07)
[2018-03-09 16:25] LABS: Glucose,Whole Blood 120 mg/dL (75-99)
--- NOTE | 2018-03-09 18:46 | CC ---
CARDIAC CATHETERIZATION REPORT Ms. Kumar is a 57-year-old female known history of hypertension, hyperlipidemia, and diabetes mellitus, status post coronary artery bypass grafting, history of renal transplant, who presented with symptoms of angina and was diagnosed with non ST-segment elevation myocardial infarction. In view of that, recommendation made regarding cardiac catheterization. The procedures, risks and complications were discussed with the patient who is in full understanding and agreement. She was evaluated by the Nephrology service who felt that she is stable to proceed with the procedure. PROCEDURE: Patient was brought to label sewer in a fasting semisedated state after receiving fentanyl and Benadryl and achieving moderate conscious sedated state. Using Xylocaine anesthesia and Seldinger technique, a 6-Egyptian sheath was introduced in the left femoral artery. Selective right and left coronary angiography performed with 6-Egyptian 4 bend right and left Tracy catheter. Multiple views of the coronary artery including hemiaxial views obtained. The 6-Egyptian right Tracy was used to cannulate the SEQUEIRA to LAD. Images of the grafts were obtained and a 6-Egyptian right Tracy was used to cross the aortic valve and pressures were calculated. Following that, catheter and sheaths were removed. Hemostasis was obtained with compression of the left groin. There was no immediate complication. Patient is returned to room in stable condition. FINDINGS: Fluoroscopy: There was severe calcification involving all the coronary arteries. Left Main: This is a large-sized vessel bifurcating left circumflex, left anterior descending artery left main coronary artery has a 30% to 40% plaque distally. Left Anterior Descending Artery: This vessel is small in caliber, diffusely diseased, has a 90% stenosis proximally, then subsequently is totally occluded after takeoff of a small diagonal branch. There is no antegrade flow. Left Circumflex: This is a nondominant vessel, diffusely diseased, calcified, proximally has a 70% plaque. The obtuse marginal branches are small in caliber and diffusely diseased. Right Coronary Artery: This is a dominant vessel bifurcating distally PDA and posterolateral segment branches. The right coronary artery is calcified throughout its course, has diffuse intimal disease with area of stenosis up to 40%. The PDA is totally occluded proximally. The PLV has diffuse intimal disease and small in caliber. SEQUEIRA to LAD: The distal anastomotic site is patent. The flow in the LAD is brisk. There is intimal disease in the LAD without any evidence of high-grade stenosis. Left Ventriculogram: Left ventriculogram was not performed. Hemodynamics: There was no gradient across the aortic valve. The left ventricle end- diastolic pressure was 24-28 mmHg. CONCLUSION: 1. Calcified coronary artery. 2. Severe triple-vessel coronary disease. 3. Patent SEQUEIRA to LAD. 4. Elevated left ventricle end-diastolic pressure. RECOMMENDATION: In view of finding anatomy, I have recommend to maximize the medical therapy. The patient has no significant progression of disease compared with the images obtained in 2016. Those findings and recommendations were discussed with the patient and her family who are in full understanding and agreement. DURATION OF PROCEDURE: 15 minutes. GENIAL / ELIZABETHN: [id number] /
[2018-03-09] MEDS: SERTRALINE 100 MG TAB PO SCH (20:03)
[2018-03-09] MEDS: FUROSEMIDE 20 MG TAB PO SCH (20:04)
[2018-03-09 20:55] LABS: Glucose,Whole Blood 98 mg/dL (75-99)
[2018-03-09] MEDS ORDERED: ATORVASTATIN 40 MG TAB PO SCH (21:00)
[2018-03-10] MEDS: SODIUM CHLORIDE 0.9% 1,000 ML IV SCH (05:23)
[2018-03-10] MEDS: PANTOPRAZOLE 40 MG TABLET PO SCH (06:09)
[2018-03-10 06:14] LABS: Glucose,Whole Blood 175 mg/dL (75-99)
[2018-03-10] MEDS: INSULIN PUMP MEAL BOLUS 1 UNIT MISC MISCELLANE SCH (06:17)
[2018-03-10 06:38] LABS: Anisocytosis Slight; Basophils % (A) 0 %; Eosinophils # (A) 0.2 k/uL (0-0.7); Eosinophils % (A) 4 %; HCT 33.5 % (34.0-46.0); HGB 10.6 gm/dL (11.4-16.0); Lymphocytes # (A) 0.4 k/uL (1.0-4.8); Lymphocytes % (A) 9 %; MCH 30.1 pg (25.0-35.0); MCHC 31.8 g/dL (31.0-37.0); MCV 94.8 fL (80.0-100.0); Mean Platelet Volume 7.5; Monocytes # (A) 0.3 k/uL (0-1.0); Monocytes % (A) 7 %; Neutrophils # (A) 3.2 k/uL (1.3-7.7); Neutrophils % (A) 79 %; Platelet Count 231 k/uL (150-450); RBC 3.53 m/uL (3.80-5.40); RDW 16.8 % (11.5-15.5)
[2018-03-10 06:56] LABS: Calcium 9.5 mg/dL (8.4-10.2); Potassium 4.9 mmol/L (3.5-5.1)
--- NOTE | 2018-03-10 07:58 | P.PN ---
Subjective Patient is seen in follow-up for renal has been management. Patient received a living related renal allograft in July 2016 at [facility]. Her baseline creatinine is near 2. Patient presented to the hospital with chest pain. Currently resolved. She underwent cardiac catheterization on March 09 which revealed severe triple-vessel disease. These findings are similar poor 2016 catheterization. Chest pain currently resolved. Vital signs are stable. General: The patient appeared well nourished and normally developed. HEENT: Head exam is unremarkable. Neck is without jugular venous distension. LUNGS: Lungs are clear to auscultation and percussion. Breath sounds decreased. HEART: Rate and Rhythm are regular. First and second heart sounds normal. No murmurs, rubs or gallops. ABDOMEN: Abdominal exam reveals normal bowel sounds. Non-tender and non- distended. No evidence of peritonitis. EXTREMITITES: No clubbing, cyanosis, or edema. Objective - Vital Signs Vital signs: Vital Signs Temp 97.1 F L 03/10/18 04:00 Pulse 56 L 03/10/18 04:00 Resp 19 03/10/18 04:00 BP 137/61 03/10/18 04:00 Pulse Ox 98 03/10/18 04:00 Intake & Output 03/09/18 03/10/18 03/10/18 18:59 06:59 18:59 Intake Total 1398.161 10 Output Total 1300 Balance 1398.161 -1290 Weight 63.7 kg Intake: IV 75 10 Invasive Line 1 10 Intake, IV Titration 861.161 Amount Heparin Sod,Pork in 0.45% 461.161 NaCl 25,000 unit In 0.45 % NaCl 1 500ml.bag @ 12 UNITS/KG/HR 14.58 mls/hr IV .Q24H [facility] Rx#: [id number] Sodium Chloride 0.9% 1, 400 000 ml @ 75 mls/hr IV . [id number] [facility] Rx#:[id number] Oral 462 Output: Urine 1300 Other: Voiding Method Indwelling Catheter Toilet # Voids 2 - Labs CBC & Chem 7: 03/10/18 06:20 03/10/18 06:20 Labs: Abnormal Lab Results - Last 24 Hours (Table) 03/09/18 03/09/18 03/10/18 Range/Units 11:42 16:19 06:12 RBC (3.80-5.40) m/uL Hgb (11.4-16.0) gm/dL Hct (34.0-46.0) % RDW (11.5-15.5) % Lymphocytes # (1.0-4.8) k/uL BUN (7-17) mg/dL Creatinine (0.52-1.04) mg/dL Glucose (74-99) mg/dL POC Glucose (mg/dL) 142 H 120 H 175 H (75-99) mg/dL 03/10/18 03/10/18 Range/Units 06:20 06:20 RBC 3.53 L (3.80-5.40) m/uL Hgb 10.6 L (11.4-16.0) gm/dL Hct 33.5 L (34.0-46.0) % RDW 16.8 H (11.5-15.5) % Lymphocytes # 0.4 L (1.0-4.8) k/uL BUN 27 H (7-17) mg/dL Creatinine 1.65 H (0.52-1.04) mg/dL Glucose 150 H (74-99) mg/dL POC Glucose (mg/dL) (75-99) mg/dL Microbiology - Last 24 Hours (Table) 03/08/18 07:47 Urine Culture - Preliminary Urine,Clean Catch Gram Neg Bacilli Assessment and Plan Plan: Assessment: 1. Status post living related renal allograft in 2016 secondary to diabetic kidney disease. 2. Chronic kidney disease stage IV secondary to calcineurin inhibitor use in a solitary kidney. Baseline creatinine near 2. 3. History of coronary artery disease status post CABG in 2001 and cardiac catheterization in December 2015. 4. Chest pain with concern for acute coronary syndrome. Cardiology following. Patient had cardiac catheterization done on March 09 which revealed severe triple-vessel disease. 5. Systolic CHF with ejection fraction of 40-45% with moderate mitral regurgitation. 6. Diabetes mellitus. Plan: Continue with current antirejection medications. Avoid nephrotoxic agents and hypotensive episodes. Patient received IV hydration pre-and post cardiac catheterization. IV fluids now discontinued. Resume home dose of Lasix. Anticipate discharge soon. She will need to get a basic metabolic panel checked within 2-3 days of discharge to make sure renal function staying stable post catheterization.
[2018-03-10] MEDS: predniSONE 5 MG TAB PO SCH (08:20)
[2018-03-10] MEDS: azaTHIOprine 50 MG TAB PO SCH (08:20)
[2018-03-10] MEDS: METOPROLOL SUCCINATE (ER) 100 MG TAB.ER.24H PO SCH (08:21)
[2018-03-10] MEDS: TACROLIMUS 1 MG CAP PO SCH (08:21)
[2018-03-10] MEDS: FUROSEMIDE 40 MG TAB PO SCH (08:21)
[2018-03-10] MEDS: CLOPIDOGREL 75 MG TAB PO SCH (08:21)
[2018-03-10] MEDS: ARTIFICIAL TEARS-HYPROMELLOSE DROPS 15 ML BTL BOTH EYES SCH (08:21)
[2018-03-10] MEDS: ISOSORBIDE MONONITRATE ER 60 MG TAB.ER.24H PO SCH (08:21)
[2018-03-10] MEDS: cefTRIAXone IN SWFI 1,000 MG/10 ML SYRINGE IVP SCH (08:22)
[2018-03-10 08:53] VITALS: BP 162/74; PULSE 58; RESP 16; TEMP 96.5
[2018-03-10] MEDS ORDERED: ASPIRIN 81 MG PO SCH (09:00)
[2018-03-10] MEDS ORDERED: amLODIPine 5 MG TAB PO SCH (09:00)
--- NOTE | 2018-03-10 09:19 | P.DS ---
Providers Date of admission: 03/07/18 15:28 Attending physician: Debbie Lopez Consults: 03/07/18 01:53 Consult Physician Urgent Consulting Provider: Natalie Diaz Consult Reason/Comments: Acute coronary syndrome Do you want consulting provider notified?: Already Contacted 03/07/18 11:03 Consult Physician Routine Consulting Provider: Gee Brown Consult Reason/Comments: kidney transplant, possible heart cath Do you want consulting provider notified?: Yes Primary care physician: Jean Paul Bai [facility] Course: This is a 57-year-old pleasant lady patient of Dr. Bai, nephrology , dr Boyce cardiology. She has underlying history of CAD, with CABG 1 vessel disease 2001, with SEQUEIRA to the LAD, diabetes mellitus type 1 since age 5 , hypertensive cardiovascular disease, hypothyroidism, previous history of smoking, end-stage renal disease cessation from hemodialysis secondary to the new renal transplant July 2016. Last cardiac cath was in December 2015 which shows chronically occluded LAD in the mid segment as well as PDA, diffuse severe disease in all coronary arteries, patent SEQUEIRA to the LAD, PDA stent occlusion was chronic. She comes into the emergency room secondary to chest pain with chest pain with exertion, she is been having chest discomfort for the past 2 weeks, she has chest pain on exertion, she was in the attic last night, she developed again symptoms for which she did not have any relief with the nitroglycerin. She has been taking nitro on a daily basis and has consumed at least 25,at 3 bottles of sublingual nitroglycerin for the past 2 weeks. She presents now to the emergency room secondary to unstable angina In the emergency room she was evaluated, EKG shows normal sinus rhythm with possible left atrial enlargement, nonspecific ST-T wave changes chest x-ray shows normal chest there is clearing of pulmonary edema compared to old exam November 2016. Her troponin was 0.0 714 and 3, 0.134 this morning. Started on IV heparin, IV nitroglycerin with consultation to cardiology and nephrology 03/08. Patient without any acute chest pain. Chest pain improved this morning with the help of morphine. Nephrology recommends IV hydration for improvement in creatinine with possible Cardiac artery cath tomorrow or Saturday. Patient denies any chest pain, shortness of breath, abdominal pain. She is on insulin pump would have to be transitioned to sliding scale if going for cardiac cath tomorrow. 03/09 patient denies any chest discomfort since yesterday morning. Did have high blood pressure this morning according to the patient. This is for blood pressure medication including Imdur and metoprolol this morning. Lasix held due to kidney dysfunction. Fluids decreased to 50 mL per hour due to increased swelling noted in the left arm. Patient is nothing by mouth for possible cardiac cath this morning. Will be switched to insulin sliding scale if going for cardiac cath 03/10 patient denies any chest pain or shortness of breath. Creatinine 1.6 by stable as compared to yesterday. Patient underwent cardiac cath which suggested triple vessel disease with patent SEQUEIRA to LAD no change or progression since 2015 cardiac cath was stop Norvasc initiated and Plavix added Discharge diagnosis 1. NON STEMI with Unstable angina with known history of severe coronary artery disease with known history of CABG with patent SEQUEIRA to the LAD 2. CK D stage III with presence of left renal transplant December 3. Diabetes mellitus type 1 with multiple complications, on an insulin pump 4. Known CAD with prior CABG in the LAD requiring SEQUEIRA one-vessel bypass graft 2001 along with balloon angioplasty right main in 2010 status post heart catheterization January [address] Riley. 5. Hypertension, hypertensive cardiovascular disease. 6. Renal transplant history December,. Osteoporosis with metabolic bone disease. 7. Hypothyroidism 8. Obstructive sleep apnea 9. Secondary hyperphosphatemia 10. Depression, recurrent, generalized anxiety disorder. 11. Anemia of chronic disease. Patient Condition at Discharge: Serious Plan - Discharge Summary Discharge Rx Participant: No New Discharge Prescriptions: New amLODIPine [Norvasc] 5 mg PO DAILY #30 tab Atorvastatin [Lipitor] 40 mg PO HS #30 tab Clopidogrel [Plavix] 75 mg PO DAILY #30 tab Cephalexin [Keflex] 250 mg PO Q12HR #22 capsule Continue Aspirin 81 mg PO DAILY Levothyroxine Sodium [Synthroid] 100 mcg PO QAM Sertraline HCl 100 mg PO HS ALPRAZolam [Xanax] 0.25 mg PO TID PRN #90 tab PRN Reason: Anxiety Nitroglycerin Sl Tabs [Nitrostat] 0.4 mg SL Q5M PRN PRN Reason: Chest Pain Isosorbide Mononitrate ER [Imdur] 60 mg PO QAM Propylene Glycol/Peg 400/Pf [Systane 0.3-0.4% Eye Drops] 1 drop BOTH EYES BID Tacrolimus [Prograf] 2 mg PO BID Pantoprazole Sodium [Protonix] 40 mg PO DAILY predniSONE 5 mg PO DAILY azaTHIOprine [Imuran] 100 mg PO DAILY Metoprolol Succinate (ER) [Toprol XL] 100 mg PO BID INSULIN LISPRO (For Pump) [humaLOG (For Pump)] 0.01 units SQ-PUMP CONTINUOUS Furosemide [Lasix] 40 mg PO DAILY Furosemide [Lasix] 20 mg PO HS Discontinued Atorvastatin [Lipitor] 20 mg PO HS Discharge Medication List Aspirin 81 mg PO DAILY 10/02/15 [History] Levothyroxine Sodium [Synthroid] 100 mcg PO QAM 10/02/15 [History] Sertraline HCl 100 mg PO HS 10/02/15 [History] ALPRAZolam [Xanax] 0.25 mg PO TID PRN #90 tab 12/12/15 [Rx] Isosorbide Mononitrate ER [Imdur] 60 mg PO QAM 01/02/16 [History] Nitroglycerin Sl Tabs [Nitrostat] 0.4 mg SL Q5M PRN 01/02/16 [History] Propylene Glycol/Peg 400/Pf [Systane 0.3-0.4% Eye Drops] 1 drop BOTH EYES BID [History] Furosemide [Lasix] 20 mg PO HS 03/06/18 [History] Furosemide [Lasix] 40 mg PO DAILY 03/06/18 [History] INSULIN LISPRO (For Pump) [humaLOG (For Pump)] 0.01 units SQ-PUMP CONTINUOUS [History] Metoprolol Succinate (ER) [Toprol XL] 100 mg PO BID 03/06/18 [History] Pantoprazole Sodium [Protonix] 40 mg PO DAILY 03/06/18 [History] Tacrolimus [Prograf] 2 mg PO BID 03/06/18 [History] azaTHIOprine [Imuran] 100 mg PO DAILY 03/06/18 [History] predniSONE 5 mg PO DAILY 03/06/18 [History] Atorvastatin [Lipitor] 40 mg PO HS #30 tab 03/10/18 [Rx] Cephalexin [Keflex] 250 mg PO Q12HR #22 capsule 03/10/18 [Rx] Clopidogrel [Plavix] 75 mg PO DAILY #30 tab 03/10/18 [Rx] amLODIPine [Norvasc] 5 mg PO DAILY #30 tab 03/10/18 [Rx] Follow up Appointment(s)/Referral(s): Aramis Riley MD [STAFF PHYSICIAN] - 1 Week Jean Paul Bai MD [Primary Care Provider] - 1-2 days Ambulatory/Diagnostic Orders: Comprehensive Metabolic Panel [LAB.AMB] Time Frame: 3 Days, Location: None Selected Patient Instructions/Handouts: Chest Pain (ED) Discharge Disposition: HOME SELF-CARE
[2018-03-10 11:12] LABS: Glucose,Whole Blood 58 mg/dL (75-99)
[2018-03-10 11:33] LABS: Glucose,Whole Blood 78 mg/dL (75-99)
--- NOTE | 2018-03-10 14:05 | P.PN ---
Subjective Progress Note Date: 03/10/18 Principal diagnosis: Severe triple-vessel coronary artery disease, chest pain, ESRD, hypertension, hyperlipidemia, PVD, non-ST elevated [place] Progress note dated 03/10/2018. Patient seen in follow-up on selective care unit. Denies any specific complaints, denies any chest pain or shortness of breath. Remains pulse ox is 98%, patient is afebrile, hemodynamically stable. Tolerating ambulation, left groin puncture site is clean dry and intact, distal pulses are intact. She is on dual antiplatelet therapy with Plavix and aspirin , she continues on IV Rocephin, for evidence of UTI with gram-negative bacilli in the urine cultures. From cardiac perspective patient is stable, and could be discharged home today. Objective - Vital Signs Vital signs: Vital Signs Temp 96.5 F L 03/10/18 08:00 Pulse 58 L 03/10/18 08:00 Resp 16 03/10/18 08:00 BP 162/74 03/10/18 08:00 Pulse Ox 98 03/10/18 08:00 Intake & Output 03/09/18 03/10/18 03/10/18 18:59 06:59 18:59 Intake Total 1398.161 10 490 Output Total 1300 450 Balance 1398.161 -1290 40 Weight 63.7 kg Intake: IV 75 10 10 Invasive Line 1 10 10 Intake, IV Titration 861.161 Amount Heparin Sod,Pork in 0.45% 461.161 NaCl 25,000 unit In 0.45 % NaCl 1 500ml.bag @ 12 UNITS/KG/HR 14.58 mls/hr IV .Q24H ALFREDO Rx#: [id number] Sodium Chloride 0.9% 1, 400 000 ml @ 75 mls/hr IV . [id number] ALFREDO Rx#:[id number] Oral 462 480 Output: Urine 1300 450 Other: Voiding Method Indwelling Catheter Toilet Toilet # Voids 2 - Exam GENERAL EXAM: Alert, pleasant, 57-year-old white female comfortable in no apparent distress. HEAD: Normocephalic/atraumatic. EYES: Normal reaction of pupils, equal size. Conjunctiva pink, sclera white. NOSE: Clear with pink turbinates. THROAT: No erythema or exudates. NECK: No masses, no JVD, no thyroid enlargement, no adenopathy. CHEST: No chest wall deformity. Symmetrical expansion. LUNGS: Equal air entry with no crackles, wheeze, rhonchi or dullness. CVS: Regular rate and rhythm, normal S1 and S2, no gallops, no murmurs, no rubs ABDOMEN: Soft, nontender. No hepatosplenomegaly, normal bowel sounds, no guarding or rigidity. EXTREMITIES: No clubbing, no edema, no cyanosis, 2+ pulses and upper and lower extremities. Left groin puncture site is clean dry and intact, pulses are intact. MUSCULOSKELETAL: Muscle strength and tone normal. SPINE: No scoliosis or deformity SKIN: No rashes CENTRAL NERVOUS SYSTEM: Alert and oriented -3. No focal deficits, tone is normal in all 4 extremities. PSYCHIATRIC: Alert and oriented -3. Appropriate affect. Intact judgment and insight. - Labs CBC & Chem 7: 03/10/18 06:20 03/10/18 06:20 Labs: Abnormal Lab Results - Last 24 Hours (Table) 03/09/18 03/10/18 03/10/18 Range/Units 16:19 06:12 06:20 RBC 3.53 L (3.80-5.40) m/uL Hgb 10.6 L (11.4-16.0) gm/dL Hct 33.5 L (34.0-46.0) % RDW 16.8 H (11.5-15.5) % Lymphocytes # 0.4 L (1.0-4.8) k/uL BUN (7-17) mg/dL Creatinine (0.52-1.04) mg/dL Glucose (74-99) mg/dL POC Glucose (mg/dL) 120 H 175 H (75-99) mg/dL 03/10/18 03/10/18 Range/Units 06:20 11:07 RBC (3.80-5.40) m/uL Hgb (11.4-16.0) gm/dL Hct (34.0-46.0) % RDW (11.5-15.5) % Lymphocytes # (1.0-4.8) k/uL BUN 27 H (7-17) mg/dL Creatinine 1.65 H (0.52-1.04) mg/dL Glucose 150 H (74-99) mg/dL POC Glucose (mg/dL) 58 L (75-99) mg/dL Microbiology - Last 24 Hours (Table) 03/08/18 07:47 Urine Culture - Preliminary Urine,Clean Catch Gram Neg Bacilli Assessment and Plan Plan: Assessment: #1. Acute non-ST elevated [place], with symptoms of chest discomfort, and associated shortness of breath #2. Positive troponins #3. History of coronary artery disease with prior bypass grafting in 2001, heart catheterization from 03/09/2018 showed patent SEQUEIRA to LAD, severe triple- vessel coronary disease. #4. End-stage renal disease #5. Hypertension #6. Diabetes mellitus Plan: Patient is stable for discharge home from cardiac perspective, no chest pain, no shortness of breath, tolerating ambulation, vital signs remain stable. Continue on dual antiplatelet therapy in the form of Plavix and aspirin. Continue Lipitor, and Norvasc. I performed a history & physical examination of the patient and discussed their management with my nurse practitioner, Kavitha Guillory. I reviewed the nurse practitioner's note and agree with the documented findings and plan of care. Lung sounds are clear. Heart sounds are normal S1 and S2. The findings and the impression was discussed with the patient. I attest to the documentation by the nurse practitioner. Time with Patient: Less than 30
== END 2018-03-10 13:20 | disposition home or self-care (01) | DRG 281 ==
LOC: EC 23:13 → 6SEL 03-07 01:58 → OBSVTOIN 03-07 15:28
PROVIDERS: ADMIT Family Medicine; ATTEND Family Medicine
PROC: B2111ZZ Fluoroscopy of Multiple Coronary Arteries using Low Osmolar Contrast (ICD-10-PCS; 2018-03-09)
PROC: B2181ZZ Fluoroscopy of Left Internal Mammary Bypass Graft using Low Osmolar Contrast (ICD-10-PCS; 2018-03-09)
PROC: 4A023N7 Measurement of Cardiac Sampling and Pressure, Left Heart, Percutaneous Approach (ICD-10-PCS; principal; 2018-03-09 10:52)
DX: I21.4 Non-ST elevation (NSTEMI) myocardial infarction (principal); N18.4 Chronic kidney disease, stage 4 (severe); Z94.0 Kidney transplant status; F33.9 Major depressive disorder, recurrent, unspecified; N39.0 Urinary tract infection, site not specified; I13.0 Hypertensive heart and chronic kidney disease with heart failure and stage 1 through stage 4 chronic kidney disease, or unspecified chronic kidney disease; I50.22 Chronic systolic (congestive) heart failure; I25.110 Atherosclerotic heart disease of native coronary artery with unstable angina pectoris; Z96.41 Presence of insulin pump (external) (internal); I25.84 Coronary atherosclerosis due to calcified coronary lesion; E78.5 Hyperlipidemia, unspecified; E10.22 Type 1 diabetes mellitus with diabetic chronic kidney disease; Z96.1 Presence of intraocular lens; E10.51 Type 1 diabetes mellitus with diabetic peripheral angiopathy without gangrene; D63.1 Anemia in chronic kidney disease; F41.1 Generalized anxiety disorder; E03.9 Hypothyroidism, unspecified; M81.0 Age-related osteoporosis without current pathological fracture; E83.39 Other disorders of phosphorus metabolism; B96.89 Other specified bacterial agents as the cause of diseases classified elsewhere; I34.0 Nonrheumatic mitral (valve) insufficiency; E88.89 Other specified metabolic disorders; I25.82 Chronic total occlusion of coronary artery; G47.33 Obstructive sleep apnea (adult) (pediatric); Z79.4 Long term (current) use of insulin; Z95.1 Presence of aortocoronary bypass graft; I25.2 Old myocardial infarction; Z98.42 Cataract extraction status, left eye; Z98.41 Cataract extraction status, right eye; Z90.710 Acquired absence of both cervix and uterus; Z98.61 Coronary angioplasty status; Z83.3 Family history of diabetes mellitus; Z99.89 Dependence on other enabling machines and devices; Z88.6 Allergy status to analgesic agent; Z88.8 Allergy status to other drugs, medicaments and biological substances; Z79.82 Long term (current) use of aspirin; Z79.890 Hormone replacement therapy; Z79.52 Long term (current) use of systemic steroids; Z79.899 Other long term (current) drug therapy; Z79.02 Long term (current) use of antithrombotics/antiplatelets; Z82.49 Family history of ischemic heart disease and other diseases of the circulatory system; Z87.891 Personal history of nicotine dependence
CPT/HCPCS: 36415; 71046; 80048; 80053; 80061; 81001; 82550; 82553; 83036; 83735; 84484; 85025; 85610; 85730; 87077; 87086; 87186; 93306; 93459; 93880; 96365; 96366; 96368; 96375; 96376; 99291

== ENCOUNTER → 2018-03-19 | Outpatient (CLI) | payer OTHER, MEDICARE ==
[2018-03-19 14:43] LABS: Albumin 4.1 g/dL (3.5-5.0); Calcium 9.9 mg/dL (8.4-10.2); Potassium 5.6 mmol/L (3.5-5.1); Total Bilirubin 0.5 mg/dL (0.2-1.3); Total Protein 6.8 g/dL (6.3-8.2)
== END | disposition home or self-care (01) ==
LOC: LABWHC1 13:38
PROVIDERS: ATTEND Internal Medicine
DX: N17.9 Acute kidney failure, unspecified (principal)
CPT/HCPCS: 36415; 80053

== ENCOUNTER 2019-08-22 14:15 | Observation (INO) | payer OTHER, MEDICARE ==
[2019-08-22] MEDS ORDERED: IPRATROPIUM-ALBUTEROL 3 ML NEB INHALATION STA (14:34)
[2019-08-22] MEDS ORDERED: MORPHINE SULFATE 4 MG/ML SYRINGE IVP STA (14:34)
[2019-08-22] MEDS ORDERED: ONDANSETRON 4 MG/2 ML VIAL IVP STA (14:34)
[2019-08-22 14:39] LABS: Glucose,Whole Blood 327 mg/dL (75-99)
--- NOTE | 2019-08-22 15:11 | ED ---
Chest Pain HPI - General Chief Complaint: Chest Pain Stated Complaint: Chest pain Time Seen by Provider: 08/22/19 14:17 Source: patient, EMS, RN notes reviewed Mode of arrival: EMS Limitations: no limitations - History of Present Illness Initial Comments: 58-year-old female presents emergency Department with chief complaint of chest pain. Patient has extensive history including LAD bypass, multiple stents, renal failure with transplant 2017, type I diabetic on insulin pump. Patient states that last few days she's not been feeling well she has left-sided chest, axilla discomfort. She has been short of breath, wheezing states that she's had a URI for last week. Patient states her blood sugar was very low this morning around 35. She states she ate some a few charms have blood sugar went up to 400. She did correct her blood sugar on her insulin pump. Patient states that they have discussed cardiac surgery again for her ongoing symptoms. Patient has been seen by multiple cardiologists and has most recently been seen by [facility]. - Related Data Home Medications Medication Instructions Recorded Confirmed Aspirin 81 mg PO DAILY 10/02/15 03/06/18 Levothyroxine Sodium [Synthroid] 100 mcg PO QAM 10/02/15 03/06/18 Sertraline HCl 100 mg PO HS 10/02/15 03/06/18 Isosorbide Mononitrate ER [Imdur] 60 mg PO QAM 01/02/16 03/06/18 Nitroglycerin Sl Tabs [Nitrostat] 0.4 mg SL Q5M PRN 01/02/16 03/06/18 Propylene Glycol/Peg 400/Pf 1 drop BOTH EYES BID 01/10/16 03/06/18 [Systane 0.3-0.4% Eye Drops] Furosemide [Lasix] 20 mg PO HS 03/06/18 03/06/18 Furosemide [Lasix] 40 mg PO DAILY 03/06/18 03/06/18 INSULIN LISPRO (For Pump) [humaLOG 0.01 units SQ-PUMP CONTINUOUS 03/06/18 (For Pump)] Metoprolol Succinate (ER) [Toprol 100 mg PO BID 03/06/18 03/06/18 XL] Pantoprazole Sodium [Protonix] 40 mg PO DAILY 03/06/18 03/06/18 Tacrolimus [Prograf] 2 mg PO BID 03/06/18 03/06/18 azaTHIOprine [Imuran] 100 mg PO DAILY 03/06/18 03/06/18 predniSONE 5 mg PO DAILY 03/06/18 03/06/18 Previous Rx's Medication Instructions Recorded ALPRAZolam [Xanax] 0.25 mg PO TID PRN #90 tab 12/12/15 Atorvastatin [Lipitor] 40 mg PO HS #30 tab 03/10/18 Cephalexin [Keflex] 250 mg PO Q12HR #22 capsule 03/10/18 Clopidogrel [Plavix] 75 mg PO DAILY #30 tab 03/10/18 amLODIPine [Norvasc] 5 mg PO DAILY #30 tab 03/10/18 Allergies Allergy/AdvReac Type Severity Reaction Status Date / Time mycophenolate mofetil AdvReac Oral Ulcers Verified 03/06/18 23:38 [From CellCept] nifedipine [From Procardia] AdvReac Rapid Verified 03/06/18 23:38 Heart Rate NSAIDS (Non-Steroidal AdvReac Chest Pain Verified 03/07/18 18:32 Anti-Inflamma Review of Systems ROS Statement: Those systems with pertinent positive or pertinent negative responses have been documented in the HPI. ROS Other: All systems not noted in ROS Statement are negative. EKG Findings - EKG Comments: EKG Findings:: EKG performed at 14:25 normal sinus rhythm nonspecific ST and T wave abnormality rate of 67 MI 138 QRS 84 QT/QTC 440/464 Past Medical History Past Medical History: Coronary Artery Disease (CAD), Chest Pain / Angina, Diabetes Mellitus, Hyperlipidemia, Hypertension, Myocardial Infarction ([place]), Thyroid Disorder Additional Past Medical History / Comment(s): Diabetes mellitus type 1 SINCE AGE 5 YRS. end-stage renal disease on hemodialysis Saturday. patient is no longer getting hemodialysis patient got kidney trans injan of 2016 Last Myocardial Infarction Date:: 2017 History of Any Multi-Drug Resistant Organisms: CRE Date of last positivie culture/infection: 01/10/16 *CRE-[facility] Serratia confirmed by [facility] MDRO Source:: blood see lab scanned report Past Surgical History: Appendectomy, Section, Coronary Bypass/CABG, Heart Catheterization, Heart Catheterization With Stent, Hysterectomy, Orthopedic Surgery Additional Past Surgical History / Comment(s): Balloon angioplasty 2010 right main with 90% occlusion prior. 4 stents- multiple caTHS. CABG 1 vessel disease 2001. SEQUEIRA to the LAD. BILATERAL CATARACTS REMOVED/IMPLANTS. Past Anesthesia/Blood Transfusion Reactions: Postoperative Nausea & Vomiting (PONV) Past Psychological History: Depression Smoking Status: Never smoker Past Alcohol Use History: Rare Past Drug Use History: None Reported - Past Family History Mother Family Medical History: Diabetes Mellitus Additional Family Medical History / Comment(s): Mother is alive at age 76 with history of diabetes mellitus type 2 diet-controlled, hypertension, irritable bowel syndrome Father Family Medical History: AFIB, Diabetes Mellitus, Hypertension Additional Family Medical History / Comment(s): Father is alive at age 77 with history of HIV fibrillation status post cardioversion and ablation, alcoholism, diabetes mellitus type 2, hypertension, obstructive sleep apnea with CPAP. Sister(s) Family Medical History: No Reported History Daughter(s) Family Medical History: No Reported History Additional Family Medical History / Comment(s): One daughter age 31 was cerebral palsy Son(s) Family Medical History: No Reported History Additional Family Medical History / Comment(s): One son age 29 with no major medical problems. General Exam Limitations: no limitations General appearance: alert, in no apparent distress Head exam: Present: atraumatic, normocephalic, normal inspection Eye exam: Present: normal appearance, PERRL, EOMI. Absent: scleral icterus, conjunctival injection, periorbital swelling ENT exam: Present: normal exam, mucous membranes moist Neck exam: Present: normal inspection, full ROM. Absent: tenderness, meningismus, lymphadenopathy Respiratory exam: Present: wheezes, other (sternal scar noted). Absent: normal lung sounds bilaterally, respiratory distress, rales, rhonchi, stridor Cardiovascular Exam: Present: regular rate, normal rhythm, normal heart sounds. Absent: systolic murmur, diastolic murmur, rubs, gallop, clicks GI/Abdominal exam: Present: soft, normal bowel sounds, other (Insulin pump noted). Absent: distended, tenderness, guarding, rebound, rigid Neurological exam: Present: alert, oriented X3, CN II-XII intact Skin exam: Present: warm, dry, intact, normal color. Absent: rash Course Vital Signs 08/22/19 08/22/19 08/22/19 14:23 14:29 15:18 Temperature 98.0 F Pulse Rate 69 62 Respiratory 18 20 Rate Blood Pressure 150/67 O2 Sat by Pulse 99 Oximetry 08/22/19 08/22/19 08/22/19 15:29 15:33 15:59 Temperature Pulse Rate 7 L 68 75 Respiratory 20 18 Rate Blood Pressure 161/68 O2 Sat by Pulse 98 92 L Oximetry 08/22/19 16:00 Temperature Pulse Rate 76 Respiratory 16 Rate Blood Pressure 161/68 O2 Sat by Pulse 92 L Oximetry Chest Pain MDM - MDM Patient's labs reveal elevated troponin, mild hyperglycemia, chronic renal failure. Patient be admitted for cardiac Patient secondary to extensive cardiac history. Disposition Clinical Impression: Chest pain, Hyperglycemia, Chronic renal failure Disposition: ADMITTED IP TO THIS HOSP Condition: Fair Referrals: Efrain Iqbal MD [Primary Care Provider] - 1-2 days
--- NOTE | 2019-08-22 15:23 | XR ---
EXAMINATION TYPE: XR chest 2V DATE OF EXAM: 08/22/2019 COMPARISON: 03/07/2018 HISTORY: Chest pain TECHNIQUE: FINDINGS: Heart and mediastinum are normal. Lungs are clear. Diaphragm is normal. There are sternal w ires. There are chest leads. Bony thorax is intact. IMPRESSION: No active cardiopulmonary disease. No change.
[2019-08-22 15:56] LABS: Anisocytosis Slight; Basophils % (A) 0 %; Eosinophils # (A) 0.1 k/uL (0-0.7); Eosinophils % (A) 1 %; HCT 35.5 % (34.0-46.0); HGB 11.5 gm/dL (11.4-16.0); Lymphocytes # (A) 0.3 k/uL (1.0-4.8); Lymphocytes % (A) 5 %; MCH 30.1 pg (25.0-35.0); MCHC 32.5 g/dL (31.0-37.0); MCV 92.6 fL (80.0-100.0); Mean Platelet Volume 9.3; Monocytes # (A) 0.3 k/uL (0-1.0); Monocytes % (A) 4 %; Neutrophils # (A) 5.9 k/uL (1.3-7.7); Neutrophils % (A) 88 %; Platelet Count 307 k/uL (150-450); RBC 3.83 m/uL (3.80-5.40); RDW 16.9 % (11.5-15.5); WBC 6.6 k/uL (3.8-10.6)
[2019-08-22 16:05] LABS: Albumin 4.6 g/dL (3.5-5.0); Calcium 9.9 mg/dL (8.4-10.2); Magnesium 1.9 mg/dL (1.6-2.3); Total Protein 7.7 g/dL (6.3-8.2)
[2019-08-22 16:07] LABS: Partial Thromboplastin Time 23.8 sec (22.0-30.0); Prothrombin Time 10.1 sec (9.0-12.0)
[2019-08-22 16:31] LABS: Creatine Kinase MB 0.8 ng/mL (0.0-2.4); Troponin I 0.03 ng/mL (0.000-0.034)
[2019-08-22] MEDS ORDERED: NITROGLYCERIN SL TABS 0.4 MG TAB SUBLINGUAL PRN ×2 (16:39→20:20)
[2019-08-22] MEDS ORDERED: HEPARIN SODIUM,PORCINE 5,000 UNIT/ML 1 ML VIAL IV ONE (16:39)
[2019-08-22] MEDS ORDERED: HYDROmorphone 1 MG/ML 1 ML SYRINGE IVP STA (16:40)
[2019-08-22] MEDS ORDERED: HEPARIN SOD,PORK IN 0.45% NACL 25,000 UNIT in 0.45% NACL 1 250ML.BAG IV SCH (16:45)
[2019-08-22 18:29] LABS: Glucose,Whole Blood 155 mg/dL (75-99)
[2019-08-22] MEDS ORDERED: ALPRAZolam 0.25 MG TAB PO PRN (20:20)
[2019-08-22 20:25] LABS: Glucose,Whole Blood 174 mg/dL (75-99)
[2019-08-22] MEDS ORDERED: Insulin Aspart (For Pump) 100 UNIT/ML VIAL SQ-PUMP SCH (20:30)
[2019-08-22] MEDS ORDERED: PROPYLENE GLYCOL BOTH EYES SCH (21:00)
[2019-08-22] MEDS ORDERED: PEG BOTH EYES SCH (21:00)
[2019-08-22] MEDS ORDERED: SERTRALINE 100 MG TAB PO SCH (21:00)
[2019-08-22] MEDS ORDERED: TACROLIMUS 1 MG CAP PO SCH (21:00)
[2019-08-22] MEDS ORDERED: ATORVASTATIN 40 MG TAB PO SCH (21:00)
[2019-08-22] MEDS: METOPROLOL SUCCINATE (ER) 100 MG TAB.ER.24H PO SCH (21:19)
[2019-08-22] MEDS: INSULIN LISPRO (For Pump) 100 UNIT/ML VIAL SQ-PUMP SCH (21:32)
[2019-08-22 23:47] VITALS: RESP 18
[2019-08-23] MEDS ORDERED: NITROGLYCERIN SL TABS 0.4 MG TAB SUBLINGUAL PRN (02:20)
[2019-08-23] MEDS ORDERED: ONDANSETRON 4 MG/2 ML VIAL IVP PRN (02:21)
[2019-08-23] MEDS ORDERED: HYDROmorphone 0.5 MG/0.5 ML SYRINGE IVP STA (02:21)
[2019-08-23 05:57] LABS: Glucose,Whole Blood 70 mg/dL (75-99)
[2019-08-23 06:16] LABS: Mean Platelet Volume 8.1; Platelet Count 241 k/uL (150-450)
[2019-08-23] MEDS: INSULIN LISPRO (For Pump) 100 UNIT/ML VIAL SQ-PUMP SCH (06:20)
[2019-08-23] MEDS ORDERED: LEVOTHYROXINE 100 MCG TAB PO SCH (06:30)
[2019-08-23 06:31] LABS: Cholesterol 192 mg/dL (<200); Triglycerides 70 mg/dL (<150)
[2019-08-23 06:38] LABS: LDL Cholesterol,Calculated 42 mg/dL (0-99)
[2019-08-23 06:39] LABS: HDL Cholesterol 136 mg/dL (40-60)
[2019-08-23] MEDS ORDERED: NITROGLYCERIN-D5W PMX 50 MG in DEXTROSE/WATER 1 250ML.BAG IV SCH (07:15)
[2019-08-23] MEDS ORDERED: MORPHINE SULFATE 4 MG/ML SYRINGE IVP PRN (07:49)
[2019-08-23] MEDS: METOPROLOL SUCCINATE (ER) 100 MG TAB.ER.24H PO SCH (08:05)
[2019-08-23] MEDS ORDERED: ISOSORBIDE MONONITRATE ER 60 MG TAB.ER.24H PO SCH (09:00)
[2019-08-23] MEDS ORDERED: FUROSEMIDE 40 MG TAB PO SCH (09:00)
[2019-08-23] MEDS ORDERED: predniSONE 5 MG TAB PO SCH (09:00)
[2019-08-23] MEDS ORDERED: CLOPIDOGREL 75 MG TAB PO SCH (09:00)
[2019-08-23] MEDS ORDERED: ASPIRIN 81 MG PO SCH (09:00)
[2019-08-23] MEDS ORDERED: PANTOPRAZOLE 40 MG TABLET PO SCH (09:00)
[2019-08-23] MEDS ORDERED: ASPIRIN 325 MG TAB PO SCH (09:00)
[2019-08-23] MEDS ORDERED: TACROLIMUS 1 MG CAP PO SCH (09:00)
[2019-08-23] MEDS ORDERED: azaTHIOprine 50 MG TAB PO SCH (09:00)
[2019-08-23 09:23] VITALS: BP 144/74; PULSE 67; TEMP 98.3
--- NOTE | 2019-08-23 09:26 | CONS ---
CONSULTATION Pual Kumar is a 58-year-old lady with a known history of diabetes, end-stage renal disease, was on dialysis and in 2018 also, she had a had a living donor kidney transplant. She still has diabetes and her blood sugar control has not been optimal. She has significant CAD. In 2001, she underwent a surgery with SEQUEIRA to LAD, had noncritical disease in other vessels at that time. Over the years, she has seen different production maintenance technician and the last cardiac cath was performed here in 2017, which revealed heavy calcification of her arteries with moderate disease. Since then, she has sought another opinion at [facility] by Dr. Benjie Nation. Dr. Nation apparently performed a cardiac cath in 2017 and again performed stenting of her circumflex and LAD according to the patient and this was in May 2019. The patient wishes to follow up in [facility] only and does not wish to have any procedures performed here at this time. She came into the hospital yesterday with complaints of having chest discomfort with a pressure-like sensation. Apparently she had another severe bout in May and she did not seek any medical attention at that time. This hospitalization was yesterday evening with what she described as discomfort in the chest with some diaphoresis and some shortness of breath and wheezing and recent upper respiratory tract infection. Her blood sugars apparently have been as high as 400. However, in the night she had another episode of chest pain, developed precordial ST depression and troponin has gone up and it appears that we are dealing with a non-ST elevation UT, but patient is completely pain-free. She is on a heparin drip. I am starting a nitroglycerin drip at 5 mics. The patient wishes to have invasive procedures performed at [facility] only. I have personally spoke to Dr. Nation and I will make transfer arrangements for her to go to [facility]. PAST MEDICAL HISTORY: 1. CAD with bypass surgery with a SEQUEIRA to LAD in 2001. 2. History of multiple PCIs, last one in circumflex and mid LAD in May 2019. 3. History of end-stage renal disease, was on hemodialysis. Then had a renal transplant from a living donor in 2017 and now has creatinine in the range of 1.8. She has diabetes with other complications and suboptimal control. PAST SURGICAL HISTORY: She is status post section, appendectomy. MEDICATIONS: At home included Prograf, Imuran, prednisone, Protonix, levothyroxine, metoprolol succinate, insulin pump, Imdur, Plavix, aspirin, atorvastatin. ALLERGIES: SHE IS ALLERGIC TO NIFEDIPINE, NONSTEROIDALS AND ALSO MYCOPHENOLATE. PHYSICAL EXAMINATION: Blood pressure is 118/70, pulse rate is 60 per minute. JVD is not evident. Bilateral soft carotid bruits are audible. Heart exam reveals S1, S2 with a short systolic murmur. LUNGS: Fine rales both bases. Abdomen is soft, nontender. Lower extremities reveal bilateral trace edema. No significant pulses are diminished. Central nervous system grossly no focal deficits. EKG revealed a sinus mechanism with precordial ST depression. Initial EKG revealed no significant acute changes, only nonspecific ST-segment changes were noted, but repeat EKG shows precordial ST depressions suggestive of circumflex ischemia. LABORATORY DATA: Reveals elevated troponin. IMPRESSION: 1. Non ST elevation UT. 2. Status post renal transplant. 3. Diabetes with other complications. 4. History of bypass surgery and PCI, last PCI performed at [facility] in May 2019 of the circumflex and LAD according to the patient. RECOMMENDATIONS: At the patient's request, I will transfer her to [facility] where she has had her previous care and she is a complex patient, requires complex intervention as well. I will make transfer arrangements. In the interim, we will place her on nitro and heparin drips. Discussed my thoughts in detail with the patient. Thank you very much for the consult. OLIVIA / ELIZABETHN: [id number] /
--- NOTE | 2019-08-23 09:40 | P.NPCON ---
History of Present Illness - Reason for Consult chronic renal failure - History of Present Illness Reason for consultation: Chronic kidney disease and kidney transplant management History of present illness: Patient is a 58-year-old female seen in renal consultation for chronic kidney disease and kidney transplant management. Patient underwent living related donor transplant in July 2016. She is currently maintained on prednisone, Imuran and Prograf. Her baseline creatinine is near 2. Patient presented to the hospital with left-sided chest pressure with radiation to her neck. Patient has extensive cardiac history as undergone CABG and also has 4 stents. Patient follows with cardiology out of [facility]. She is currently on nitro drip. No vomiting or diarrhea. Blood pressures controlled. No shortness of breath. No edema. She has been voiding. No hematuria or dysuria. Patient has long-standing history of diabetes mellitus and has an insulin pump. No fever or chills. Vital signs are stable. General: The patient appeared well nourished and normally developed. HEENT: Head exam is unremarkable. Neck is without jugular venous distension. LUNGS: Lungs are clear to auscultation and percussion. Breath sounds decreased. HEART: Rate and Rhythm are regular. First and second heart sounds normal. No murmurs, rubs or gallops. ABDOMEN: Abdominal exam reveals normal bowel sounds. Non-tender and non- distended. No evidence of peritonitis. EXTREMITITES: No clubbing, cyanosis, or edema. Past Medical History Past Medical History: Coronary Artery Disease (CAD), Chest Pain / Angina, Diabetes Mellitus, Hyperlipidemia, Hypertension, Myocardial Infarction ([place]), Thyroid Disorder Additional Past Medical History / Comment(s): Diabetes mellitus type 1 SINCE AGE 5 YRS. end-stage renal disease on hemodialysis Saturday. patient is no longer getting hemodialysis patient got kidney trans injan of 2016 Last Myocardial Infarction Date:: 2017 History of Any Multi-Drug Resistant Organisms: CRE Date of last positivie culture/infection: 01/10/16 *CRE-KPC Serratia confirmed by [facility] Source:: blood see lab scanned report Past Surgical History: Appendectomy, Section, Coronary Bypass/CABG, Heart Catheterization, Heart Catheterization With Stent, Hysterectomy, Orthopedic Surgery Additional Past Surgical History / Comment(s): Balloon angioplasty 2010 right main with 90% occlusion prior. 4 stents- multiple caTHS. CABG 1 vessel disease 2001. SEQUEIRA to the LAD. BILATERAL CATARACTS REMOVED/IMPLANTS. 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 Stopped working 3 years ago Smoking Status: Former smoker Past Alcohol Use History: Rare Additional Past Alcohol Use History / Comment(s): SMOKING: QUIT IN 1983, ONLY FOR 1 YR, PPD: LESS THAN HALF. Past Drug Use History: None Reported - Past Family History Mother Family Medical History: Diabetes Mellitus Additional Family Medical History / Comment(s): Mother is alive at age 76 with history of diabetes mellitus type 2 diet-controlled, hypertension, irritable bowel syndrome Father Family Medical History: AFIB, Diabetes Mellitus, Hypertension Additional Family Medical History / Comment(s): Father is alive at age 77 with history of HIV fibrillation status post cardioversion and ablation, alcoholism, diabetes mellitus type 2, hypertension, obstructive sleep apnea with CPAP. Sister(s) Family Medical History: No Reported History Daughter(s) Family Medical History: No Reported History Additional Family Medical History / Comment(s): One daughter age 31 was cerebral palsy Son(s) Family Medical History: No Reported History Additional Family Medical History / Comment(s): One son age 29 with no major medical problems. Medications and Allergies Home Medications Medication Instructions Recorded Confirmed Type Aspirin 81 mg PO DAILY 10/02/15 08/22/19 History Levothyroxine Sodium [Synthroid] 100 mcg PO DAILY 10/02/15 08/22/19 History Sertraline HCl 100 mg PO HS 10/02/15 08/22/19 History Nitroglycerin Sl Tabs [Nitrostat] 0.4 mg SL Q5M PRN 01/02/16 08/22/19 History Propylene Glycol/Peg 400/Pf 1 drop BOTH EYES BID 01/10/16 08/22/19 History [Systane 0.3-0.4% Eye Drops] Furosemide [Lasix] 40 mg PO DAILY 03/06/18 08/22/19 History Metoprolol Succinate (ER) [Toprol 100 mg PO BID 03/06/18 08/22/19 History XL] Pantoprazole Sodium [Protonix] 40 mg PO DAILY 03/06/18 08/22/19 History Tacrolimus [Prograf] 2 mg PO QAM 03/06/18 08/22/19 History azaTHIOprine [Imuran] 100 mg PO DAILY 03/06/18 08/22/19 History predniSONE 5 mg PO DAILY 03/06/18 08/22/19 History Atorvastatin [Lipitor] 40 mg PO HS #30 tab 03/10/18 08/22/19 Rx Clopidogrel [Plavix] 75 mg PO DAILY #30 tab 03/10/18 08/22/19 Rx ALPRAZolam [Xanax] 0.25 mg PO HS PRN 08/22/19 08/22/19 History Insulin Aspart (For Pump) [NovoLOG 0.01 unit SQ-PUMP CONTINUOUS 08/22/19 08/22/19 History (For Pump)] Isosorbide Mononitrate [Imdur] 120 mg PO DAILY 08/22/19 08/22/19 History NIFEdipine XL [Procardia Xl] 60 mg PO BID 08/22/19 08/22/19 History Tacrolimus [Prograf] 1 mg PO HS 08/22/19 08/22/19 History Allergies Allergy/AdvReac Type Severity Reaction Status Date / Time mycophenolate mofetil AdvReac Oral Ulcers Verified 08/22/19 17:36 [From CellCept] nifedipine [From Procardia] AdvReac Rapid Verified 08/22/19 17:36 Heart Rate/pt now takes NSAIDS (Non-Steroidal AdvReac Chest Pain Verified 08/22/19 17:36 Anti-Inflamma Physical Exam Vitals: Vital Signs Temp Pulse Pulse Resp BP BP Pulse Ox 08/23/19 08:00 98.3 F 67 18 144/74 96 08/23/19 03:12 98.2 F 61 18 119/75 97 08/23/19 03:09 67 18 08/22/19 23:46 98 F 67 18 146/75 98 08/22/19 23:40 20 08/22/19 20:00 98.4 F 81 18 151/66 97 08/22/19 17:38 20 08/22/19 17:30 67 18 143/71 99 08/22/19 17:00 70 18 162/70 99 08/22/19 16:30 74 20 163/69 98 08/22/19 16:00 76 16 161/68 98 08/22/19 15:59 75 18 92 L 08/22/19 15:33 68 08/22/19 15:29 7 L 20 161/68 98 08/22/19 15:18 62 08/22/19 14:29 20 08/22/19 14:23 98.0 F 69 18 150/67 99 Intake and Output 08/22/19 08/23/19 08/23/19 22:59 06:59 14:59 Intake Total 36 Balance 36 Intake: Intake, IV Titration 36 Amount Heparin Sod,Pork in 0.45% 36 NaCl 25,000 unit In 0.45 % NaCl 1 250ml.bag @ 12 UNITS/KG/HR 7.076 mls/hr IV .Q24H ALFREDO Rx#: [id number] Other: # Voids 2 Weight 58.967 kg 60.2 kg Results - Lab Results Most recent lab results Calcium 9.9 mg/dL (8.4-10.2) 08/22/19 14:37 Magnesium 1.9 mg/dL (1.6-2.3) 08/22/19 14:37 08/23/19 05:54 08/22/19 14:37 Assessment and Plan Plan: Assessment: 1. Status post living related donor transplant from July 2016. 2. 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 3. Insulin-dependent diabetes mellitus. 4. Chest pain. Maintain on Nitro and heparin drip. Cardiology following. 5. History of coronary artery disease status post CABG and cardiac stenting. 6. Hypertension with chronic kidney disease. Controlled. Plan: Maintain current immunosuppression medications. Patient wishes to go to [facility] for cardiac care. Stable from nephrology standpoint. Thank you for the consultation. I will continue to follow the patient with you during her hospital stay.
[2019-08-23 10:54] VITALS: BMI 25.9
--- NOTE | 2019-08-23 12:31 | P.HPIM ---
History of Present Illness H&P Date: 08/23/19 Chief Complaint: Unstable angina, advance CAD, chronic kidney disease post renal transplant, 58-year-old female one of Dr. Taylor's patient with past medical history of type 1 diabetes and insulin pump, chronic kidney disease post renal transplant 3 years ago who still have chronic kidney disease, history of CAD post CABG in 2001 and to angioplasty and stent placement in August 2018 for the circumflex and the the proximal lab LAD who also had 2 more angioplasty and stent placement of the proximal LAD and the circumflex back in May 2019 still have ejection fraction of 40% only who seen cardiology Dr. Benjie Carroll at [facility] remain on regular basis. Patient presented to the emergency department at [facility] last night complaining of worsening angina and substernal chest pain for the last 3 days with exertion with much worsening symptom consistent with shortness of breath nausea palpitation or symptoms become with minimum exertion. At the time was seen her eye troponin was mildly elevated she had slightly abnormal EKG with ST abnormality on the anterior lead was diagnosed with non-ST CO at the time started on heparin drip consult cardiology and admit patient to the hospital for the above problem. Review of Systems CONSTITUTIONAL: Well-developed no acute respiratory distress. EYES: No icterus sclerae, no conjunctivitis. EARS, NOSE, MOUTH, THROAT, and FACE: No sore throat, lymphadenopathy, carotid bruits or deformity. RESPIRATORY: Positive shortness of breath no cough or wheezes positive PND orthopnea CARDIOVASCULAR: Positive angina with chest pain with exertion positive PND and orthopnea with mild pulmonary edema. GASTROINTESTINAL: No Abd pain, Nausea or vomiting, no Diarrhea or constipation, No GI Bleed, no distention or masses. GENITOURINARY: Post kidney transplant with chronic kidney disease. INTEGUMENT/BREAST: Negative for any muscular injury with mild osteoarthritis.. HEMATOLOGIC/LYMPHATIC: Negative for bleed or purpura. MUSCULOSKELTAL: Negative for Myalgia or arthralgia. NEURLOGICAL: No LOC, Sz or syncope, blurred vision dizziness or abnormality.. BEHAVIORAL/PSYCH: Negative. ENDOCRINE: Negative. Past Medical History Past Medical History: Coronary Artery Disease (CAD), Chest Pain / Angina, Diabetes Mellitus, Hyperlipidemia, Hypertension, Myocardial Infarction (CO), Thyroid Disorder Additional Past Medical History / Comment(s): Diabetes mellitus type 1 SINCE AGE 5 YRS. end-stage renal disease on hemodialysis Saturday. patient is no longer getting hemodialysis patient got kidney trans injan of 2016 Last Myocardial Infarction Date:: 2016 History of Any Multi-Drug Resistant Organisms: CRE Date of last positivie culture/infection: 01/10/16 *CRE-[facility] confirmed by [facility] Source:: blood see lab scanned report Past Surgical History: Appendectomy, Section, Coronary Bypass/CABG, Heart Catheterization, Heart Catheterization With Stent, Hysterectomy, Orthopedic Surgery Additional Past Surgical History / Comment(s): Balloon angioplasty 2010 right main with 90% occlusion prior. 4 stents- multiple caTHS. CABG 1 vessel disease 2001. SEQUEIRA to the LAD. BILATERAL CATARACTS REMOVED/IMPLANTS. 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 Stopped working 3 years ago Smoking Status: Former smoker Past Alcohol Use History: Rare Additional Past Alcohol Use History / Comment(s): SMOKING: QUIT IN 1983, ONLY FOR 1 YR, PPD: LESS THAN HALF. Past Drug Use History: None Reported - Past Family History Mother Family Medical History: Diabetes Mellitus Additional Family Medical History / Comment(s): Mother is alive at age 76 with history of diabetes mellitus type 2 diet-controlled, hypertension, irritable bowel syndrome Father Family Medical History: AFIB, Diabetes Mellitus, Hypertension Additional Family Medical History / Comment(s): Father is alive at age 77 with history of HIV fibrillation status post cardioversion and ablation, alcoholism, diabetes mellitus type 2, hypertension, obstructive sleep apnea with CPAP. Sister(s) Family Medical History: No Reported History Daughter(s) Family Medical History: No Reported History Additional Family Medical History / Comment(s): One daughter age 31 was cerebral palsy Son(s) Family Medical History: No Reported History Additional Family Medical History / Comment(s): One son age 29 with no major medical problems. Medications and Allergies Home Medications Medication Instructions Recorded Confirmed Type Aspirin 81 mg PO DAILY 10/02/15 08/22/19 History Levothyroxine Sodium [Synthroid] 100 mcg PO DAILY 10/02/15 08/22/19 History Sertraline HCl 100 mg PO HS 10/02/15 08/22/19 History Nitroglycerin Sl Tabs [Nitrostat] 0.4 mg SL Q5M PRN 01/02/16 08/22/19 History Propylene Glycol/Peg 400/Pf 1 drop BOTH EYES BID 01/10/16 08/22/19 History [Systane 0.3-0.4% Eye Drops] Furosemide [Lasix] 40 mg PO DAILY 03/06/18 08/22/19 History Metoprolol Succinate (ER) [Toprol 100 mg PO BID 03/06/18 08/22/19 History XL] Pantoprazole Sodium [Protonix] 40 mg PO DAILY 03/06/18 08/22/19 History Tacrolimus [Prograf] 2 mg PO QAM 03/06/18 08/22/19 History azaTHIOprine [Imuran] 100 mg PO DAILY 03/06/18 08/22/19 History predniSONE 5 mg PO DAILY 03/06/18 08/22/19 History Atorvastatin [Lipitor] 40 mg PO HS #30 tab 03/10/18 08/22/19 Rx Clopidogrel [Plavix] 75 mg PO DAILY #30 tab 03/10/18 08/22/19 Rx ALPRAZolam [Xanax] 0.25 mg PO HS PRN 08/22/19 08/22/19 History Insulin Aspart (For Pump) [NovoLOG 0.01 unit SQ-PUMP CONTINUOUS 08/22/19 08/22/19 History (For Pump)] Isosorbide Mononitrate [Imdur] 120 mg PO DAILY 08/22/19 08/22/19 History NIFEdipine XL [Procardia Xl] 60 mg PO BID 08/22/19 08/22/19 History Tacrolimus [Prograf] 1 mg PO HS 08/22/19 08/22/19 History Allergies Allergy/AdvReac Type Severity Reaction Status Date / Time mycophenolate mofetil AdvReac Oral Ulcers Verified 08/22/19 17:36 [From CellCept] nifedipine [From Procardia] AdvReac Rapid Verified 08/22/19 17:36 Heart Rate/pt now takes NSAIDS (Non-Steroidal AdvReac Chest Pain Verified 08/22/19 17:36 Anti-Inflamma Physical Exam Vitals: Vital Signs Temp Pulse Pulse Resp BP BP Pulse Ox 08/23/19 08:00 98.3 F 67 18 144/74 96 08/23/19 03:12 98.2 F 61 18 119/75 97 08/23/19 03:09 67 18 08/22/19 23:46 98 F 67 18 146/75 98 08/22/19 23:40 20 08/22/19 20:00 98.4 F 81 18 151/66 97 08/22/19 17:38 20 08/22/19 17:30 67 18 143/71 99 08/22/19 17:00 70 18 162/70 99 08/22/19 16:30 74 20 163/69 98 08/22/19 16:00 76 16 161/68 98 08/22/19 15:59 75 18 92 L 08/22/19 15:33 68 08/22/19 15:29 7 L 20 161/68 98 08/22/19 15:18 62 08/22/19 14:29 20 08/22/19 14:23 98.0 F 69 18 150/67 99 Intake and Output 08/22/19 08/23/19 08/23/19 22:59 06:59 14:59 Intake Total 36 Balance 36 Intake: Intake, IV Titration 36 Amount Heparin Sod,Pork in 0.45% 36 NaCl 25,000 unit In 0.45 % NaCl 1 250ml.bag @ 12 UNITS/KG/HR 7.076 mls/hr IV .Q24H [facility] Rx#: [id number] Other: # Voids 2 Weight 58.967 kg 60.2 kg General Appearance: Alert, cooperative, no distress, appears stated age. Neck HEENT: Supple, no lymphadenopathy, no thyroid enlargement, no carotid bruits. Lungs: Decreased breath some bilaterally with fine rhonchi in the right base no crackles or wheezes. Chest Wall: Decrease expansion with deep inspiration no tenderness and no deformity was found on exam, no costochondral pain or discomfort. Heart: Regular rate and rhythm, S1, S2 normal, no murmur, rub or gallop. Back: Symmetric, no curvature, ROM normal, no CVA tenderness. Abdomen: Soft, non-tender, bowel sounds active all four quadrants, no masses, no organomegaly. Extremities: Extremities normal, atraumatic, no cyanosis or edema. Pulses: 2+ and symmetric. Skin: Skin color, texture, tugor normal, no rashes or lesions. Neurologic: Alert oriented x3 cranial nerves II through XII intact, no motor deficit, no abnormal balance or gait. Results CBC & Chem 7: 08/23/19 05:54 08/22/19 14:37 Labs: Abnormal Lab Results - Last 24 Hours (Table) 08/22/19 08/22/19 08/22/19 Range/Units 14:28 14:37 14:37 RDW 16.9 H (11.5-15.5) % Lymphocytes # 0.3 L (1.0-4.8) k/uL APTT (22.0-30.0) sec Sodium 135 L (137-145) mmol/L BUN 43 H (7-17) mg/dL Creatinine 1.82 H (0.52-1.04) mg/dL Glucose 281 H (74-99) mg/dL POC Glucose (mg/dL) 327 H (75-99) mg/dL AST 57 H (14-36) U/L Troponin I (0.000-0.034) ng/mL HDL Cholesterol (40-60) mg/dL 08/22/19 08/22/19 08/22/19 Range/Units 18:24 19:48 20:23 RDW (11.5-15.5) % Lymphocytes # (1.0-4.8) k/uL APTT (22.0-30.0) sec Sodium (137-145) mmol/L BUN (7-17) mg/dL Creatinine (0.52-1.04) mg/dL Glucose (74-99) mg/dL POC Glucose (mg/dL) 155 H 174 H (75-99) mg/dL AST (14-36) U/L Troponin I 0.232 H* (0.000-0.034) ng/mL HDL Cholesterol (40-60) mg/dL 08/22/19 08/23/19 08/23/19 Range/Units 22:19 03:04 05:52 RDW (11.5-15.5) % Lymphocytes # (1.0-4.8) k/uL APTT 62.9 H (22.0-30.0) sec Sodium (137-145) mmol/L BUN (7-17) mg/dL Creatinine (0.52-1.04) mg/dL Glucose (74-99) mg/dL POC Glucose (mg/dL) 70 L (75-99) mg/dL AST (14-36) U/L Troponin I 0.564 H* (0.000-0.034) ng/mL HDL Cholesterol (40-60) mg/dL 08/23/19 08/23/19 Range/Units 05:54 05:54 RDW (11.5-15.5) % Lymphocytes # (1.0-4.8) k/uL APTT 44.5 H (22.0-30.0) sec Sodium (137-145) mmol/L BUN (7-17) mg/dL Creatinine (0.52-1.04) mg/dL Glucose (74-99) mg/dL POC Glucose (mg/dL) (75-99) mg/dL AST (14-36) U/L Troponin I (0.000-0.034) ng/mL HDL Cholesterol 136 H (40-60) mg/dL Thrombosis Risk Factor Assmnt - DVT/VTE Prophylaxis DVT/VTE Prophylaxis: Pharmacologic Prophylaxis ordered, Mechanical Prophylaxis ordered Assessment and Plan Plan: 1 non-ST CO: Patient had slight elevated troponin with known chronic advance coronary artery disease, patient was hospitalized will continue CK with troponin consult cardiology patient most likely will need to go for heart cath whether to do it here or transferred to [facility] and do it by her primary big data solutions architect is to be determined. 2 unstable angina: Patient continued to have mild symptoms with early flush pulmonary edema along with recurrent angina and chest pain continue nitro continue anticoagulation at this point. 3 advanced coronary disease: Post CABG, post for angioplasty and stent placement had 4 of them done this past year with recurrent symptoms repeatedly specially with aggressiveness of her disease related to her other factors such as diabetes since age 4 high blood pressure height cholesterol along with a chronic kidney disease patient is extremely high risk for more blockage and more problem angiogram will be highly recommended this point. 4 post renal transplant: Continue antirejection drug consult nephrology this point. 5 chronic kidney disease: Stage IV patient remain on medical management at this point no dialysis still making good urine output. 6 brittle insulin-dependent diabetes mellitus type 1 remain on insulin pump continue Accu-Chek with sliding scales coverage. 7 hypertension: Blood pressure remain with significant fluctuation up and down continue metoprolol XL 100 mg twice a day nifedipine XL 60 mg a day. 8 hyperlipidemia: Remain on atorvastatin 40 mg daily. 9 ischemic cardiopathy: With ejection fraction of 40% only remain on beta odette along with furosemide not able to tolerate a sore are better with her kidney failure. 10 depression: Has been on Zoloft in the milligrams daily. 11 hypothyroidism: Remain on levothyroxine 100 g daily. 12 GI prophylaxis: Patient remain on pantoprazole 40 mg a day. 12 DVT prophylaxis: Remain on heparin drip at this point. CODE STATUS: Full code. Admit patient to inpatient status for more than 2 nights.
--- NOTE | 2019-08-23 12:36 | P.DS ---
Providers Date of admission: 08/22/19 17:17 Attending physician: Efrain Iqbal Consults: 08/22/19 16:39 Consult Physician Urgent Consulting Provider: Shad Calderon Consult Reason/Comments: chest pain Do you want consulting provider notified?: Yes 08/22/19 17:18 Consult Physician Routine Consulting Provider: Gee Brown Consult Reason/Comments: arf/crf Do you want consulting provider notified?: Yes, Notify in am Primary care physician: Efrain Iqbal Assessment: Chief Complaint: Unstable angina, advance CAD, chronic kidney disease post renal transplant, 58-year-old female one of Dr. Taylor's patient with past medical history of type 1 diabetes and insulin pump, chronic kidney disease post renal transplant 3 years ago who still have chronic kidney disease, history of CAD post CABG in 2001 and to angioplasty and stent placement in August 2018 for the circumflex and the the proximal lab LAD who also had 2 more angioplasty and stent placement of the proximal LAD and the circumflex back in May 2019 still have ejection fraction of 40% only who seen cardiology Dr. Benjie Carroll at [facility] remain on regular basis. Patient presented to the emergency department at [facility] last night complaining of worsening angina and substernal chest pain for the last 3 days with exertion with much worsening symptom consistent with shortness of breath nausea palpitation or symptoms become with minimum exertion. At the time was seen her eye troponin was mildly elevated she had slightly abnormal EKG with ST abnormality on the anterior lead was diagnosed with non-ST MS at the time started on heparin drip consult cardiology and admit patient to the hospital for the above problem. Review of Systems CONSTITUTIONAL: Well-developed no acute respiratory distress. EYES: No icterus sclerae, no conjunctivitis. EARS, NOSE, MOUTH, THROAT, and FACE: No sore throat, lymphadenopathy, carotid bruits or deformity. RESPIRATORY: Positive shortness of breath no cough or wheezes positive PND orthopnea CARDIOVASCULAR: Positive angina with chest pain with exertion positive PND and orthopnea with mild pulmonary edema. GASTROINTESTINAL: No Abd pain, Nausea or vomiting, no Diarrhea or constipation, No GI Bleed, no distention or masses. GENITOURINARY: Post kidney transplant with chronic kidney disease. INTEGUMENT/BREAST: Negative for any muscular injury with mild osteoarthritis.. HEMATOLOGIC/LYMPHATIC: Negative for bleed or purpura. MUSCULOSKELTAL: Negative for Myalgia or arthralgia. NEURLOGICAL: No LOC, Sz or syncope, blurred vision dizziness or abnormality.. BEHAVIORAL/PSYCH: Negative. ENDOCRINE: Negative. Physical Exam Vitals: Vital Signs Temp Pulse Pulse Resp BP BP Pulse Ox 08/23/19 08:00 98.3 F 67 18 144/74 96 08/23/19 03:12 98.2 F 61 18 119/75 97 08/23/19 03:09 67 18 08/22/19 23:46 98 F 67 18 146/75 98 08/22/19 23:40 20 08/22/19 20:00 98.4 F 81 18 151/66 97 08/22/19 17:38 20 08/22/19 17:30 67 18 143/71 99 08/22/19 17:00 70 18 162/70 99 08/22/19 16:30 74 20 163/69 98 08/22/19 16:00 76 16 161/68 98 08/22/19 15:59 75 18 92 L 08/22/19 15:33 68 08/22/19 15:29 7 L 20 161/68 98 08/22/19 15:18 62 08/22/19 14:29 20 08/22/19 14:23 98.0 F 69 18 150/67 99 Intake and Output 08/22/19 08/23/19 08/23/19 22:59 06:59 14:59 Intake Total 36 Balance 36 Intake: Intake, IV Titration 36 Amount Heparin Sod,Pork in 0.45% 36 NaCl 25,000 unit In 0.45 % NaCl 1 250ml.bag @ 12 UNITS/KG/HR 7.076 mls/hr IV .Q24H [facility] Rx#: [id number] Other: # Voids 2 Weight 58.967 kg 60.2 kg General Appearance: Alert, cooperative, no distress, appears stated age. Neck HEENT: Supple, no lymphadenopathy, no thyroid enlargement, no carotid bruits. Lungs: Decreased breath some bilaterally with fine rhonchi in the right base no crackles or wheezes. Chest Wall: Decrease expansion with deep inspiration no tenderness and no deformity was found on exam, no costochondral pain or discomfort. Heart: Regular rate and rhythm, S1, S2 normal, no murmur, rub or gallop. Back: Symmetric, no curvature, ROM normal, no CVA tenderness. Abdomen: Soft, non-tender, bowel sounds active all four quadrants, no masses, no organomegaly. Extremities: Extremities normal, atraumatic, no cyanosis or edema. Pulses: 2+ and symmetric. Skin: Skin color, texture, tugor normal, no rashes or lesions. Neurologic: Alert oriented x3 cranial nerves II through XII intact, no motor deficit, no abnormal balance or gait. Results CBC & Chem 7: 08/23/19 05:54 08/22/19 14:37 Labs: Abnormal Lab Results - Last 24 Hours (Table) 08/22/19 08/22/19 08/22/19 Range/Units 14:28 14:37 14:37 RDW 16.9 H (11.5-15.5) % Lymphocytes # 0.3 L (1.0-4.8) k/uL APTT (22.0-30.0) sec Sodium 135 L (137-145) mmol/L BUN 43 H (7-17) mg/dL Creatinine 1.82 H (0.52-1.04) mg/dL Glucose 281 H (74-99) mg/dL POC Glucose (mg/dL) 327 H (75-99) mg/dL AST 57 H (14-36) U/L Troponin I (0.000-0.034) ng/mL HDL Cholesterol (40-60) mg/dL 08/22/19 08/22/19 08/22/19 Range/Units 18:24 19:48 20:23 RDW (11.5-15.5) % Lymphocytes # (1.0-4.8) k/uL APTT (22.0-30.0) sec Sodium (137-145) mmol/L BUN (7-17) mg/dL Creatinine (0.52-1.04) mg/dL Glucose (74-99) mg/dL POC Glucose (mg/dL) 155 H 174 H (75-99) mg/dL AST (14-36) U/L Troponin I 0.232 H* (0.000-0.034) ng/mL HDL Cholesterol (40-60) mg/dL 08/22/19 08/23/19 08/23/19 Range/Units 22:19 03:04 05:52 RDW (11.5-15.5) % Lymphocytes # (1.0-4.8) k/uL APTT 62.9 H (22.0-30.0) sec Sodium (137-145) mmol/L BUN (7-17) mg/dL Creatinine (0.52-1.04) mg/dL Glucose (74-99) mg/dL POC Glucose (mg/dL) 70 L (75-99) mg/dL AST (14-36) U/L Troponin I 0.564 H* (0.000-0.034) ng/mL HDL Cholesterol (40-60) mg/dL 08/23/19 08/23/19 Range/Units 05:54 05:54 RDW (11.5-15.5) % Lymphocytes # (1.0-4.8) k/uL APTT 44.5 H (22.0-30.0) sec Sodium (137-145) mmol/L BUN (7-17) mg/dL Creatinine (0.52-1.04) mg/dL Glucose (74-99) mg/dL POC Glucose (mg/dL) (75-99) mg/dL AST (14-36) U/L Troponin I (0.000-0.034) ng/mL HDL Cholesterol 136 H (40-60) mg/dL Thrombosis Risk Factor Assmnt - DVT/VTE Prophylaxis DVT/VTE Prophylaxis: Pharmacologic Prophylaxis ordered, Mechanical Prophylaxis ordered Assessment and Plan Plan: 1 non-ST MS: Patient had slight elevated troponin with known chronic advance coronary artery disease, patient was hospitalized will continue CK with troponin consult cardiology patient most likely will need to go for heart cath whether to do it here or transferred to [facility] and do it by her primary admissions specialist is to be determined. 2 unstable angina: Patient continued to have mild symptoms with early flush pulmonary edema along with recurrent angina and chest pain continue nitro continue anticoagulation at this point. 3 advanced coronary disease: Post CABG, post for angioplasty and stent placement had 4 of them done this past year with recurrent symptoms repeatedly specially with aggressiveness of her disease related to her other factors such as diabetes since age 4 high blood pressure height cholesterol along with a chronic kidney disease patient is extremely high risk for more blockage and more problem angiogram will be highly recommended this point. 4 post renal transplant: Continue antirejection drug consult nephrology this point. 5 chronic kidney disease: Stage IV patient remain on medical management at this point no dialysis still making good urine output. 6 brittle insulin-dependent diabetes mellitus type 1 remain on insulin pump continue Accu-Chek with sliding scales coverage. 7 hypertension: Blood pressure remain with significant fluctuation up and down continue metoprolol XL 100 mg twice a day nifedipine XL 60 mg a day. 8 hyperlipidemia: Remain on atorvastatin 40 mg daily. 9 ischemic cardiopathy: With ejection fraction of 40% only remain on beta odette along with furosemide not able to tolerate a sore are better with her kidney failure. 10 depression: Has been on Zoloft in the milligrams daily. 11 hypothyroidism: Remain on levothyroxine 100 g daily. 12 GI prophylaxis: Patient remain on pantoprazole 40 mg a day. 12 DVT prophylaxis: Remain on heparin drip at this point. Hospital course: Patient was seen by cardiology, CK with troponin was elevated, patient decided to be transferred to [facility] to be close to her clinical professor transfer was process and patient left the hospital on 08/23/2019. With a troponin been elevated no change in EKG patient had non-ST MS at this point along with unstable angina, having symptom most likely have more blockage in the LAD need to have an urgent angiogram and possible angioplasty Patient Condition at Discharge: Fair Plan - Discharge Summary New Discharge Prescriptions: Continue Aspirin 81 mg PO DAILY Levothyroxine Sodium [Synthroid] 100 mcg PO DAILY Sertraline HCl 100 mg PO HS Nitroglycerin Sl Tabs [Nitrostat] 0.4 mg SL Q5M PRN PRN Reason: Chest Pain Propylene Glycol/Peg 400/Pf [Systane 0.3-0.4% Eye Drops] 1 drop BOTH EYES BID Tacrolimus [Prograf] 2 mg PO QAM Pantoprazole Sodium [Protonix] 40 mg PO DAILY predniSONE 5 mg PO DAILY azaTHIOprine [Imuran] 100 mg PO DAILY Metoprolol Succinate (ER) [Toprol XL] 100 mg PO BID Furosemide [Lasix] 40 mg PO DAILY Atorvastatin [Lipitor] 40 mg PO HS #30 tab Clopidogrel [Plavix] 75 mg PO DAILY #30 tab NIFEdipine XL [Procardia XL] 60 mg PO BID Tacrolimus [Prograf] 1 mg PO HS Isosorbide Mononitrate [Imdur] 120 mg PO DAILY Insulin Aspart (For Pump) [NovoLOG (For Pump)] 0.01 unit SQ-PUMP CONTINUOUS ALPRAZolam [Xanax] 0.25 mg PO HS PRN PRN Reason: Insomnia Discharge Medication List Aspirin 81 mg PO DAILY 10/02/15 [History] Levothyroxine Sodium [Synthroid] 100 mcg PO DAILY 10/02/15 [History] Sertraline HCl 100 mg PO HS 10/02/15 [History] Nitroglycerin Sl Tabs [Nitrostat] 0.4 mg SL Q5M PRN 01/02/16 [History] Propylene Glycol/Peg 400/Pf [Systane 0.3-0.4% Eye Drops] 1 drop BOTH EYES BID 01/10/16 [History] Furosemide [Lasix] 40 mg PO DAILY 03/06/18 [History] Metoprolol Succinate (ER) [Toprol XL] 100 mg PO BID 03/06/18 [History] Pantoprazole Sodium [Protonix] 40 mg PO DAILY 03/06/18 [History] Tacrolimus [Prograf] 2 mg PO QAM 03/06/18 [History] azaTHIOprine [Imuran] 100 mg PO DAILY 03/06/18 [History] predniSONE 5 mg PO DAILY 03/06/18 [History] Atorvastatin [Lipitor] 40 mg PO HS #30 tab 03/10/18 [Rx] Clopidogrel [Plavix] 75 mg PO DAILY #30 tab 03/10/18 [Rx] ALPRAZolam [Xanax] 0.25 mg PO HS PRN 08/22/19 [History] Insulin Aspart (For Pump) [NovoLOG (For Pump)] 0.01 unit SQ-PUMP CONTINUOUS 08/22/19 [History] Isosorbide Mononitrate [Imdur] 120 mg PO DAILY 08/22/19 [History] NIFEdipine XL [Procardia XL] 60 mg PO BID 08/22/19 [History] Tacrolimus [Prograf] 1 mg PO HS 08/22/19 [History] Follow up Appointment(s)/Referral(s): Efrain Iqbal MD [Primary Care Provider] - 1-2 days Discharge Disposition: DC/TRN IP [facility] W/PND READM
== END 2019-08-23 11:00 | disposition other institution (70) ==
LOC: EC 14:15 → 3SCARD 17:17
PROVIDERS: ADMIT Internal Medicine Geriatric Medicine; ATTEND Internal Medicine Geriatric Medicine
DX: I21.4 Non-ST elevation (NSTEMI) myocardial infarction (principal); N18.4 Chronic kidney disease, stage 4 (severe); I25.110 Atherosclerotic heart disease of native coronary artery with unstable angina pectoris; I12.9 Hypertensive chronic kidney disease with stage 1 through stage 4 chronic kidney disease, or unspecified chronic kidney disease; Z94.0 Kidney transplant status; E10.65 Type 1 diabetes mellitus with hyperglycemia; E10.22 Type 1 diabetes mellitus with diabetic chronic kidney disease; F32.9 Major depressive disorder, single episode, unspecified; E03.9 Hypothyroidism, unspecified; E78.5 Hyperlipidemia, unspecified; I25.5 Ischemic cardiomyopathy; Z98.42 Cataract extraction status, left eye; Z98.41 Cataract extraction status, right eye; Z96.1 Presence of intraocular lens; Z87.891 Personal history of nicotine dependence; Z95.1 Presence of aortocoronary bypass graft; Z95.5 Presence of coronary angioplasty implant and graft; Z90.710 Acquired absence of both cervix and uterus; Z90.49 Acquired absence of other specified parts of digestive tract; Z83.3 Family history of diabetes mellitus; Z82.49 Family history of ischemic heart disease and other diseases of the circulatory system; Z81.1 Family history of alcohol abuse and dependence; Z83.79 Family history of other diseases of the digestive system; Z84.89 Family history of other specified conditions; Z88.6 Allergy status to analgesic agent; Z88.8 Allergy status to other drugs, medicaments and biological substances; Z79.4 Long term (current) use of insulin; Z79.82 Long term (current) use of aspirin; Z79.890 Hormone replacement therapy; Z79.899 Other long term (current) drug therapy
CPT/HCPCS: 96376 ×2; 96375 ×2; 93005 ×2; 96365; 99285; 36415; 94640; 83880; 80061; 80053; 82553; 83690; 83735; 84484 ×2; 85025; 85049; 85610; 85730 ×2; 71046; G0378 ×2; J7500; J2270 ×2; J1644 ×2; J2405 ×2; J7507 ×2; J1170 ×2; J7512